=== PATIENT | male | born 1930 | race African-American/Black ===

== ENCOUNTER → 2017-01-20 | Outpatient (CLI) | payer MEDICARE | LOC: RAD 12:19 | PROVIDERS: ATTEND Family Medicine | DX: M79.642 Pain in left hand (principal) ==

== ENCOUNTER 2017-04-19 10:42 | Day surgery (SDC) | payer MEDICARE ==
[~2017-04-19 10:42] MED LIST: PROPOFOL INJ 200 MG/20 ML VIAL IV ONE
[2017-04-19 12:25] VITALS: BP 128/55
--- NOTE | 2017-04-19 13:21 | Operative Report ---
Operative Report DATE OF SURGERY: 04/19/17 Operative Report: The risks, benefits and alternatives of the procedure including risks of bleeding, perforation requiring surgery are explained to the patient detail and informed consent was obtained. Patient was placed in the left, lateral decubital position. Timeout was called. Propofol medications administered. A rectal examination was done which did not reveal any masses, tears or fissures. An Olympus video scope was inserted into the patient's rectum. The scope was then gradually advanced all the way to the cecum. The cecum was identified by the usual anatomical landmarks including the ileocecal valve as well as appendiceal office. Photodocumentation was obtained. Prep was good. Scope was then sequentially pulled back via the rest segments of the colon including the ascending colon, hepatic flexure, transverse colon, splenic flexure, descending colon finally to the rectosigmoid portions of the colon. Retroflexion maneuver was performed. The risks benefits and alternatives of the procedure explained to the patient in detail and informed consent is obtained. A GIF Olympus video scope was inserted into the patient's mouth and hypopharynx, the esophagus is identified intubated and insufflated, the scope was then advanced through the esophagus stomach and duodenum, retroflexion maneuver is done, the esophagus stomach and first and second portions of the duodenum examined PREOPERATIVE DIAGNOSIS: Iron deficiency anemia, rule out GI bleeding. POSTOPERATIVE DIAGNOSIS: Colonoscopy reveals a colon polyp that was removed via snare polypectomy this is located in the sigmoid. Right-sided inflammation status post biopsy. Diverticulosis. Internal hemorrhoids. Upper endoscopy shows gastritis status post biopsy for Helicobacter pylori. No GI bleeding is noted OPERATION: Colonoscopy with snare polypectomy followed by biopsy. EGD with biopsy SURGEON: CATALINA DUTTON ANESTHESIA: LMAC TISSUE REMOVED OR ALTERED: As noted above. COMPLICATIONS: None. ESTIMATED BLOOD LOSS: None. INTRAOPERATIVE FINDINGS: No masses, AVMs noted PROCEDURE: Patient tolerated the procedure well. No immediate postprocedure complications are noted. Patient discharged in good condition. Discharge diet: Regular. Discharge activity: Regular. 2-3 week follow-up to discuss findings. Discharge date 04/19/2017. We will wait and pathology. Patient is instructed to call the office or proceed to the emergency room should there be any further problems or questions. While he does require surveillance colonoscopy in 5 years will depend on his clinical performance status.
== END 2017-04-19 12:00 | disposition home or self-care (01) ==
LOC: END 10:42
PROVIDERS: ATTEND Internal Medicine Gastroenterology
PROC: 0DB68ZX Excision of Stomach, Via Natural or Artificial Opening Endoscopic, Diagnostic (ICD-10-PCS; principal; 2017-04-19 13:00)
PROC: 0DBF8ZX Excision of Right Large Intestine, Via Natural or Artificial Opening Endoscopic, Diagnostic (ICD-10-PCS; 2017-04-19 13:00)
PROC: 0DBM8ZX Excision of Descending Colon, Via Natural or Artificial Opening Endoscopic, Diagnostic (ICD-10-PCS; 2017-04-19 13:00)
DX: D50.9 Iron deficiency anemia, unspecified (principal); D12.4 Benign neoplasm of descending colon; K29.50 Unspecified chronic gastritis without bleeding; B96.81 Helicobacter pylori [H. pylori] as the cause of diseases classified elsewhere; K52.9 Noninfective gastroenteritis and colitis, unspecified; K64.8 Other hemorrhoids; K57.30 Diverticulosis of large intestine without perforation or abscess without bleeding; E78.5 Hyperlipidemia, unspecified; I10 Essential (primary) hypertension; M19.90 Unspecified osteoarthritis, unspecified site; E11.9 Type 2 diabetes mellitus without complications; K21.9 Gastro-esophageal reflux disease without esophagitis; I25.10 Atherosclerotic heart disease of native coronary artery without angina pectoris; N40.0 Benign prostatic hyperplasia without lower urinary tract symptoms; Z86.718 Personal history of other venous thrombosis and embolism; Z95.0 Presence of cardiac pacemaker
CPT/HCPCS: 43239; 45380; 45385; 82962; 88342 ×2; 88305 ×2; J2704; 740

== ENCOUNTER 2017-06-24 11:18 | Inpatient (IN) | payer MEDICARE ==
[2017-06-24] MEDS ORDERED: 1/2 NORMAL SALINE 1,000 ML IV PRN (11:48)
[2017-06-24] MEDS ORDERED: FUROSEMIDE INJ/PF 20 MG/2 ML SDV IV PRN (11:53)
[2017-06-24] MEDS ORDERED: NORMAL SALINE 250 ML IV PRN ×2 (11:53)
[2017-06-24] MEDS ORDERED: INSULIN LISPRO 100 UNIT/ML 3 ML VIAL SUBCUT PRN (11:55)
[2017-06-24] MEDS ORDERED: DEXTROSE 40% GEL 15 GM TUBE PO PRN ×2 (11:55)
[2017-06-24] MEDS ORDERED: DEXTROSE 50%-WATER 25 GM/50 ML DISP.SYRIN IV PRN ×2 (11:55)
[2017-06-24] MEDS ORDERED: GLUCAGON,HUMAN RECOMB 1 MG INJ IM PRN (11:55)
[2017-06-24 13:38] LABS: ABSOLUTE LYMPHOCYTES (AUTO) 0.7 10^3/uL (0.5-4.7); ABSOLUTE MONOCYTES (AUTO) 0.3 10^3/uL (0.1-1.4); ABSOLUTE NEUT (AUTO) 2.6 10^3/uL (1.7-8.2); BASOPHILS % (AUTO) 0.4 % (0-2); EOSINOPHILS % (AUTO) 1.1 % (0-6); HEMATOCRIT 22.3 % (37.9-51.0); HGB HCT DIFFERENCE -0.1; LYMPHOCYTES % (AUTO) 19.6 % (13-45); MEAN CORPUSCULAR HEMOGLOBIN 34.2 pg (27.0-33.4); MEAN CORPUSCULAR HGB CONC 33.2 g/dL (32.0-36.0); MEAN CORPUSCULAR VOLUME 103 fl (80-97); MONOCYTES % (AUTO) 8.7 % (3-13); RED BLOOD COUNT 2.17 10^6/uL (4.35-5.55); RED CELL DISTRIBUTION WIDTH 18.2 % (11.5-14.0); SEGMENTED NEUTROPHILS % (AUTO) 70.2 % (42-78); WHITE BLOOD COUNT 3.7 10^3/uL (4.0-10.5)
[2017-06-24 13:44] LABS: HEMOGLOBIN 7.4 g/dL (13.5-17.0)
--- NOTE | 2017-06-24 13:57 | EKG REPORT ---
SEVERITY:- ABNORMAL ECG - A-V DUAL-PACED RHYTHM WITH SOME INHIBITION : Confirmed by: Bam Salmeron MD 24-Jun-2017 13:56:10
--- NOTE | 2017-06-24 14:03 | PDOC H&P ---
History of Present Illness Admission Date/PCP: 06/24/17 11:18 YUMIKO MATA Patient complains of: Not feeling well History of Present Illness: PRASANNA NAVARRETE is a 87 year old male This is a 87-year-old malePresent in the office yesterdayWith the past medical history of theHypertension hyperlipidemia chronic anemia of chronic Xarelto for the chronic DVTCurrently see a Dr. Fontanez as outpatientAnd the patient's recently have a endoscopy and colonoscopy done by Dr. brady all stable Patient at this point the blood work was drawn and patient hemoglobin was 8And patient's creatinine was 3.75 Patient's last creatinine was 1.4 on the last month Patients denied any chest pain denied any shortness of the breath and no abdominal pain Patient see her Dr. Jimenez as outpatient for a pacemaker and coronary disease And have a sick sinus syndromes status post pacemaker and currently all stable At this point with the multiple comorbidity with possible underlying GI bleed and acute renal failureNeed to further evaluate and admit in the hospital and family all agree Past Medical History Cardiac Medical History: Reports: Hyperlipidema, Hypertension, Other Denies: Coronary Artery Disease, Myocardial Infarction Cardiac History Note: Sick sinus syndrome status post pacemaker Pulmonary Medical History: Denies: Asthma, Bronchitis, Chronic Obstructive Pulmonary Disease (COPD), Pneumonia Neurological Medical History: Denies: Seizures Endocrine Medical History: Reports: Diabetes Mellitus Type 2 Malignancy Medical History: Reports: Other GI Medical History: Denies: Hepatitis, Hiatal Hernia Musculoskeltal Medical History: Reports: Arthritis Hematology: Reports: Anemia Denies: Sickle Cell Disease Past Surgical History Past Surgical History: Reports: Cardiac Catheterization - stents, Pacemaker, Other - History of the brain surgery for the benign lesion Social History Information Source: Patient Lives with: Family Smoking Status: Unknown if Ever Smoked Frequency of Alcohol Use: Occasional Hx Recreational Drug Use: No Hx Prescription Drug Abuse: No Family History Family History: Reviewed & Not Pertinent Parental Family History Reviewed: Yes Children Family History Reviewed: Yes Sibling(s) Family History Reviewed.: Yes Medication/Allergy Home Medications: Amlodipine Besylate [Norvasc 2.5 mg Tablet] 10 mg PO DAILY 11/20/12 Enalapril Maleate [Vasotec 10 Mg Tablet] 20 mg PO DAILY 11/20/12 Hydrochlorothiazide [Hydrodiuril 12.5 mg Capsule] 25 mg PO QAM 11/20/12 Metformin HCl [Glucophage 500 Mg Tablet] 500 mg PO BID 11/20/12 Rosuvastatin Calcium [Crestor 20 mg Tablet] 20 mg PO DAILY 11/20/12 Tamsulosin HCl [Flomax 0.4 mg Cap.sr] 0.4 mg PO DAILY 11/20/12 Cyanocobalamin (Vitamin B-12) [Vitamin B-12 250 mcg Tablet] 250 mcg PO DAILY 06/20 Ergocalciferol (Vitamin D2) [Vitamin D] 600 unit PO DAILY 12/14/14 Rivaroxaban [Xarelto 10 mg Tablet] 20 mg PO DAILY 12/14/14 Allergies/Adverse Reactions: No Known Allergies Allergy (Verified 04/19/17 10:54) Review of Systems Constitutional: PRESENT: fatigue, weakness. ABSENT: chills, fever(s), headache( s), weight gain, weight loss Eyes: ABSENT: visual disturbances Ears: ABSENT: hearing changes Cardiovascular: ABSENT: chest pain, dyspnea on exertion, edema, orthropnea, palpitations Respiratory: ABSENT: cough, hemoptysis Gastrointestinal: ABSENT: abdominal pain, constipation, diarrhea, hematemesis, hematochezia, nausea, vomiting Genitourinary: ABSENT: dysuria, hematuria Musculoskeletal: ABSENT: joint swelling Integumentary: ABSENT: rash, wounds Neurological: ABSENT: abnormal gait, abnormal speech, confusion, dizziness, focal weakness, syncope Psychiatric: ABSENT: anxiety, depression, homidical ideation, suicidal ideation Endocrine: ABSENT: cold intolerance, heat intolerance, menstrual abnormalities, polydipsia, polyuria Hematologic/Lymphatic: ABSENT: easy bleeding, easy bruising, lymphadenopathy Physical Exam Vital Signs: Temp Pulse Resp BP Pulse Ox 97.5 F 66 18 104/47 L 100 06/24/17 12:20 06/24/17 12:20 06/24/17 12:20 06/24/17 12:20 06/24/17 12:20 Intake & Output 06/23/17 06/24/17 06/25/17 06:59 06:59 06:59 Weight 85.1 kg General appearance: PRESENT: no acute distress, well-developed, well-nourished Head exam: PRESENT: atraumatic, normocephalic Eye exam: PRESENT: conjunctiva pink, EOMI, PERRLA. ABSENT: scleral icterus Ear exam: PRESENT: normal external ear exam Mouth exam: PRESENT: moist, tongue midline Neck exam: PRESENT: full ROM. ABSENT: carotid bruit, JVD, lymphadenopathy, thyromegaly Respiratory exam: PRESENT: clear to auscultation ana Cardiovascular exam: PRESENT: RRR. ABSENT: diastolic murmur, rubs, systolic murmur Pulses: PRESENT: normal dorsalis pedis pul, +2 pedal pulses bilateral Vascular exam: PRESENT: normal capillary refill GI/Abdominal exam: PRESENT: normal bowel sounds, soft. ABSENT: distended, guarding, mass, organolmegaly, rebound, tenderness Rectal exam: PRESENT: deferred Extremities exam: PRESENT: pedal edema Neurological exam: PRESENT: alert, awake, oriented to person, oriented to place , oriented to time, oriented to situation, CN II-XII grossly intact. ABSENT: motor sensory deficit Psychiatric exam: PRESENT: appropriate affect, normal mood. ABSENT: homicidal ideation, suicidal ideation Skin exam: PRESENT: dry, intact, warm. ABSENT: cyanosis, rash Results Laboratory Results: 06/24/17 13:09 06/24/17 13:09 WBC 3.7 L RBC 2.17 L Hgb 7.4 L Hct 22.3 L MCV 103 H MCH 34.2 H MCHC 33.2 RDW 18.2 H Plt Count 171 Seg Neutrophils % 70.2 Lymphocytes % 19.6 Monocytes % 8.7 Eosinophils % 1.1 Basophils % 0.4 Absolute Neutrophils 2.6 Absolute Lymphocytes 0.7 Absolute Monocytes 0.3 Absolute Eosinophils 0.0 Absolute Basophils 0.0 Assessment & Plan - Diagnosis (1) Anemia Qualifiers: Anemia type: unspecified type Qualified Code(s): D64.9 - Anemia, unspecified Is this a current diagnosis for this admission?: Yes Plan: Will admit the patient in the hospital transfused a couple of blood while patient is very symptomatic and the patient's may be rule out underlying GI bleed (2) Acute renal failure Qualifiers: Acute renal failure type: unspecified Qualified Code(s): N17.9 - Acute kidney failure, unspecified Is this a current diagnosis for this admission?: Yes Plan: Patient's last creatinine was 1.4 and today's was 3.75 possible may be underlying GI bleed versus dehydration's Will stop the Metformin and stop the lisinopril and stop the hydrochlorothiazideConsult the nephrology (3) GI bleed Qualifiers: GI bleed type/associated pathology: unspecified gastrointestinal hemorrhage type Qualified Code(s): K92.2 - Gastrointestinal hemorrhage, unspecified Is this a current diagnosis for this admission?: Yes Plan: We consulted GI for further evaluation (4) Hypertension Qualifiers: Hypertension type: essential hypertension Qualified Code(s): I10 - Essential (primary) hypertension Is this a current diagnosis for this admission?: Yes Plan: We will currently stop the lisinopril and HCTZ and may be can add the calcium channel jaclyn (5) Chronic deep vein thrombosis (DVT) Qualifiers: Affected thrombotic vein of extremity: unspecified vein of extremity Is this a current diagnosis for this admission?: Yes Plan: We currently hold the Xarelto patient is already have IVC filter placed consult the [employer] for further evaluation (6) Pacemaker Is this a current diagnosis for this admission?: Yes Plan: Currently stable patients denied any cardiac complaints patient also see her Dr. Jimenez as outpatient (7) Type 2 diabetes mellitus Qualifiers: Diabetes mellitus complication status: with unspecified complications Is this a current diagnosis for this admission?: Yes Plan: We currently hold the metformin and continues a sliding scale - Time Time Spent: 30 to 50 Minutes Medications reviewed and adjusted accordingly: Yes Anticipated discharge: Other - Inpatient Certification Medical Necessity: Need Close Monitoring Due to Risk of Patient Decompensation, Need For IV Fluids Post Hospital Care: D/C System Trainer Documentation - Plan Summary Plan Summary: Very extensive discussions with the patient and the daughter and admit the patient in the IMCU see the MD orders patient's currently is a full code
[2017-06-24 14:13] LABS: ALANINE AMINOTRANSFERASE 13 U/L (21-72); ALBUMIN 3.3 g/dL (3.5-5.0); ALKALINE PHOSPHATASE 60 U/L (38-126); ANION GAP 13 (5-19); ASPARTATE AMINO TRANSFERASE 19 U/L (17-59); BILIRUBIN,DIRECT 0.3 mg/dL (0.0-0.4); BILIRUBIN,TOTAL 0.3 mg/dL (0.2-1.3); BLOOD UREA NITROGEN 55 mg/dL (7-20); CALCIUM 8.8 mg/dL (8.4-10.2); CARBON DIOXIDE 25 mmol/L (22-30); CHLORIDE 105 mmol/L (98-107); CREATININE RESULT 3.96 mg/dL (0.52-1.25); GLUCOSE 95 mg/dL (75-110); SODIUM 142.5 mmol/L (137-145); TOTAL PROTEIN 6.5 g/dL (6.3-8.2)
[2017-06-24 14:19] LABS: POTASSIUM 3.1 mmol/L (3.6-5.0)
--- NOTE | 2017-06-24 14:35 | PDOC CONSULTATION ---
Consultation Consult Date: 06/24/17 Attending physician:: CATALINA DUTTON Consult reason:: anemia, ? gi blood loss History of Present Illness Admission Date/PCP: 06/24/17 11:18 YUMIKO MATA History of Present Illness: patient is admitted by Dr Levy patient had been seen earlier this year at that time had EGD and colonoscopy done did have H.Pylori a polyp was removed and noted to be a tubular adenoma had decreasing HGB does need admission for possible transfusion patient denies any gross bleeding has worsening renal function as well Dr Levy has requested an EGD Past Medical History Cardiac Medical History: Reports: Hyperlipidema, Hypertension, Other Denies: Coronary Artery Disease, Myocardial Infarction Pulmonary Medical History: Denies: Asthma, Bronchitis, Chronic Obstructive Pulmonary Disease (COPD), Pneumonia Neurological Medical History: Denies: Seizures Endocrine Medical History: Reports: Diabetes Mellitus Type 2 Malignancy Medical History: Reports: Other GI Medical History: Denies: Hepatitis, Hiatal Hernia Musculoskeltal Medical History: Reports: Arthritis Hematology: Reports: Anemia Denies: Sickle Cell Disease Past Surgical History Past Surgical History: Reports: Cardiac Catheterization - stents, Pacemaker, Other - History of the brain surgery for the benign lesion Social History Lives with: Family Smoking Status: Unknown if Ever Smoked Frequency of Alcohol Use: Occasional Hx Recreational Drug Use: No Hx Prescription Drug Abuse: No Family History Family History: Reviewed & Not Pertinent Parental Family History Reviewed: Yes Children Family History Reviewed: Unknown Sibling(s) Family History Reviewed.: Unknown Medication/Allergy Home Medications: Amlodipine Besylate [Norvasc 2.5 mg Tablet] 10 mg PO DAILY 11/20/12 Enalapril Maleate [Vasotec 10 Mg Tablet] 20 mg PO DAILY 11/20/12 Hydrochlorothiazide [Hydrodiuril 12.5 mg Capsule] 25 mg PO QAM 11/20/12 Metformin HCl [Glucophage 500 Mg Tablet] 500 mg PO BID 11/20/12 Rosuvastatin Calcium [Crestor 20 mg Tablet] 20 mg PO DAILY 11/20/12 Tamsulosin HCl [Flomax 0.4 mg Cap.sr] 0.4 mg PO DAILY 11/20/12 Cyanocobalamin (Vitamin B-12) [Vitamin B-12 250 mcg Tablet] 250 mcg PO DAILY 06/20 Ergocalciferol (Vitamin D2) [Vitamin D] 600 unit PO DAILY 12/14/14 Rivaroxaban [Xarelto 10 mg Tablet] 20 mg PO DAILY 12/14/14 Allergies/Adverse Reactions: No Known Allergies Allergy (Verified 04/19/17 10:54) Review of Systems Constitutional: PRESENT: weakness. ABSENT: fever(s), headache(s), night sweats Eyes: ABSENT: visual disturbances Ears: ABSENT: hearing changes Nose, Mouth, and Throat: ABSENT: mouth pain, sore throat Cardiovascular: ABSENT: edema, orthropnea, palpitations Respiratory: ABSENT: hemoptysis Gastrointestinal: ABSENT: diarrhea, dysphagia, hematochezia, melena Genitourinary: ABSENT: dysuria, hematuria Musculoskeletal: ABSENT: deformity, joint swelling Integumentary: ABSENT: lesions, pruritus Neurological: ABSENT: syncope, tingling, tremor(s), vertigo Endocrine: ABSENT: polydipsia, polyphagia, polyuria Hematologic/Lymphatic: ABSENT: easy bruising Physical Exam Vital Signs: Temp Pulse Resp BP Pulse Ox 97.5 F 66 18 104/47 L 100 06/24/17 12:20 06/24/17 12:20 06/24/17 12:20 06/24/17 12:20 06/24/17 12:20 Intake & Output 06/23/17 06/24/17 06/25/17 06:59 06:59 06:59 Weight 85.1 kg General appearance: PRESENT: no acute distress, well-developed, well-nourished Head exam: PRESENT: atraumatic, normocephalic Eye exam: PRESENT: EOMI, PERRLA. ABSENT: nystagmus, periorbital swelling, scleral icterus Mouth exam: PRESENT: moist Throat exam: ABSENT: tonsillar exudate, tonsillogmegaly Neck exam: ABSENT: meningismus, tenderness, thyromegaly Respiratory exam: PRESENT: symmetrical, unlabored. ABSENT: tachypnea, wheezes Cardiovascular exam: PRESENT: RRR, +S1, +S2 GI/Abdominal exam: PRESENT: soft. ABSENT: Carroll's sign, rebound, rigid, tenderness Extremities exam: ABSENT: joint swelling Musculoskeletal exam: PRESENT: full ROM Neurological exam: PRESENT: oriented to time, oriented to situation, CN II-XII grossly intact Skin exam: PRESENT: normal color. ABSENT: mottled, pallor, urticaria, vesicles Results Laboratory Results: 06/24/17 13:09 06/24/17 13:09 06/24/17 06/24/17 06/24/17 13:09 13:09 13:09 WBC 3.7 L RBC 2.17 L Hgb 7.4 L Hct 22.3 L MCV 103 H MCH 34.2 H MCHC 33.2 RDW 18.2 H Plt Count 171 Seg Neutrophils % 70.2 Lymphocytes % 19.6 Monocytes % 8.7 Eosinophils % 1.1 Basophils % 0.4 Absolute Neutrophils 2.6 Absolute Lymphocytes 0.7 Absolute Monocytes 0.3 Absolute Eosinophils 0.0 Absolute Basophils 0.0 Sodium 142.5 Potassium 3.1 L Chloride 105 Carbon Dioxide 25 Anion Gap 13 BUN 55 H Creatinine 3.96 H Est GFR ( Amer) 18 L Est GFR (Non-Af Amer) 15 L Glucose 95 Calcium 8.8 Total Bilirubin 0.3 AST 19 ALT 13 L Alkaline Phosphatase 60 Total Protein 6.5 Albumin 3.3 L Blood Type A POSITIVE Antibody Screen NEGATIVE Assessment & Plan - Diagnosis (1) H. pylori infection Plan: not sure if patient had completed the treatment will need repeat EGD may need another biopsy to confirm eradication Risks, benefits and alternatives of the procedure are explained to the patient in detail further recommendations to follow (2) Adenomatous colon polyp Plan: biopsy confirms , will need follow up (3) Anemia Qualifiers: Anemia type: unspecified type Qualified Code(s): D64.9 - Anemia, unspecified Is this a current diagnosis for this admission?: Yes Plan: will need to exclude possible GI bleeding could be due to ongoing renal failure patient willing to proceed further recommendations to follow Dr Levy is aware of the plan - Time Time Spent: 50 to 70 Minutes
[2017-06-24] MEDS ORDERED: POTASSIUM CHLORIDE 10 MEQ TABLET.SA PO ONE (16:45)
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
[2017-06-24] MEDS ORDERED: NORMAL SALINE 1000 ML 1,000 ML IV PRN (18:12)
[2017-06-24 21:27] LABS: APPEARANCE,URINE CLOUDY; BILIRUBIN,URINE NEGATIVE (NEGATIVE); GLUCOSE, URINE NEGATIVE (NEGATIVE); KETONES,URINE NEGATIVE (NEGATIVE); LEUKOCYTE ESTERASE,URINE LARGE (NEGATIVE); NITRITE,URINE NEGATIVE (NEGATIVE); PROTEIN,URINE 30 mg/dL (NEGATIVE); URINE SPECIFIC GRAVITY 1.005; UROBILINOGEN,URINE NEGATIVE mg/dL (<2.0)
[2017-06-24] MEDS: PANTOPRAZOLE SODIUM 40 MG VIAL IV SCH (23:41)
[2017-06-25 01:31] LABS: ABSOLUTE EOSINOPHILS # (AUTO) 0.1 10^3/uL (0.0-0.6); ABSOLUTE LYMPHOCYTES (AUTO) 0.5 10^3/uL (0.5-4.7); ABSOLUTE MONOCYTES (AUTO) 0.6 10^3/uL (0.1-1.4); ABSOLUTE NEUT (AUTO) 5.3 10^3/uL (1.7-8.2); BASOPHILS % (AUTO) 0.4 % (0-2); EOSINOPHILS % (AUTO) 0.8 % (0-6); HEMATOCRIT 30.4 % (37.9-51.0); HGB HCT DIFFERENCE 0.5; MEAN CORPUSCULAR HEMOGLOBIN 33.1 pg (27.0-33.4); MEAN CORPUSCULAR HGB CONC 33.9 g/dL (32.0-36.0); MONOCYTES % (AUTO) 8.6 % (3-13); RED BLOOD COUNT 3.12 10^6/uL (4.35-5.55); RED CELL DISTRIBUTION WIDTH 20.6 % (11.5-14.0); SEGMENTED NEUTROPHILS % (AUTO) 82.2 % (42-78); WHITE BLOOD COUNT 6.5 10^3/uL (4.0-10.5)
[2017-06-25 01:42] LABS: HEMOGLOBIN 10.3 g/dL (13.5-17.0); MEAN CORPUSCULAR VOLUME 98 fl (80-97)
[2017-06-25 05:03] LABS: ABSOLUTE LYMPHOCYTES (AUTO) 0.7 10^3/uL (0.5-4.7); ABSOLUTE MONOCYTES (AUTO) 0.5 10^3/uL (0.1-1.4); ABSOLUTE NEUT (AUTO) 5.1 10^3/uL (1.7-8.2); BASOPHILS % (AUTO) 0.2 % (0-2); EOSINOPHILS % (AUTO) 0.8 % (0-6); HEMATOCRIT 29.8 % (37.9-51.0); HEMOGLOBIN 10.1 g/dL (13.5-17.0); HGB HCT DIFFERENCE 0.5; LYMPHOCYTES % (AUTO) 10.7 % (13-45); MEAN CORPUSCULAR HEMOGLOBIN 32.8 pg (27.0-33.4); MEAN CORPUSCULAR VOLUME 96 fl (80-97); MONOCYTES % (AUTO) 7.9 % (3-13); RED BLOOD COUNT 3.09 10^6/uL (4.35-5.55); RED CELL DISTRIBUTION WIDTH 20.8 % (11.5-14.0); SEGMENTED NEUTROPHILS % (AUTO) 80.4 % (42-78); WHITE BLOOD COUNT 6.3 10^3/uL (4.0-10.5)
[2017-06-25 05:15] LABS: ANION GAP 9 (5-19); BLOOD UREA NITROGEN 47 mg/dL (7-20); CARBON DIOXIDE 29 mmol/L (22-30); CHLORIDE 104 mmol/L (98-107); GLUCOSE 94 mg/dL (75-110); POTASSIUM 3.2 mmol/L (3.6-5.0); SODIUM 142.1 mmol/L (137-145)
[2017-06-25 05:51] LABS: MAGNESIUM 1.2 mg/dL (1.6-2.3)
[2017-06-25] MEDS ORDERED: MAGNESIUM SULFATE/D5W 1 GM/100 ML RTUPB IV ONE (06:15)
[2017-06-25] MEDS ORDERED: POTASSIUM CHLORIDE 10 MEQ TABLET.SA PO ONE (07:00)
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
[2017-06-25] MEDS ORDERED: POTASSI CL 20 MEQ/50 ML RIDER 20 MEQ/50 ML RTUPB IV ONE (09:00)
[2017-06-25] MEDS ORDERED: MAGNESIUM SULFATE/D5W 1 GM/100 ML RTUPB IV SCH (10:00)
[2017-06-25] MEDS: NORMAL SALINE 1000 ML 1,000 ML IV PRN (11:21)
[2017-06-25] MEDS ORDERED: MIDAZOLAM 2 MG/2 ML INJ IV ONE (11:40)
--- NOTE | 2017-06-25 12:00 | Operative Report ---
Operative Report DATE OF SURGERY: 06/25/17 Operative Report: The risks benefits and alternatives of the procedure explained to the patient in detail and informed consent is obtained.A GIF Olympus video scope was inserted into the patient's mouth and hypopharynx, the esophagus is identified intubated and insufflated,the scope was then advanced through the esophagus stomach and duodenum ,retroflexion maneuver is done, the esophagus stomach and first and second portions of the duodenum examined PREOPERATIVE DIAGNOSIS: Possible GI bleeding. Previous history of H. pylori gastritis. 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 Continued gastritis OPERATION: EGD with ablation SURGEON: CATALINA DUTTON ANESTHESIA: Moderate Sedation - 2 mg of Versed. Conscious sedation monitoring time 30 minutes. TISSUE REMOVED OR ALTERED: None. COMPLICATIONS: None. ESTIMATED BLOOD LOSS: None. INTRAOPERATIVE FINDINGS: As described above. PROCEDURE: Patient tolerated the procedure well. No immediate postprocedure complications are noted. Patient sent back to room in good condition. Discharge diet: Regular. Discharge activity: Regular. We will see how he responds to the ablative therapy. Iron infusion as planned. Chronic anemia may be due to worsening renal function. Patient had previously been treated for Helicobacter pylori as documented by his daughter No biopsies obtained due to the fact that patient is on Xarelto and did not want to precipitate any further bleeding
[2017-06-25] MEDS ORDERED: FENTANYL CITRATE INJ/PF 100 MCG/2 ML AMPUL ONE (12:56)
[2017-06-25] MEDS ORDERED: NALOXONE HCL INJ/PF 0.4 MG/1 ML SDV ONE (12:56)
[2017-06-25] MEDS ORDERED: MIDAZOLAM 2 MG/2 ML INJ ONE (12:56)
[2017-06-25] MEDS ORDERED: DIPHENHYDRAMINE HCL 50 MG/ML VIAL ONE (12:56)
[2017-06-25] MEDS ORDERED: ONDANSETRON HCL INJ/PF 4 MG/2 ML SDV ONE (12:56)
[2017-06-25] MEDS ORDERED: GLUCAGON,HUMAN RECOMB 1 MG INJ ONE (12:57)
[2017-06-25] MEDS ORDERED: EPINEPHRINE INJ 1 MG/10 ML DISP.SYRIN ONE (12:57)
[2017-06-25] MEDS ORDERED: FLUMAZENIL INJ 0.5 MG/5 ML VIAL ONE (12:57)
[2017-06-25] MEDS: TAMSULOSIN HCL 0.4 MG CAP.SR.24H PO SCH (13:00)
[2017-06-25] MEDS: AMLODIPINE BESYLATE 5 MG TABLET PO SCH (13:00)
[2017-06-25] MEDS: PANTOPRAZOLE SODIUM 40 MG VIAL IV SCH ×2 (13:00→22:37)
--- NOTE | 2017-06-25 13:50 | PDOC PROGRESS REPORT ---
Subjective Progress Note for:: 06/25/17 Subjective:: Dermatology patient is currently doing fair. Patient's denied any chest pain denied any shortness of the breath. Patient's chest x-ray is so some mild cardiomegaly Patients received a 2 units of the blood Physical Exam Vital Signs: Temp Pulse Resp BP Pulse Ox 98.2 F 73 18 119/84 100 06/25/17 13:06 06/25/17 13:06 06/25/17 13:06 06/25/17 13:06 06/25/17 13:06 Intake & Output 06/24/17 06/25/17 06/26/17 06:59 06:59 06:59 Intake Total 1752 50 Output Total 2650 425 Balance -898 -375 Weight 85.6 kg General appearance: PRESENT: no acute distress, well-developed, well-nourished Head exam: PRESENT: atraumatic, normocephalic Eye exam: PRESENT: conjunctiva pink, EOMI, PERRLA. ABSENT: scleral icterus Ear exam: PRESENT: normal external ear exam Mouth exam: PRESENT: moist, tongue midline Neck exam: PRESENT: full ROM. ABSENT: carotid bruit, JVD, lymphadenopathy, thyromegaly Respiratory exam: PRESENT: clear to auscultation ana Cardiovascular exam: PRESENT: RRR. ABSENT: diastolic murmur, rubs, systolic murmur Pulses: PRESENT: normal dorsalis pedis pul, +2 pedal pulses bilateral Vascular exam: PRESENT: normal capillary refill GI/Abdominal exam: PRESENT: normal bowel sounds, soft. ABSENT: distended, guarding, mass, organolmegaly, rebound, tenderness Rectal exam: PRESENT: deferred Neurological exam: PRESENT: alert, awake, oriented to person, oriented to place , oriented to time, oriented to situation, CN II-XII grossly intact. ABSENT: motor sensory deficit Psychiatric exam: PRESENT: appropriate affect, normal mood. ABSENT: homicidal ideation, suicidal ideation Skin exam: PRESENT: dry, intact, warm. ABSENT: cyanosis, rash Results Laboratory Results: 06/25/17 04:26 06/25/17 04:26 06/24/17 06/24/17 06/24/17 13:09 13:09 13:09 WBC 3.7 L RBC 2.17 L Hgb 7.4 L Hct 22.3 L MCV 103 H MCH 34.2 H MCHC 33.2 RDW 18.2 H Plt Count 171 Seg Neutrophils % 70.2 Lymphocytes % 19.6 Monocytes % 8.7 Eosinophils % 1.1 Basophils % 0.4 Absolute Neutrophils 2.6 Absolute Lymphocytes 0.7 Absolute Monocytes 0.3 Absolute Eosinophils 0.0 Absolute Basophils 0.0 Sodium 142.5 Potassium 3.1 L Chloride 105 Carbon Dioxide 25 Anion Gap 13 BUN 55 H Creatinine 3.96 H Est GFR ( Amer) 18 L Est GFR (Non-Af Amer) 15 L Glucose 95 Calcium 8.8 Magnesium Iron TIBC % Saturation Ferritin Total Bilirubin 0.3 AST 19 ALT 13 L Alkaline Phosphatase 60 Total Protein 6.5 Albumin 3.3 L Urine Color Urine Appearance Urine pH Ur Specific [place] Urine Protein Urine Glucose (UA) Urine Ketones Urine Blood Urine Nitrite Ur Leukocyte Esterase Urine WBC (Auto) Urine RBC (Auto) Blood Type A POSITIVE Antibody Screen NEGATIVE 06/24/17 06/25/17 06/25/17 20:30 01:24 04:26 WBC 6.5 RBC 3.12 L Hgb 10.3 L D Hct 30.4 L MCV 98 H D MCH 33.1 MCHC 33.9 RDW 20.6 H Plt Count 169 Seg Neutrophils % 82.2 H Lymphocytes % 8.0 L Monocytes % 8.6 Eosinophils % 0.8 Basophils % 0.4 Absolute Neutrophils 5.3 Absolute Lymphocytes 0.5 Absolute Monocytes 0.6 Absolute Eosinophils 0.1 Absolute Basophils 0.0 Sodium 142.1 Potassium 3.2 L Chloride 104 Carbon Dioxide 29 Anion Gap 9 BUN 47 H Creatinine 3.40 H Est GFR ( Amer) 21 L Est GFR (Non-Af Amer) 17 L Glucose 94 Calcium 9.0 Magnesium 1.2 L* Iron 57.6 TIBC 260 % Saturation 22 Ferritin 311.00 Total Bilirubin AST ALT Alkaline Phosphatase Total Protein Albumin Urine Color YELLOW Urine Appearance CLOUDY Urine pH 5.0 Ur Specific [place] 1.005 Urine Protein 30 H Urine Glucose (UA) NEGATIVE Urine Ketones NEGATIVE Urine Blood LARGE H Urine Nitrite NEGATIVE Ur Leukocyte Esterase LARGE H Urine WBC (Auto) >182 Urine RBC (Auto) 21 Blood Type Antibody Screen 06/25/17 04:26 WBC 6.3 RBC 3.09 L Hgb 10.1 L Hct 29.8 L MCV 96 MCH 32.8 MCHC 34.0 RDW 20.8 H Plt Count 171 Seg Neutrophils % 80.4 H Lymphocytes % 10.7 L Monocytes % 7.9 Eosinophils % 0.8 Basophils % 0.2 Absolute Neutrophils 5.1 Absolute Lymphocytes 0.7 Absolute Monocytes 0.5 Absolute Eosinophils 0.0 Absolute Basophils 0.0 Sodium Potassium Chloride Carbon Dioxide Anion Gap BUN Creatinine Est GFR ( Amer) Est GFR (Non-Af Amer) Glucose Calcium Magnesium Iron TIBC % Saturation Ferritin Total Bilirubin AST ALT Alkaline Phosphatase Total Protein Albumin Urine Color Urine Appearance Urine pH Ur Specific [place] Urine Protein Urine Glucose (UA) Urine Ketones Urine Blood Urine Nitrite Ur Leukocyte Esterase Urine WBC (Auto) Urine RBC (Auto) Blood Type Antibody Screen 06/24/17 13:09 Creatine Kinase 146 Assessment & Plan - Diagnosis (1) Anemia Qualifiers: Anemia type: iron deficiency Iron deficiency anemia type: chronic blood loss Qualified Code(s): D50.0 - Iron deficiency anemia secondary to blood loss (chronic) Is this a current diagnosis for this admission?: Yes Plan: Status post 2 units of the blood no sign of any active bleeding in the hospitalShe is going for the endoscopy today (2) Acute renal failure Qualifiers: Acute renal failure type: unspecified Qualified Code(s): N17.9 - Acute kidney failure, unspecified Is this a current diagnosis for this admission?: Yes Plan: Currently stable follow with the nephrology (3) GI bleed Qualifiers: GI bleed type/associated pathology: unspecified gastrointestinal hemorrhage type Qualified Code(s): K92.2 - Gastrointestinal hemorrhage, unspecified Is this a current diagnosis for this admission?: Yes Plan: We consulted GI for further evaluation (4) Hypertension Qualifiers: Hypertension type: essential hypertension Qualified Code(s): I10 - Essential (primary) hypertension Is this a current diagnosis for this admission?: Yes Plan: We will currently stop the lisinopril and HCTZ and may be can add the calcium channel jaclyn (5) Chronic deep vein thrombosis (DVT) Qualifiers: DVT location: lower extremity Affected thrombotic vein of extremity: femoral Laterality: right Qualified Code(s): I82.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 Is this a current diagnosis for this admission?: Yes Plan: We currently hold the Xarelto patient is already have IVC filter placed consult the veterinary technologist for further evaluation (6) Pacemaker Is this a current diagnosis for this admission?: Yes Plan: We will get the echocardiogram (7) Type 2 diabetes mellitus Qualifiers: Diabetes mellitus complication status: with unspecified complications Is this a current diagnosis for this admission?: Yes Plan: We currently hold the metformin and continues a sliding scale - Time Time Spent with patient: 15-24 minutes Medications reviewed and adjusted accordingly: Yes Anticipated discharge: Home Within: Other - Inpatient Certification Medical Necessity: Need Close Monitoring Due to Risk of Patient Decompensation Post Hospital Care: D/C Genetic Supervisor Documentation - Plan Summary Plan Summary: Discussed with the patient and the daughter on the room with all plan continues to monitor
--- NOTE | 2017-06-25 14:57 | RADIOLOGY REPORT (SQ) ---
EXAM DESCRIPTION: CT brain without contrast COMPLETED DATE/TIME: 06/24/2017, 1415 hours REASON FOR STUDY: Altered mental status COMPARISON: 01/08/2013 TECHNIQUE: Non contrasted CT brain was performed, reviewed at bone and subdural and brain parenchyma l windows. RADIATION DOSE: 49 mGy LIMITATIONS: None FINDINGS: Bone windows demonstrate an old bifrontal craniotomy. No acute calvarial fracture. Paran patricia sinuses, mastoid air cells are clear. Brain parenchymal and subdural windows demonstrate no CT evidence of acute large territory ischemic c hange, acute intracranial hemorrhage, mass effect, or midline shift. There are chronic appearing areas of encephalomalacia in the right frontal lobe and left posterior te mporal regions. Spotty chronic low attenuation in the bifrontal and biparietal white matter from sma ll vessel disease. IMPRESSION: No acute findings. Encephalomalacia in the right frontal and left posterior temporal regions. 

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
--- NOTE | 2017-06-25 14:57 | RADIOLOGY REPORT (SQ) ---
EXAM DESCRIPTION: Bilateral renal ultrasound COMPLETED DATE/TIME: 06/24/2017, 1417 hours REASON FOR STUDY: Renal failure COMPARISON: Bilateral renal ultrasound 10/19/2013 CT abdomen pelvis 12/16/2012 KUB 06/29/2016 TECHNIQUE: Bilateral renal ultrasound and urinary bladder ultrasound was performed. Grayscale and l imited color-flow images saved to pac's. LIMITATIONS: None FINDINGS: Patient is post left nephrectomy. The right kidney measures 14.4 cm in length. No right-sided hydronephrosis. Normal cortical thickne ss and echogenicity. 1.4 cm right midpole renal cortical cyst. No right renal calculi. Limited views of the urinary bladder unremarkable. IMPRESSION: Post left nephrectomy. No right-sided hydronephrosis or hydroureter. Normal size right kidney with normal cortical thicknes s and echogenicity.
--- NOTE | 2017-06-25 18:18 | PDOC PROGRESS REPORT ---
Subjective Progress Note for:: 06/25/17 Subjective:: Patient was seen laying in his bed. He was doing well with no complaints. He says that he is producing more urine than he has ever produced in a day. He produced 2.6L yesterday. He is receiving IV fluids. He does not complain of chest pain, sob or increased swelling. Physical Exam Vital Signs: Temp Pulse Resp BP Pulse Ox 98.7 F 81 20 120/66 100 06/25/17 15:43 06/25/17 15:43 06/25/17 15:43 06/25/17 15:43 06/25/17 15:43 Intake & Output 06/24/17 06/25/17 06/26/17 06:59 06:59 06:59 Intake Total 1752 50 Output Total 2650 425 Balance -898 -375 Weight 85.6 kg General appearance: PRESENT: no acute distress, well-developed, well-nourished Head exam: PRESENT: atraumatic, normocephalic Mouth exam: PRESENT: moist, tongue midline Neck exam: PRESENT: full ROM. ABSENT: JVD, tracheal deviation Respiratory exam: PRESENT: clear to auscultation ana. ABSENT: accessory muscle use, chest wall tenderness, crackles Cardiovascular exam: PRESENT: RRR, +S1, +S2 GI/Abdominal exam: PRESENT: normal bowel sounds, soft. ABSENT: ascites, diminished bowel sounds, distended, firm, guarding, hyperactive bowel sounds, hypoactive bowel sounds, tenderness Extremities exam: ABSENT: joint swelling, pedal edema Musculoskeletal exam: PRESENT: normal inspection. ABSENT: deformity Neurological exam: PRESENT: alert, awake, oriented to person, oriented to place , oriented to time, oriented to situation Psychiatric exam: PRESENT: appropriate affect, normal mood Skin exam: PRESENT: dry, intact, warm Results Laboratory Results: 06/25/17 04:26 06/25/17 04:26 06/24/17 06/24/17 06/25/17 13:09 20:30 01:24 WBC 6.5 RBC 3.12 L Hgb 10.3 L D Hct 30.4 L MCV 98 H D MCH 33.1 MCHC 33.9 RDW 20.6 H Plt Count 169 Seg Neutrophils % 82.2 H Lymphocytes % 8.0 L Monocytes % 8.6 Eosinophils % 0.8 Basophils % 0.4 Absolute Neutrophils 5.3 Absolute Lymphocytes 0.5 Absolute Monocytes 0.6 Absolute Eosinophils 0.1 Absolute Basophils 0.0 Sodium Potassium Chloride Carbon Dioxide Anion Gap BUN Creatinine Est GFR ( Amer) Est GFR (Non-Af Amer) Glucose Calcium Magnesium Iron TIBC % Saturation Ferritin Urine Color YELLOW Urine Appearance CLOUDY Urine pH 5.0 Ur Specific [place] 1.005 Urine Protein 30 H Urine Glucose (UA) NEGATIVE Urine Ketones NEGATIVE Urine Blood LARGE H Urine Nitrite NEGATIVE Ur Leukocyte Esterase LARGE H Urine WBC (Auto) >182 Urine RBC (Auto) 21 Blood Type A POSITIVE Antibody Screen NEGATIVE 06/25/17 06/25/17 04:26 04:26 WBC 6.3 RBC 3.09 L Hgb 10.1 L Hct 29.8 L MCV 96 MCH 32.8 MCHC 34.0 RDW 20.8 H Plt Count 171 Seg Neutrophils % 80.4 H Lymphocytes % 10.7 L Monocytes % 7.9 Eosinophils % 0.8 Basophils % 0.2 Absolute Neutrophils 5.1 Absolute Lymphocytes 0.7 Absolute Monocytes 0.5 Absolute Eosinophils 0.0 Absolute Basophils 0.0 Sodium 142.1 Potassium 3.2 L Chloride 104 Carbon Dioxide 29 Anion Gap 9 BUN 47 H Creatinine 3.40 H Est GFR ( Amer) 21 L Est GFR (Non-Af Amer) 17 L Glucose 94 Calcium 9.0 Magnesium 1.2 L* Iron 57.6 TIBC 260 % Saturation 22 Ferritin 311.00 Urine Color Urine Appearance Urine pH Ur Specific [place] Urine Protein Urine Glucose (UA) Urine Ketones Urine Blood Urine Nitrite Ur Leukocyte Esterase Urine WBC (Auto) Urine RBC (Auto) Blood Type Antibody Screen 06/24/17 13:09 Creatine Kinase 146 Impressions: Head CT 06/24/17 00:00 IMPRESSION: No acute findings. Encephalomalacia in the right frontal and left posterior temporal regions. Moderate small vessel chronic white matter disease. Renal Ultrasound 06/24/17 00:00 IMPRESSION: Post left nephrectomy. No right-sided hydronephrosis or hydroureter. Normal size right kidney with normal cortical thickness and echogenicity. Chest X-Ray 06/24/17 11:51 IMPRESSION: No acute findings. Assessment & Plan - Diagnosis (1) MADIE (acute kidney injury) Plan: Creatinine is on its way down. Looks to be from dehydration. Would recommend NS at 100mL an hour. Also scheduled daily magnesium replacement and recommend daily potassium replacement as he goes through diuresis phase of kidney recovery. (2) Hypokalemia Plan: Recommend 20 to 40mEQ daily of PO potassium until kidneys have recovered (3) Anemia Qualifiers: Anemia type: iron deficiency Iron deficiency anemia type: chronic blood loss Qualified Code(s): D50.0 - Iron deficiency anemia secondary to blood loss (chronic) Is this a current diagnosis for this admission?: Yes Plan: currently stable in the 10s (4) Hypertension Qualifiers: Hypertension type: essential hypertension Qualified Code(s): I10 - Essential (primary) hypertension Is this a current diagnosis for this admission?: Yes Plan: controlled (5) Type 2 diabetes mellitus Qualifiers: Diabetes mellitus complication status: with unspecified complications Is this a current diagnosis for this admission?: Yes Plan: controlled (6) Hypomagnesemia Plan: 1g of IV magnesium daily as kidneys heal
[2017-06-25] MEDS ORDERED: (PENDING PHARMACY ID) (Rosuvastatin Calcium [Crestor 20 Mg Tablet] 20 MG) PO SCH (22:00)
[2017-06-25] MEDS: ATORVASTATIN CALCIUM 40 MG TABLET PO SCH (22:37)
--- NOTE | 2017-06-26 | XCELERA REPORT ---
[address] [address] Transthoracic Echocardiogram Report Name: PRASANNA NAVARRETE Age: 87 yrs Gender: Male : 1930 Patient Status: Inpatient Patient Location: [address] [place] [address] Study Date: 06/25/2017 10:52 AM Procedure: A complete two-dimensional transthoracic echocardiogram was performed (2D, M-mode, spectral and color flow Doppler). The study was technically difficult with many images being suboptimal in quality. Reason For Study: [email or web address]/[email or web address] Ordering Physician: JEANNIE EISENBERG Performed By: Verito Hunter Interpretation Summary The study was technically difficult with many images being suboptimal in quality. Left ventricular systolic function is borderline reduced. Doppler measurements suggest pseudonormalized left ventricular relaxation, which is associated with grade II/IV or mild to moderate diastolic dysfunction There is mild concentric left ventricular hypertrophy. The left ventricle is grossly normal size. Apical wall motion abnormality may reflect pacemaker activation The right ventricular systolic function is normal. The left atrium is mildly dilated. The right atrium is normal. There is a mild amount of mitral regurgitation There is no mitral valve stenosis. There is no aortic valve stenosis There is a trace amount of aortic regurgitation There is a trace to mild amount of tricuspid regurgitation There is mild pulmonary hypertension by echo Best estimated right ventricular systolic pressure is elevated at 30- 40mmHg. The aortic root is not well visualized. The inferior vena cava was not well visualized There is no pericardial effusion. MMode/2D Measurements & Calculations RVDd: 3.7 cm LVIDd: 5.6 cm FS: 26.5 % Ao root diam: 3.6 cm IVSd: 1.1 cm LVIDs: 4.1 cm EDV(Teich): 153.5 ml Ao root area: 10.2 cm2 LVPWd: 1.1 cm ESV(Teich): 74.9 ml LA dimension: 3.7 cm EF(Teich): 51.2 % Doppler Measurements & Calculations MV E max lo: MV P1/2t max lo: Ao V2 max: LV V1 max P.6 cm/sec 69.1 cm/sec 112.8 cm/sec 3.4 mmHg MV A max lo: MV P1/2t: 68.5 msec Ao max PG: LV V1 max: 92.8 cm/sec MVA(P1/2t): 3.2 cm2 5.1 mmHg 92.8 cm/sec MV E/A: 0.75 MV dec slope: 295.5 cm/sec2 MV dec time: 0.25 sec PA V2 max: TR max lo: 83.9 cm/sec 272.8 cm/sec PA max PG: TR max P.8 mmHg 2.8 mmHg Left Ventricle The left ventricle is grossly normal size. There is mild concentric left ventricular hypertrophy. Left ventricular systolic function is borderline reduced. Doppler measurements suggest pseudonormalized left ventricular relaxation, which is associated with grade II/IV or mild to moderate diastolic dysfunction. Apical wall motion abnormality may reflect pacemaker activation. Right Ventricle The right ventricle is grossly normal size. There is normal right ventricular wall thickness. The right ventricular systolic function is normal. Atria The right atrium is normal. The left atrium is mildly dilated. Interarterial septum not well visualized and not well dopplered. Cannot comment on ASD/PFO presence. Mitral Valve The mitral valve leaflets are sclerotic, but show no functional abnormalities. There is no mitral valve stenosis. There is a mild amount of mitral regurgitation. Aortic Valve The aortic valve is grossly normal. There is no aortic valve stenosis. There is a trace amount of aortic regurgitation. Tricuspid Valve The tricuspid valve is not well visualized, but is grossly normal. There is no tricuspid stenosis. There is a trace to mild amount of tricuspid regurgitation. There is mild pulmonary hypertension by echo. Best estimated right ventricular systolic pressure is elevated at 30-40mmHg. Pulmonic Valve The pulmonic valve is not well visualized. Great Vessels The aortic root is not well visualized. The inferior vena cava was not well visualized. Effusions There is no pericardial effusion. : JEANNIE EISENBERG > Sarahi Orellana
[2017-06-26] MEDS: NORMAL SALINE 1000 ML 1,000 ML IV PRN ×2 (04:15→23:24)
[2017-06-26 05:07] LABS: ANION GAP 11 (5-19); BLOOD UREA NITROGEN 35 mg/dL (7-20); CALCIUM 8.6 mg/dL (8.4-10.2); CARBON DIOXIDE 27 mmol/L (22-30); CHLORIDE 103 mmol/L (98-107); GLUCOSE 90 mg/dL (75-110); SODIUM 140.8 mmol/L (137-145)
[2017-06-26 05:09] LABS: POTASSIUM 2.9 mmol/L (3.6-5.0)
[2017-06-26] MEDS ORDERED: POTASSIUM CHLORIDE 20 MEQ/15 ML UDCUP PO ONE (05:30)
--- NOTE | 2017-06-26 09:09 | PDOC PROGRESS REPORT ---
Subjective Progress Note for:: 06/26/17 Subjective:: Patient is currently doing fair patients denied any chest pain denied any shortness of the breath. Patient underwent for the endoscopy and all stable. Some echocardiogram with some mild reduced EF but otherwise all stable Potassium is low Physical Exam Vital Signs: Temp Pulse Resp BP Pulse Ox 98.8 F 79 18 121/74 100 06/26/17 07:24 06/26/17 07:24 06/26/17 07:24 06/26/17 07:24 06/26/17 07:24 Intake & Output 06/25/17 06/26/17 06/27/17 06:59 06:59 06:59 Intake Total 1752 3926 Output Total 2650 1950 Balance -898 1976 Weight 85.6 kg 83.7 kg General appearance: PRESENT: no acute distress, well-developed, well-nourished Head exam: PRESENT: atraumatic, normocephalic Eye exam: PRESENT: conjunctiva pink, EOMI, PERRLA. ABSENT: scleral icterus Ear exam: PRESENT: normal external ear exam Mouth exam: PRESENT: moist, tongue midline Neck exam: PRESENT: full ROM. ABSENT: carotid bruit, JVD, lymphadenopathy, thyromegaly Respiratory exam: PRESENT: clear to auscultation ana Cardiovascular exam: PRESENT: RRR. ABSENT: diastolic murmur, rubs, systolic murmur Pulses: PRESENT: normal dorsalis pedis pul, +2 pedal pulses bilateral Vascular exam: PRESENT: normal capillary refill GI/Abdominal exam: PRESENT: normal bowel sounds, soft. ABSENT: distended, guarding, mass, organolmegaly, rebound, tenderness Rectal exam: PRESENT: deferred Neurological exam: PRESENT: alert, awake, oriented to person, oriented to place , oriented to time, oriented to situation, CN II-XII grossly intact. ABSENT: motor sensory deficit Psychiatric exam: PRESENT: appropriate affect, normal mood. ABSENT: homicidal ideation, suicidal ideation Skin exam: PRESENT: dry, intact, warm. ABSENT: cyanosis, rash Results Laboratory Results: 06/25/17 04:26 06/26/17 04:19 06/26/17 04:19 Sodium 140.8 Potassium 2.9 L* Chloride 103 Carbon Dioxide 27 Anion Gap 11 BUN 35 H Creatinine 2.60 H Est GFR ( Amer) 29 L Est GFR (Non-Af Amer) 24 L Glucose 90 Calcium 8.6 06/24/17 13:09 Creatine Kinase 146 Impressions: Head CT 06/24/17 00:00 IMPRESSION: No acute findings. Encephalomalacia in the right frontal and left posterior temporal regions. Moderate small vessel chronic white matter disease. Renal Ultrasound 06/24/17 00:00 IMPRESSION: Post left nephrectomy. No right-sided hydronephrosis or hydroureter. Normal size right kidney with normal cortical thickness and echogenicity. Chest X-Ray 06/24/17 11:51 IMPRESSION: No acute findings. Assessment & Plan - Diagnosis (1) Anemia Qualifiers: Anemia type: iron deficiency Iron deficiency anemia type: chronic blood loss Qualified Code(s): D50.0 - Iron deficiency anemia secondary to blood loss (chronic) Is this a current diagnosis for this admission?: Yes Plan: All stable (2) Acute renal failure Qualifiers: Acute renal failure type: unspecified Qualified Code(s): N17.9 - Acute kidney failure, unspecified Is this a current diagnosis for this admission?: Yes Plan: All improving continues IV fluid (3) GI bleed Qualifiers: GI bleed type/associated pathology: unspecified gastrointestinal hemorrhage type Qualified Code(s): K92.2 - Gastrointestinal hemorrhage, unspecified Is this a current diagnosis for this admission?: Yes Plan: Sign of any active GI bleed and now (4) Hypertension Qualifiers: Hypertension type: essential hypertension Qualified Code(s): I10 - Essential (primary) hypertension Is this a current diagnosis for this admission?: Yes Plan: We will currently stop the lisinopril and HCTZ and may be can add the calcium channel jaclyn (5) Chronic deep vein thrombosis (DVT) Qualifiers: DVT location: lower extremity Affected thrombotic vein of extremity: femoral Laterality: right Qualified Code(s): I82.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 Is this a current diagnosis for this admission?: Yes Plan: We currently hold the Xarelto patient is already have IVC filter placed consult the railroad supervisor of engines for further evaluation (6) Pacemaker Is this a current diagnosis for this admission?: Yes Plan: Cardiogram is currently all stable (7) Type 2 diabetes mellitus Qualifiers: Diabetes mellitus complication status: with unspecified complications Is this a current diagnosis for this admission?: Yes Plan: We may consider to start the patient on the p.o. glipizide (8) Hypokalemia Is this a current diagnosis for this admission?: Yes Plan: Replace the potassium - Time Time Spent with patient: 15-24 minutes Medications reviewed and adjusted accordingly: Yes Anticipated discharge: Home Within: within 24 hours, Other - Inpatient Certification Medical Necessity: Need Close Monitoring Due to Risk of Patient Decompensation Post Hospital Care: D/C Curing Supervisor Documentation - Plan Summary Plan Summary: Discussed with the patient and the daughter regarding the patient's current conditions will replace the potassiums and if they remain stable next 24to 48 hrs. patients can be discharged
[2017-06-26] MEDS ORDERED: POTASSIUM CHLORIDE 10 MEQ TABLET.SA PO ONE ×2 (09:30→18:20)
[2017-06-26] MEDS ORDERED: MAGNESIUM SULFATE/D5W 1 GM/100 ML RTUPB IV SCH (10:00)
[2017-06-26] MEDS: TAMSULOSIN HCL 0.4 MG CAP.SR.24H PO SCH (10:27)
[2017-06-26] MEDS: AMLODIPINE BESYLATE 5 MG TABLET PO SCH (10:27)
[2017-06-26] MEDS: PANTOPRAZOLE SODIUM 40 MG VIAL IV SCH ×2 (10:28→22:12)
--- NOTE | 2017-06-26 11:59 | PDOC PROGRESS REPORT ---
Subjective Progress Note for:: 06/26/17 Subjective:: Patient had EGD yesterday, AVM cauterized, patient looks better overall, no active bleeding over the last 24 hours Physical Exam Vital Signs: Temp Pulse Resp BP Pulse Ox 98.8 F 79 18 121/74 100 06/26/17 07:24 06/26/17 07:24 06/26/17 07:24 06/26/17 07:24 06/26/17 07:24 Intake & Output 06/25/17 06/26/17 06/27/17 06:59 06:59 06:59 Intake Total 1752 3926 Output Total 2650 1950 Balance -898 1976 Weight 85.6 kg 83.7 kg General appearance: PRESENT: no acute distress, well-developed, well-nourished Head exam: PRESENT: atraumatic, normocephalic Eye exam: PRESENT: conjunctiva pink, EOMI, PERRLA. ABSENT: scleral icterus Ear exam: PRESENT: normal external ear exam Mouth exam: PRESENT: moist, tongue midline Neck exam: ABSENT: carotid bruit, JVD, lymphadenopathy, thyromegaly Respiratory exam: PRESENT: clear to auscultation ana. ABSENT: rales, rhonchi, wheezes Cardiovascular exam: PRESENT: RRR. ABSENT: diastolic murmur, rubs, systolic murmur Pulses: PRESENT: normal dorsalis pedis pul Vascular exam: PRESENT: normal capillary refill GI/Abdominal exam: PRESENT: normal bowel sounds, soft. ABSENT: distended, guarding, mass, organolmegaly, rebound, tenderness Rectal exam: PRESENT: deferred Extremities exam: PRESENT: full ROM. ABSENT: calf tenderness, clubbing, pedal edema Neurological exam: PRESENT: alert, awake, oriented to person, oriented to place , oriented to time, oriented to situation, CN II-XII grossly intact. ABSENT: motor sensory deficit Psychiatric exam: PRESENT: appropriate affect, normal mood. ABSENT: homicidal ideation, suicidal ideation Skin exam: PRESENT: dry, intact, warm. ABSENT: cyanosis, rash Results Laboratory Results: 06/25/17 04:26 06/26/17 04:19 06/26/17 06/26/17 04:19 04:19 Sodium 140.8 Potassium 2.9 L* Chloride 103 Carbon Dioxide 27 Anion Gap 11 BUN 35 H Creatinine 2.60 H Est GFR ( Amer) 29 L Est GFR (Non-Af Amer) 24 L Glucose 90 Calcium 8.6 Magnesium 1.2 L* 06/24/17 13:09 Creatine Kinase 146 Impressions: Head CT 06/24/17 00:00 IMPRESSION: No acute findings. Encephalomalacia in the right frontal and left posterior temporal regions. Moderate small vessel chronic white matter disease. Renal Ultrasound 06/24/17 00:00 IMPRESSION: Post left nephrectomy. No right-sided hydronephrosis or hydroureter. Normal size right kidney with normal cortical thickness and echogenicity. Chest X-Ray 06/24/17 11:51 IMPRESSION: No acute findings. 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 Most likely if he is going to transition back to anticoagulation we will use Eliquis 2.5 mg twice daily instead of Xarelto (2) Anemia Qualifiers: Anemia type: iron deficiency Iron deficiency anemia type: chronic blood loss Qualified Code(s): D50.0 - Iron deficiency anemia secondary to blood loss (chronic) Is this a current diagnosis for this admission?: Yes Plan: Secondary to AVMs, this will probably be recurrent, also anemia of chronic disease, we will need to give IV iron as well as consider Procrit as an outpatient as well. - Time Time Spent with patient: 35 or more minutes Critical Time spent with patient: 35 or more minutes
[2017-06-26] MEDS ORDERED: MAGNESIUM SULFATE/D5W 1 GM/100 ML RTUPB IV ONE (12:45)
[2017-06-26] MEDS: ATORVASTATIN CALCIUM 40 MG TABLET PO SCH (22:12)
[2017-06-27 05:07] LABS: ABSOLUTE EOSINOPHILS # (AUTO) 0.1 10^3/uL (0.0-0.6); ABSOLUTE LYMPHOCYTES (AUTO) 0.7 10^3/uL (0.5-4.7); ABSOLUTE MONOCYTES (AUTO) 0.6 10^3/uL (0.1-1.4); ABSOLUTE NEUT (AUTO) 3.8 10^3/uL (1.7-8.2); BASOPHILS % (AUTO) 0.7 % (0-2); EOSINOPHILS % (AUTO) 1.1 % (0-6); HEMATOCRIT 29.7 % (37.9-51.0); HGB HCT DIFFERENCE 0.3; LYMPHOCYTES % (AUTO) 13.1 % (13-45); MEAN CORPUSCULAR HGB CONC 33.8 g/dL (32.0-36.0); MEAN CORPUSCULAR VOLUME 98 fl (80-97); MONOCYTES % (AUTO) 11.2 % (3-13); RED BLOOD COUNT 3.04 10^6/uL (4.35-5.55); RED CELL DISTRIBUTION WIDTH 20.8 % (11.5-14.0); SEGMENTED NEUTROPHILS % (AUTO) 73.9 % (42-78); WHITE BLOOD COUNT 5.1 10^3/uL (4.0-10.5)
[2017-06-27 05:20] LABS: ANION GAP 7 (5-19); BLOOD UREA NITROGEN 27 mg/dL (7-20); CALCIUM 8.4 mg/dL (8.4-10.2); CARBON DIOXIDE 27 mmol/L (22-30); CHLORIDE 106 mmol/L (98-107); CREATININE RESULT 2.31 mg/dL (0.52-1.25); GLUCOSE 96 mg/dL (75-110); POTASSIUM 3.5 mmol/L (3.6-5.0); SODIUM 140.2 mmol/L (137-145)
[2017-06-27] MEDS ORDERED: POTASSIUM CHLORIDE 10 MEQ TABLET.SA PO ONE (07:22)
--- NOTE | 2017-06-27 07:43 | PDOC PROGRESS REPORT ---
Subjective Progress Note for:: 06/27/17 Subjective:: pt is doing well.no chest pain and no sob h/h is stable Physical Exam Vital Signs: Temp Pulse Resp BP Pulse Ox 99.3 F 63 14 118/68 100 06/27/17 04:26 06/27/17 06:58 06/27/17 04:26 06/27/17 04:26 06/27/17 04:26 Intake & Output 06/26/17 06/27/17 06/28/17 06:59 06:59 06:59 Intake Total 3926 1682 Output Total 1950 1055 Balance 1976 627 Weight 83.7 kg 86.4 kg General appearance: PRESENT: no acute distress, well-developed, well-nourished Head exam: PRESENT: atraumatic, normocephalic Eye exam: PRESENT: conjunctiva pink, EOMI, PERRLA. ABSENT: scleral icterus Ear exam: PRESENT: normal external ear exam Mouth exam: PRESENT: moist, tongue midline Neck exam: PRESENT: full ROM. ABSENT: carotid bruit, JVD, lymphadenopathy, thyromegaly Cardiovascular exam: PRESENT: RRR. ABSENT: diastolic murmur, rubs, systolic murmur Pulses: PRESENT: normal dorsalis pedis pul, +2 pedal pulses bilateral Vascular exam: PRESENT: normal capillary refill GI/Abdominal exam: PRESENT: normal bowel sounds, soft. ABSENT: distended, guarding, mass, organolmegaly, rebound, tenderness Rectal exam: PRESENT: deferred Neurological exam: PRESENT: alert, awake, oriented to person, oriented to place , oriented to time, oriented to situation, CN II-XII grossly intact. ABSENT: motor sensory deficit Psychiatric exam: PRESENT: appropriate affect, normal mood. ABSENT: homicidal ideation, suicidal ideation Skin exam: PRESENT: dry, intact, warm. ABSENT: cyanosis, rash Results Laboratory Results: 06/27/17 04:09 06/27/17 04:09 06/26/17 06/26/17 06/27/17 04:19 13:06 04:09 WBC RBC Hgb Hct MCV MCH MCHC RDW Plt Count Seg Neutrophils % Lymphocytes % Monocytes % Eosinophils % Basophils % Absolute Neutrophils Absolute Lymphocytes Absolute Monocytes Absolute Eosinophils Absolute Basophils Sodium 140.2 Potassium 3.3 L 3.5 L Chloride 106 Carbon Dioxide 27 Anion Gap 7 BUN 27 H Creatinine 2.31 H Est GFR ( Amer) 33 L Est GFR (Non-Af Amer) 27 L Glucose 96 Calcium 8.4 Magnesium 1.2 L* 06/27/17 04:09 WBC 5.1 RBC 3.04 L Hgb 10.0 L Hct 29.7 L MCV 98 H MCH 33.0 MCHC 33.8 RDW 20.8 H Plt Count 165 Seg Neutrophils % 73.9 Lymphocytes % 13.1 Monocytes % 11.2 Eosinophils % 1.1 Basophils % 0.7 Absolute Neutrophils 3.8 Absolute Lymphocytes 0.7 Absolute Monocytes 0.6 Absolute Eosinophils 0.1 Absolute Basophils 0.0 Sodium Potassium Chloride Carbon Dioxide Anion Gap BUN Creatinine Est GFR ( Amer) Est GFR (Non-Af Amer) Glucose Calcium Magnesium 06/24/17 13:09 Creatine Kinase 146 Impressions: Head CT 06/24/17 00:00 IMPRESSION: No acute findings. Encephalomalacia in the right frontal and left posterior temporal regions. Moderate small vessel chronic white matter disease. Renal Ultrasound 06/24/17 00:00 IMPRESSION: Post left nephrectomy. No right-sided hydronephrosis or hydroureter. Normal size right kidney with normal cortical thickness and echogenicity. Chest X-Ray 06/24/17 11:51 IMPRESSION: No acute findings. Assessment & Plan - Diagnosis (1) Anemia Qualifiers: Anemia type: iron deficiency Iron deficiency anemia type: chronic blood loss Qualified Code(s): D50.0 - Iron deficiency anemia secondary to blood loss (chronic) Is this a current diagnosis for this admission?: Yes Plan: All stable (2) Acute renal failure Qualifiers: Acute renal failure type: unspecified Qualified Code(s): N17.9 - Acute kidney failure, unspecified Is this a current diagnosis for this admission?: Yes Plan: All improving continues IV fluid (3) GI bleed Qualifiers: GI bleed type/associated pathology: unspecified gastrointestinal hemorrhage type Qualified Code(s): K92.2 - Gastrointestinal hemorrhage, unspecified Is this a current diagnosis for this admission?: Yes Plan: avm will hold xeralto now (4) Hypertension Qualifiers: Hypertension type: essential hypertension Qualified Code(s): I10 - Essential (primary) hypertension Is this a current diagnosis for this admission?: Yes Plan: We will currently stop the lisinopril and HCTZ and may be can add the calcium channel jaclyn (5) Chronic deep vein thrombosis (DVT) Qualifiers: DVT location: lower extremity Affected thrombotic vein of extremity: femoral Laterality: right Qualified Code(s): I82.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 Is this a current diagnosis for this admission?: Yes Plan: We currently hold the Xarelto patient is already have IVC filter placed consult the core blower for further evaluation (6) Pacemaker Is this a current diagnosis for this admission?: Yes Plan: Cardiogram is currently all stable (7) Type 2 diabetes mellitus Qualifiers: Diabetes mellitus complication status: with unspecified complications Is this a current diagnosis for this admission?: Yes Plan: We may consider to start the patient on the p.o. glipizide (8) Hypokalemia Is this a current diagnosis for this admission?: Yes Plan: Replace the potassium - Time Time Spent with patient: 15-24 minutes Medications reviewed and adjusted accordingly: Yes Anticipated discharge: Home Within: within 24 hours - Inpatient Certification Medical Necessity: Need Close Monitoring Due to Risk of Patient Decompensation, Need For IV Fluids Post Hospital Care: D/C Instructor Kindergarten Documentation - Plan Summary Plan Summary: d/w pt and family about all test result and plan
--- NOTE | 2017-06-27 07:53 | EKG REPORT ---
SEVERITY:- ABNORMAL ECG - ATRIAL-SENSED VENTRICULAR-PACED COMPLEXES : Confirmed by: Bam Salmeron MD 27-Jun-2017 07:52:46
[2017-06-27] MEDS: TAMSULOSIN HCL 0.4 MG CAP.SR.24H PO SCH (10:28)
[2017-06-27] MEDS: PANTOPRAZOLE SODIUM 40 MG VIAL IV SCH (10:28)
[2017-06-27] MEDS: AMLODIPINE BESYLATE 5 MG TABLET PO SCH (10:28)
[2017-06-27] MEDS: ACETAMINOPHEN 325 MG TABLET PO PRN ×2 (14:13→23:38)
[2017-06-27] MEDS ORDERED: CEFTRIAXONE 1 GM/D5W RTU 1 GM/50 ML RTUPB IV ONE (15:00)
[2017-06-27] MEDS: NORMAL SALINE 1000 ML 1,000 ML IV PRN (16:04)
[2017-06-27] MEDS: ATORVASTATIN CALCIUM 40 MG TABLET PO SCH (21:43)
--- NOTE | 2017-06-28 08:02 | PDOC PROGRESS REPORT ---
Subjective Progress Note for:: 06/28/17 Subjective:: No acute events overnight, patient apparently did walk down the [place] Physical Exam Vital Signs: Temp Pulse Resp BP Pulse Ox 97.7 F 71 19 110/57 L 98 06/28/17 03:35 06/28/17 03:35 06/28/17 03:35 06/28/17 03:35 06/28/17 03:35 Intake & Output 06/27/17 06/28/17 06/29/17 06:59 06:59 06:59 Intake Total 1682 2216 Output Total 1055 200 Balance 627 2015 Weight 86.4 kg 85.6 kg General appearance: PRESENT: no acute distress, well-developed, well-nourished Head exam: PRESENT: atraumatic, normocephalic Eye exam: PRESENT: conjunctiva pink, EOMI, PERRLA. ABSENT: scleral icterus Ear exam: PRESENT: normal external ear exam Mouth exam: PRESENT: moist, tongue midline Neck exam: ABSENT: carotid bruit, JVD, lymphadenopathy, thyromegaly Respiratory exam: PRESENT: clear to auscultation ana. ABSENT: rales, rhonchi, wheezes Cardiovascular exam: PRESENT: RRR. ABSENT: diastolic murmur, rubs, systolic murmur Pulses: PRESENT: normal dorsalis pedis pul Vascular exam: PRESENT: normal capillary refill GI/Abdominal exam: PRESENT: normal bowel sounds, soft. ABSENT: distended, guarding, mass, organolmegaly, rebound, tenderness Rectal exam: PRESENT: deferred Extremities exam: PRESENT: full ROM. ABSENT: calf tenderness, clubbing, pedal edema Neurological exam: PRESENT: alert, awake, oriented to person, oriented to place , oriented to time, oriented to situation, CN II-XII grossly intact. ABSENT: motor sensory deficit Psychiatric exam: PRESENT: appropriate affect, normal mood. ABSENT: homicidal ideation, suicidal ideation Skin exam: PRESENT: dry, intact, warm. ABSENT: cyanosis, rash Results Laboratory Results: 06/27/17 04:09 06/27/17 04:09 06/24/17 20:30 Clean Catch Midstream Urine Culture - Final Escherichia Coli 06/24/17 13:09 Creatine Kinase 146 Impressions: Head CT 06/24/17 00:00 IMPRESSION: No acute findings. Encephalomalacia in the right frontal and left posterior temporal regions. Moderate small vessel chronic white matter disease. Renal Ultrasound 06/24/17 00:00 IMPRESSION: Post left nephrectomy. No right-sided hydronephrosis or hydroureter. Normal size right kidney with normal cortical thickness and echogenicity. Chest X-Ray 06/24/17 11:51 IMPRESSION: No acute findings. Assessment & Plan - Diagnosis (1) Chronic deep vein thrombosis (DVT) Qualifiers: DVT location: lower extremity Affected thrombotic vein of extremity: femoral Laterality: right Qualified Code(s): I82.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 Is this a current diagnosis for this admission?: Yes Plan: As noted previously we will hold anticoagulation for about a week to 10 days post discharge, if patient leaves today they will see us next week. We will decide on anticoagulation then. 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
[2017-06-28 08:23] LABS: ANION GAP 8 (5-19); BLOOD UREA NITROGEN 21 mg/dL (7-20); CALCIUM 8.8 mg/dL (8.4-10.2); CARBON DIOXIDE 27 mmol/L (22-30); CHLORIDE 106 mmol/L (98-107); CREATININE RESULT 2.05 mg/dL (0.52-1.25); GLUCOSE 95 mg/dL (75-110); POTASSIUM 3.8 mmol/L (3.6-5.0); SODIUM 140.7 mmol/L (137-145)
[2017-06-28 09:10] LABS: ABSOLUTE EOSINOPHILS # (AUTO) 0.1 10^3/uL (0.0-0.6); ABSOLUTE LYMPHOCYTES (AUTO) 0.7 10^3/uL (0.5-4.7); ABSOLUTE MONOCYTES (AUTO) 0.6 10^3/uL (0.1-1.4); ABSOLUTE NEUT (AUTO) 3.4 10^3/uL (1.7-8.2); BASOPHILS % (AUTO) 0.4 % (0-2); EOSINOPHILS % (AUTO) 1.4 % (0-6); HEMATOCRIT 31.4 % (37.9-51.0); HEMOGLOBIN 10.5 g/dL (13.5-17.0); HGB HCT DIFFERENCE 0.1; LYMPHOCYTES % (AUTO) 14.7 % (13-45); MEAN CORPUSCULAR HEMOGLOBIN 32.8 pg (27.0-33.4); MEAN CORPUSCULAR HGB CONC 33.4 g/dL (32.0-36.0); MEAN CORPUSCULAR VOLUME 98 fl (80-97); MONOCYTES % (AUTO) 11.6 % (3-13); RED BLOOD COUNT 3.19 10^6/uL (4.35-5.55); RED CELL DISTRIBUTION WIDTH 20.8 % (11.5-14.0); SEGMENTED NEUTROPHILS % (AUTO) 71.9 % (42-78); WHITE BLOOD COUNT 4.8 10^3/uL (4.0-10.5)
[2017-06-28] MEDS ORDERED: CEFTRIAXONE 1 GM/D5W RTU 1 GM/50 ML RTUPB IV SCH ×2 (10:00)
[2017-06-28] MEDS: AMLODIPINE BESYLATE 5 MG TABLET PO SCH (10:05)
[2017-06-28] MEDS: TAMSULOSIN HCL 0.4 MG CAP.SR.24H PO SCH (10:05)
--- NOTE | 2017-06-28 12:35 | PDOC PROGRESS REPORT ---
Subjective Progress Note for:: 06/28/17 Subjective:: Patient is currently doing well. Patient's denied any chest pain denied any shortness of the breath Physical Exam Vital Signs: Temp Pulse Resp BP Pulse Ox 97.3 F 73 18 131/70 H 100 06/28/17 07:27 06/28/17 07:27 06/28/17 07:27 06/28/17 07:27 06/28/17 07:27 Intake & Output 06/27/17 06/28/17 06/29/17 06:59 06:59 06:59 Intake Total 1682 2216 Output Total 1055 200 Balance 627 2015 Weight 86.4 kg 85.6 kg General appearance: PRESENT: no acute distress, well-developed, well-nourished Head exam: PRESENT: atraumatic, normocephalic Eye exam: PRESENT: conjunctiva pink, EOMI, PERRLA. ABSENT: scleral icterus Ear exam: PRESENT: normal external ear exam Mouth exam: PRESENT: moist, tongue midline Neck exam: PRESENT: full ROM. ABSENT: carotid bruit, JVD, lymphadenopathy, thyromegaly Respiratory exam: PRESENT: clear to auscultation ana Cardiovascular exam: PRESENT: RRR. ABSENT: diastolic murmur, rubs, systolic murmur Pulses: PRESENT: normal dorsalis pedis pul, +2 pedal pulses bilateral Vascular exam: PRESENT: normal capillary refill GI/Abdominal exam: PRESENT: normal bowel sounds, soft. ABSENT: distended, guarding, mass, organolmegaly, rebound, tenderness Rectal exam: PRESENT: deferred Neurological exam: PRESENT: alert, awake, oriented to person, oriented to place , oriented to time, oriented to situation, CN II-XII grossly intact. ABSENT: motor sensory deficit Psychiatric exam: PRESENT: appropriate affect, normal mood. ABSENT: homicidal ideation, suicidal ideation Skin exam: PRESENT: dry, intact, warm. ABSENT: cyanosis, rash Results Laboratory Results: 06/28/17 07:39 06/28/17 07:39 06/28/17 06/28/17 07:39 07:39 WBC 4.8 RBC 3.19 L Hgb 10.5 L Hct 31.4 L MCV 98 H MCH 32.8 MCHC 33.4 RDW 20.8 H Plt Count 191 Seg Neutrophils % 71.9 Lymphocytes % 14.7 Monocytes % 11.6 Eosinophils % 1.4 Basophils % 0.4 Absolute Neutrophils 3.4 Absolute Lymphocytes 0.7 Absolute Monocytes 0.6 Absolute Eosinophils 0.1 Absolute Basophils 0.0 Sodium 140.7 Potassium 3.8 Chloride 106 Carbon Dioxide 27 Anion Gap 8 BUN 21 H Creatinine 2.05 H Est GFR ( Amer) 38 L Est GFR (Non-Af Amer) 31 L Glucose 95 Calcium 8.8 06/24/17 20:30 Clean Catch Midstream Urine Culture - Final Escherichia Coli 06/24/17 13:09 Creatine Kinase 146 Impressions: Head CT 06/24/17 00:00 IMPRESSION: No acute findings. Encephalomalacia in the right frontal and left posterior temporal regions. Moderate small vessel chronic white matter disease. Renal Ultrasound 06/24/17 00:00 IMPRESSION: Post left nephrectomy. No right-sided hydronephrosis or hydroureter. Normal size right kidney with normal cortical thickness and echogenicity. Chest X-Ray 06/24/17 11:51 IMPRESSION: No acute findings. Assessment & Plan - Diagnosis (1) Anemia Qualifiers: Anemia type: iron deficiency Iron deficiency anemia type: chronic blood loss Qualified Code(s): D50.0 - Iron deficiency anemia secondary to blood loss (chronic) Is this a current diagnosis for this admission?: Yes Plan: All stable (2) Acute renal failure Qualifiers: Acute renal failure type: unspecified Qualified Code(s): N17.9 - Acute kidney failure, unspecified Is this a current diagnosis for this admission?: Yes Plan: All improving continues IV fluid (3) GI bleed Qualifiers: GI bleed type/associated pathology: unspecified gastrointestinal hemorrhage type Qualified Code(s): K92.2 - Gastrointestinal hemorrhage, unspecified Is this a current diagnosis for this admission?: Yes Plan: avm will hold xeralto now (4) Hypertension Qualifiers: Hypertension type: essential hypertension Qualified Code(s): I10 - Essential (primary) hypertension Is this a current diagnosis for this admission?: Yes Plan: We will currently stop the lisinopril and HCTZ and may be can add the calcium channel jaclyn (5) Chronic deep vein thrombosis (DVT) Qualifiers: DVT location: lower extremity Affected thrombotic vein of extremity: femoral Laterality: right Qualified Code(s): I82.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 Is this a current diagnosis for this admission?: Yes Plan: We currently hold the Xarelto patient is already have IVC filter placed consult the practical nursing teacher for further evaluation (6) Pacemaker Is this a current diagnosis for this admission?: Yes Plan: Cardiogram is currently all stable (7) Type 2 diabetes mellitus Qualifiers: Diabetes mellitus complication status: with unspecified complications Is this a current diagnosis for this admission?: Yes Plan: We may consider to start the patient on the p.o. glipizide (8) Hypokalemia Is this a current diagnosis for this admission?: Yes - Time Time Spent with patient: 15-24 minutes Medications reviewed and adjusted accordingly: Yes Anticipated discharge: Home Within: Other - Inpatient Certification Medical Necessity: Need Close Monitoring Due to Risk of Patient Decompensation Post Hospital Care: D/C [employer] Documentation - Plan Summary Plan Summary: Continues to current medications discussed with the patient and the daughter in the room and hopefully patient's discharge within the next 24 hours
--- NOTE | 2017-06-28 20:21 | PDOC PROGRESS REPORT ---
Subjective Progress Note for:: 06/28/17 Subjective:: Patient was seen sitting in his chair today. He has no concerns and is ready to go home. He has been producing a good amount of urine over the weekend. Creatinine looks to be improving into the low 2s. Physical Exam Vital Signs: Temp Pulse Resp BP Pulse Ox 97.8 F 87 18 111/67 100 06/28/17 15:35 06/28/17 15:35 06/28/17 15:35 06/28/17 15:35 06/28/17 15:35 Intake & Output 06/27/17 06/28/17 06/29/17 06:59 06:59 06:59 Intake Total 1682 2216 1134 Output Total 1055 200 0 Balance 627 2016 1134 Weight 86.4 kg 85.6 kg General appearance: PRESENT: no acute distress, well-developed, well-nourished Head exam: PRESENT: atraumatic, normocephalic Mouth exam: PRESENT: moist, tongue midline Neck exam: PRESENT: full ROM. ABSENT: JVD Respiratory exam: PRESENT: clear to auscultation ana. ABSENT: accessory muscle use, tachypnea Cardiovascular exam: PRESENT: RRR, +S1, +S2 GI/Abdominal exam: PRESENT: normal bowel sounds, soft. ABSENT: ascites, diminished bowel sounds, distended, firm, guarding, hyperactive bowel sounds, hypoactive bowel sounds, tenderness Extremities exam: PRESENT: full ROM. ABSENT: joint swelling, pedal edema Musculoskeletal exam: PRESENT: normal inspection. ABSENT: deformity Neurological exam: PRESENT: alert, awake, oriented to person, oriented to place , oriented to time, oriented to situation Psychiatric exam: PRESENT: appropriate affect, normal mood Skin exam: PRESENT: dry, intact, warm Results Laboratory Results: 06/28/17 07:39 06/28/17 07:39 06/28/17 06/28/17 07:39 07:39 WBC 4.8 RBC 3.19 L Hgb 10.5 L Hct 31.4 L MCV 98 H MCH 32.8 MCHC 33.4 RDW 20.8 H Plt Count 191 Seg Neutrophils % 71.9 Lymphocytes % 14.7 Monocytes % 11.6 Eosinophils % 1.4 Basophils % 0.4 Absolute Neutrophils 3.4 Absolute Lymphocytes 0.7 Absolute Monocytes 0.6 Absolute Eosinophils 0.1 Absolute Basophils 0.0 Sodium 140.7 Potassium 3.8 Chloride 106 Carbon Dioxide 27 Anion Gap 8 BUN 21 H Creatinine 2.05 H Est GFR ( Amer) 38 L Est GFR (Non-Af Amer) 31 L Glucose 95 Calcium 8.8 06/24/17 13:09 Creatine Kinase 146 Impressions: Head CT 06/24/17 00:00 IMPRESSION: No acute findings. Encephalomalacia in the right frontal and left posterior temporal regions. Moderate small vessel chronic white matter disease. Renal Ultrasound 06/24/17 00:00 IMPRESSION: Post left nephrectomy. No right-sided hydronephrosis or hydroureter. Normal size right kidney with normal cortical thickness and echogenicity. Chest X-Ray 06/24/17 11:51 IMPRESSION: No acute findings. Assessment & Plan - Diagnosis (1) MADIE (acute kidney injury) Plan: looks to be resolving will follow up as outpatient with Dr. Keith or me. (2) Hypokalemia Plan: stable (3) Anemia Qualifiers: Anemia type: iron deficiency Iron deficiency anemia type: chronic blood loss Qualified Code(s): D50.0 - Iron deficiency anemia secondary to blood loss (chronic) Is this a current diagnosis for this admission?: Yes Plan: stable (4) Hypertension Qualifiers: Hypertension type: essential hypertension Qualified Code(s): I10 - Essential (primary) hypertension Is this a current diagnosis for this admission?: Yes Plan: well controlled (5) Hypomagnesemia Plan: will follow up with outpatient labs - Notes Notes: At this time nephrology will be signing off. Please feel free to consult back if needed.
[2017-06-28] MEDS: ATORVASTATIN CALCIUM 40 MG TABLET PO SCH (21:53)
[2017-06-28] MEDS: ACETAMINOPHEN 325 MG TABLET PO PRN (21:53)
[2017-06-29 08:02] LABS: ANION GAP 8 (5-19); BLOOD UREA NITROGEN 21 mg/dL (7-20); CALCIUM 8.8 mg/dL (8.4-10.2); CARBON DIOXIDE 26 mmol/L (22-30); CHLORIDE 105 mmol/L (98-107); CREATININE RESULT 1.76 mg/dL (0.52-1.25); GLUCOSE 89 mg/dL (75-110); POTASSIUM 3.6 mmol/L (3.6-5.0); SODIUM 138.6 mmol/L (137-145)
--- NOTE | 2017-06-29 08:05 | PDOC PROGRESS REPORT ---
Subjective Progress Note for:: 06/29/17 Subjective:: No acute events overnight Physical Exam Vital Signs: Temp Pulse Resp BP Pulse Ox 98.4 F 70 16 141/73 H 100 06/29/17 07:21 06/29/17 07:21 06/29/17 07:21 06/29/17 07:21 06/29/17 07:21 Intake & Output 06/28/17 06/29/17 06/30/17 06:59 06:59 06:59 Intake Total 2216 2491 Output Total 200 550 Balance 2015 1940 Weight 85.6 kg 85.8 kg General appearance: PRESENT: no acute distress, well-developed, well-nourished Head exam: PRESENT: atraumatic, normocephalic Eye exam: PRESENT: conjunctiva pink, EOMI, PERRLA. ABSENT: scleral icterus Ear exam: PRESENT: normal external ear exam Mouth exam: PRESENT: moist, tongue midline Neck exam: ABSENT: carotid bruit, JVD, lymphadenopathy, thyromegaly Respiratory exam: PRESENT: clear to auscultation ana. ABSENT: rales, rhonchi, wheezes Cardiovascular exam: PRESENT: RRR. ABSENT: diastolic murmur, rubs, systolic murmur Pulses: PRESENT: normal dorsalis pedis pul Vascular exam: PRESENT: normal capillary refill GI/Abdominal exam: PRESENT: normal bowel sounds, soft. ABSENT: distended, guarding, mass, organolmegaly, rebound, tenderness Rectal exam: PRESENT: deferred Extremities exam: PRESENT: full ROM. ABSENT: calf tenderness, clubbing, pedal edema Neurological exam: PRESENT: alert, awake, oriented to person, oriented to place , oriented to time, oriented to situation, CN II-XII grossly intact. ABSENT: motor sensory deficit Psychiatric exam: PRESENT: appropriate affect, normal mood. ABSENT: homicidal ideation, suicidal ideation Skin exam: PRESENT: dry, intact, warm. ABSENT: cyanosis, rash Results Laboratory Results: 06/28/17 07:39 06/28/17 06/28/17 07:39 07:39 WBC 4.8 RBC 3.19 L Hgb 10.5 L Hct 31.4 L MCV 98 H MCH 32.8 MCHC 33.4 RDW 20.8 H Plt Count 191 Seg Neutrophils % 71.9 Lymphocytes % 14.7 Monocytes % 11.6 Eosinophils % 1.4 Basophils % 0.4 Absolute Neutrophils 3.4 Absolute Lymphocytes 0.7 Absolute Monocytes 0.6 Absolute Eosinophils 0.1 Absolute Basophils 0.0 Sodium 140.7 Potassium 3.8 Chloride 106 Carbon Dioxide 27 Anion Gap 8 BUN 21 H Creatinine 2.05 H Est GFR ( Amer) 38 L Est GFR (Non-Af Amer) 31 L Glucose 95 Calcium 8.8 06/24/17 13:09 Creatine Kinase 146 Impressions: Head CT 06/24/17 00:00 IMPRESSION: No acute findings. Encephalomalacia in the right frontal and left posterior temporal regions. Moderate small vessel chronic white matter disease. Renal Ultrasound 06/24/17 00:00 IMPRESSION: Post left nephrectomy. No right-sided hydronephrosis or hydroureter. Normal size right kidney with normal cortical thickness and echogenicity. Chest X-Ray 06/24/17 11:51 IMPRESSION: No acute findings. Assessment & Plan - Diagnosis (1) Chronic deep vein thrombosis (DVT) Qualifiers: DVT location: lower extremity Affected thrombotic vein of extremity: femoral Laterality: right Qualified Code(s): I82.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 Is this a current diagnosis for this admission?: Yes Plan: Hold anticoag for 1-2 weeks post d/c and f/u in office to decide if safe to restart. (2) Anemia Qualifiers: Anemia type: iron deficiency Iron deficiency anemia type: chronic blood loss Qualified Code(s): D50.0 - Iron deficiency anemia secondary to blood loss (chronic) Is this a current diagnosis for this admission?: Yes Plan: 2nd blood loss and ACD, now stable, cont to monitor
[2017-06-29 08:07] LABS: MAGNESIUM 1.2 mg/dL (1.6-2.3)
[2017-06-29] MEDS: MAGNESIUM SULFATE/D5W 1 GM/100 ML RTUPB IV SCH ×2 (08:47→09:25)
[2017-06-29] MEDS: AMLODIPINE BESYLATE 5 MG TABLET PO SCH (09:24)
[2017-06-29] MEDS: TAMSULOSIN HCL 0.4 MG CAP.SR.24H PO SCH (09:25)
[2017-06-29 12:47] VITALS: BP 115/59
--- NOTE | 2017-06-29 13:08 | PDOC DISCHARGE SUMMARY ---
General - Admit/Disc Date/PCP Admission Date/Primary Care Provider: 06/24/17 11:18 YUMIKO MATA Discharge Date: 06/29/17 - Discharge Diagnosis (1) Anemia Is this a current diagnosis for this admission?: Yes Summary: Due to the acute GI blood loss with the chronic disease with the found the AVM and a cauterized (2) Acute renal failure Is this a current diagnosis for this admission?: Yes Summary: Currently all resolving (3) GI bleed Is this a current diagnosis for this admission?: Yes Summary: Due to AVM (4) Hypertension Is this a current diagnosis for this admission?: Yes Summary: Currently continues to Norvasc (5) Chronic deep vein thrombosis (DVT) Is this a current diagnosis for this admission?: Yes Summary: We currently hold the Xarelto due to the current acute GI bleed and discussed with the Dr. Espinosa he will start the patient on the Eliquis after the week if remains stableDiscussed with the patient's family understandPatient already have IVC filter placed (6) Pacemaker Is this a current diagnosis for this admission?: Yes Summary: Patient's currently see her Dr. Jimenez is outpatients in the recent echocardiogram in the hospital stable (7) Type 2 diabetes mellitus Is this a current diagnosis for this admission?: Yes Summary: We will DC the metformin due to the acute renal failure and patient's blood sugar remained stable will continues to monitor discussed with the daughter and follow outpatient consider start the Januvia if he remained go up (8) Hypokalemia Is this a current diagnosis for this admission?: Yes Summary: All resolved - Additional Information Resuscitation Status: Full Code Discharge Diet: Diabetic Discharge Activity: Activity As Tolerated Home Medications: Amlodipine Besylate [Norvasc 5 mg Tablet] 5 mg PO DAILY 06/24/17 Calcium Carbonate/Vitamin D3 [Calcium 600 + Vit D Tablet] 1 tab PO Q12 06/24/17 Cyanocobalamin (Vitamin B-12) [Vitamin B-12 250 mcg Tablet] 250 mcg PO DAILY Rosuvastatin Calcium [Crestor 20 mg Tablet] 20 mg PO QHS 06/24/17 Tamsulosin HCl [Flomax 0.4 mg Cap.sr] 0.4 mg PO DAILY 06/24/17 Ciprofloxacin HCl [Cipro 500 mg Tablet] 500 mg PO BID #10 tablet 06/29/17 History of Present Illness History of Present Illness: PRASANNA NAVARRETE is a 87 year old male This is a 87-year-old malePresent in the office yesterdayWith the past medical history of theHypertension hyperlipidemia chronic anemia of chronic Xarelto for the chronic DVTCurrently see a Dr. Fontanez as outpatientAnd the patient's recently have a endoscopy and colonoscopy done by Dr. brady all stable Patient at this point the blood work was drawn and patient hemoglobin was 8And patient's creatinine was 3.75 Patient's last creatinine was 1.4 on the last month Patients denied any chest pain denied any shortness of the breath and no abdominal pain Patient see her Dr. Jimenez as outpatient for a pacemaker and coronary disease And have a sick sinus syndromes status post pacemaker and currently all stable At this point with the multiple comorbidity with possible underlying GI bleed and acute renal failureNeed to further evaluate and admit in the hospital and family all agree Hospital Course Hospital Course: This is a 87-year-old male's was admitted because of the anemia and possible acute GI bleed and patient underwent for the endoscopy by Dr. Morales and the patient's have a cauterize the AVMAnd patients was giving her 2 units of the blood's Patient also found acute renal failure and hypokalemia and hypomagnesemia and Dr. Keith was consulted and given IV fluid and patient's lisinopril and the Metformin was DC'd Patient's back [facility] patient seen by Dr. Espinosa because of the chronic DVT on Xarelto and currently hold because of the acute GI bleedPatient is a high risk for the GI bleed due to the AVM and he will evaluate the patient in the next week and consider to start the Eliquis 2.5 mg p.o. twice a day Discussed with the daughter very extensively regarding the patient's concerns AVM in the GI bleed and possible ongoing chronic DVT but right now patients cannot take an anticoagulations due to the GI bleed Patient have echocardiogram done in the hospital was all stable Physical Exam Vital Signs: Temp Pulse Resp BP Pulse Ox 98.5 F 71 18 115/59 L 100 06/29/17 11:20 06/29/17 11:20 06/29/17 11:20 06/29/17 11:20 06/29/17 11:20 Intake & Output 06/28/17 06/29/17 06/30/17 06:59 06:59 06:59 Intake Total 2470 9481 237 Output Total 200 550 Balance 2015 1940 237 Weight 85.6 kg 85.8 kg General appearance: PRESENT: no acute distress, well-developed, well-nourished Head exam: PRESENT: atraumatic, normocephalic Eye exam: PRESENT: conjunctiva pink, EOMI, PERRLA. ABSENT: scleral icterus Ear exam: PRESENT: normal external ear exam Mouth exam: PRESENT: moist, tongue midline Neck exam: PRESENT: full ROM. ABSENT: carotid bruit, JVD, lymphadenopathy, thyromegaly Respiratory exam: PRESENT: clear to auscultation ana Cardiovascular exam: PRESENT: RRR. ABSENT: diastolic murmur, rubs, systolic murmur Pulses: PRESENT: normal dorsalis pedis pul, +2 pedal pulses bilateral Vascular exam: PRESENT: normal capillary refill GI/Abdominal exam: PRESENT: normal bowel sounds, soft. ABSENT: distended, guarding, mass, organolmegaly, rebound, tenderness Rectal exam: PRESENT: deferred Neurological exam: PRESENT: alert, awake, oriented to person, oriented to place , oriented to time, oriented to situation. ABSENT: motor sensory deficit Psychiatric exam: PRESENT: appropriate affect, normal mood. ABSENT: homicidal ideation, suicidal ideation Skin exam: PRESENT: dry, intact, warm. ABSENT: cyanosis, rash Results Laboratory Results: 06/28/17 07:39 06/29/17 07:32 06/29/17 07:32 Sodium 138.6 Potassium 3.6 Chloride 105 Carbon Dioxide 26 Anion Gap 8 BUN 21 H Creatinine 1.76 H Est GFR ( Amer) 45 L Est GFR (Non-Af Amer) 37 L Glucose 89 Calcium 8.8 Magnesium 1.2 L* 06/24/17 13:09 Creatine Kinase 146 Impressions: Head CT 06/24/17 00:00 IMPRESSION: No acute findings. Encephalomalacia in the right frontal and left posterior temporal regions. Moderate small vessel chronic white matter disease. Renal Ultrasound 06/24/17 00:00 IMPRESSION: Post left nephrectomy. No right-sided hydronephrosis or hydroureter. Normal size right kidney with normal cortical thickness and echogenicity. Chest X-Ray 06/24/17 11:51 IMPRESSION: No acute findings. Plan Time Spent: Greater than 30 Minutes - Patient's discharge home with the stable conditions patient's walk with the physical therapy and patient's currently has stop the lisinopril and Metformin and the Xarelto Follow in office in 1 week repeat the CBC and Chem-7 Also p.o. supplement with the magnesium Recheck the magnesium in 1 week
== END 2017-06-29 13:00 | disposition home or self-care (01) | DRG 378 ==
LOC: 3N 11:18
PROVIDERS: ADMIT Family Medicine; ATTEND Family Medicine
PROC: 30233N1 Transfusion of Nonautologous Red Blood Cells into Peripheral Vein, Percutaneous Approach (ICD-10-PCS; 2017-06-24)
PROC: 0D568ZZ Destruction of Stomach, Via Natural or Artificial Opening Endoscopic (ICD-10-PCS; principal; 2017-06-25 11:00)
DX: K31.811 Angiodysplasia of stomach and duodenum with bleeding (principal); D62 Acute posthemorrhagic anemia; N17.9 Acute kidney failure, unspecified; I82.511 Chronic embolism and thrombosis of right femoral vein; K29.70 Gastritis, unspecified, without bleeding; E87.6 Hypokalemia; E83.42 Hypomagnesemia; I10 Essential (primary) hypertension; E11.9 Type 2 diabetes mellitus without complications; E78.5 Hyperlipidemia, unspecified; N40.0 Benign prostatic hyperplasia without lower urinary tract symptoms; M19.90 Unspecified osteoarthritis, unspecified site; Z79.84 Long term (current) use of oral hypoglycemic drugs; Z79.02 Long term (current) use of antithrombotics/antiplatelets; Z79.899 Other long term (current) drug therapy; Z95.0 Presence of cardiac pacemaker
CPT/HCPCS: 36415; 36430; 43255; 70450; 71010; 76770; 80048; 80053; 81001; 82550; 82728; 82962; 83540; 83550; 83735; 84132; 85025; 86850; 86900; 86901; 86920; 87086; 87088; 87186; 93005; 93010; 93306; J0171; J0696; J1200; J1610; J1815; J1940; J2250; J2310; J2405; J3010; J3475; J3480; J3490; J7030; P9016; S0164

== ENCOUNTER → 2017-07-01 | Outpatient (CLI) | payer MEDICARE ==
--- NOTE | 2017-07-01 10:15 | RADIOLOGY REPORT (SQ) ---
EXAM DESCRIPTION: HIPS BILATERAL COMPLETED DATE/TIME: 07/01/2017 9:56 am REASON FOR STUDY: PAIN IN RIGHT HIP M25.551 PAIN IN RIGHT HIP COMPARISON: CT abdomen and pelvis without contrast 12/16/2012 KUB 08/20/2014, 07/24/2015, 06/29/2016 NUMBER OF VIEWS: Two views TECHNIQUE: AP pelvis and additional frog-leg view of both hips. LIMITATIONS: None. 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 This is similar co mpared to the CT exam from 2012. HIPS: Very mild bilateral hip joint space narrowing. No bulky bony spurring. No altered femoral hea d density worrisome for avascular necrosis. No acute fracture. PELVIS AND SACRUM: No acute fracture or dislocation. Ankylosis across the right SI joint. PUBIS AND ISCHIUM: No acute fracture. LOWER LUMBAR SPINE: Advanced degenerative disc changes at L4-5 and L5-S1. SOFT TISSUES: Prostate calcifications. Left lower quadrant surgical clips. OTHER: No other significant finding. IMPRESSION: No acute fracture or malalignment. Minimal bilateral hip joint space narrowing without bulky bony spurring. 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
== END ==
LOC: OD 09:26
PROVIDERS: ATTEND Family Medicine
DX: M25.551 Pain in right hip (principal)
CPT/HCPCS: 73522

== ENCOUNTER 2017-08-12 22:36 | Emergency (ER) | payer MEDICARE, MEDICAID ==
[2017-08-12] MEDS ORDERED: ACETAMINOPHEN 325 MG TABLET PO ONE (23:00)
[2017-08-12] MEDS ORDERED: AZITHROMYCIN INJ 500 MG VIAL IV ONE (23:08)
[2017-08-12] MEDS ORDERED: CEFTRIAXONE 1 GM/D5W RTU 1 GM/50 ML RTUPB IV ONE (23:08)
[2017-08-12] MEDS ORDERED: IPRATROPIUM/ALBUTEROL 0.5-2.5 MG/3 ML AMPUL NEB ONE (23:08)
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
[2017-08-12] MEDS ORDERED: ALBUTEROL SULFATE 0.083% NEB 2.5 MG/3 ML AMPUL NEB SCH (23:24)
[2017-08-13 00:08] LABS: HEMATOCRIT 28.3 % (37.9-51.0); HEMOGLOBIN 9.4 g/dL (13.5-17.0); HGB HCT DIFFERENCE -0.1; MEAN CORPUSCULAR HEMOGLOBIN 32.1 pg (27.0-33.4); MEAN CORPUSCULAR HGB CONC 33.4 g/dL (32.0-36.0); MEAN CORPUSCULAR VOLUME 96 fl (80-97); RED BLOOD COUNT 2.94 10^6/uL (4.35-5.55); RED CELL DISTRIBUTION WIDTH 16.7 % (11.5-14.0); WHITE BLOOD COUNT 3.9 10^3/uL (4.0-10.5)
[2017-08-13 00:14] LABS: PROTHROMBIN TIME 18.9 SEC (11.4-15.4)
[2017-08-13 00:18] LABS: VENOUS BLOOD HCO3 28.7 mmol/L (20-32); VENOUS BLOOD PCO2 43.9 mmHg (35-63); VENOUS BLOOD PH 7.43 (7.30-7.42)
[2017-08-13 00:36] LABS: BAND NEUTROPHILS % (MANUAL) 2 % (3-5); BASOPHILS % (MANUAL) 0 % (0-2); EOSINOPHILS % (MANUAL) 0 % (0-6); LYMPHOCYTES % (MANUAL) 15 % (13-45); TOTAL CELLS COUNTED 100
[2017-08-13 00:37] LABS: ANISOCYTOSIS 1+; TOXIC GRANULATION SLIGHT; TOXIC VACUOLATION PRESENT
[2017-08-13 00:43] LABS: CREATINE KINASE MB 4.18 ng/mL (<4.55)
[2017-08-13 00:47] LABS: ALANINE AMINOTRANSFERASE 22 U/L (21-72); ALBUMIN 3.8 g/dL (3.5-5.0); ALKALINE PHOSPHATASE 79 U/L (38-126); ANION GAP 9 (5-19); ASPARTATE AMINO TRANSFERASE 32 U/L (17-59); BILIRUBIN,DIRECT 0.6 mg/dL (0.0-0.4); BILIRUBIN,TOTAL 0.9 mg/dL (0.2-1.3); BLOOD UREA NITROGEN 28 mg/dL (7-20); CALCIUM 9.4 mg/dL (8.4-10.2); CARBON DIOXIDE 26 mmol/L (22-30); CHLORIDE 103 mmol/L (98-107); CREATINE KINASE 285 U/L (55-170); CREATININE RESULT 1.72 mg/dL (0.52-1.25); GLUCOSE 139 mg/dL (75-110); POTASSIUM 3.9 mmol/L (3.6-5.0); SODIUM 138.3 mmol/L (137-145); TOTAL PROTEIN 7.6 g/dL (6.3-8.2)
[2017-08-13 00:58] LABS: TROPONIN I 0.461 ng/mL
[2017-08-13] MEDS ORDERED: ASPIRIN 81 MG TABLET, CHEWABLE PO ONE (01:16)
--- NOTE | 2017-08-13 03:17 | RADIOLOGY REPORT (SQ) ---
EXAM: CT ANGIOGRAM OF THE CHEST USING INTRAVENOUS ADMINISTRATION OF NONIONIC IODINATED CONTRAST MATERIAL. CLINICAL INDICATION: Evidence of breath. COMPARISON: None. TECHNIQUE: Using helical technique, thin section axial images were performed through the chest after the uncomplicated intravenous administration of 100 mL Isovue-370. Axially acquired data was then transferred to a dedicated CT workstation to facilitate parasagittal, coronal and volumetric 3-D reconstructions. Ply[employer] Layup Line Core Feeder volumetric 3-D reconstructions for this examination were permanently stored on the PACS system. FINDINGS: Moderate atherosclerotic calcification of thoracic aorta without aneurysm or dissection. Greatest diameter of the ascending thoracic aorta measures 4.0 cm. Great vessels of the chest appear otherwise normal. No pulmonary embolism. Dependent bibasilar consolidations. Suspect pulmonary edema. No associated pulmonary cavitation or centrally obstructing mass lesion. No suspicious hilar, mediastinal or axillary lymphadenopathy. Indwelling venous port tip is in the superior vena cava. 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 Multilevel degenerative fusion throughout the thoracic spine. Suspect diffuse etiopathic skeletal hyperostosis (DISH). No pneumothorax. IMPRESSION: 1. No pulmonary embolism. 2. Panchamber cardiac enlargement. Bibasilar dependent consolidations. Suspect pulmonary edema. 3. 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 4. 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 Remotely healed distal left clavicle fracture. 5. Greatest diameter of the ascending thoracic aorta is at the upper limits of normal measuring 4 cm.
[2017-08-13 04:30] LABS: PROTHROMBIN TIME 19.7 SEC (11.4-15.4)
[2017-08-13] MEDS ORDERED: NORMAL SALINE 1000 ML 500 ML IV PRN (04:42)
[2017-08-13 08:27] VITALS: BP 106/59
--- NOTE | 2017-08-13 11:13 | EKG REPORT ---
SEVERITY:- ABNORMAL ECG - A-V DUAL-PACED RHYTHM WITH SOME INHIBITION : Confirmed by: Janie Nuñez MD 13-Aug-2017 11:13:03
--- NOTE | 2017-08-13 11:14 | EKG REPORT ---
SEVERITY:- ABNORMAL ECG - COMPLETE AV BLOCK WITH WIDE QRS COMPLEX : Confirmed by: Janie Nuñez MD 13-Aug-2017 11:13:44
== END 2017-08-13 08:29 | disposition short-term general hospital (02) ==
LOC: ER 22:36
DX: I21.4 Non-ST elevation (NSTEMI) myocardial infarction (principal); J18.1 Lobar pneumonia, unspecified organism; J81.0 Acute pulmonary edema; E78.00 Pure hypercholesterolemia, unspecified; I10 Essential (primary) hypertension; E11.9 Type 2 diabetes mellitus without complications; Z86.73 Personal history of transient ischemic attack (TIA), and cerebral infarction without residual deficits; Z95.0 Presence of cardiac pacemaker; Z79.02 Long term (current) use of antithrombotics/antiplatelets; Z86.718 Personal history of other venous thrombosis and embolism
CPT/HCPCS: 93005 ×2; 99291; 36415; 87040; 82553; 82550; 85025; 85610; 85730; 80053; 84484; 82803; 83605; 83880; 71275; 93010 ×2; A9270 ×4; J0456; J0696; J7620

== ENCOUNTER → 2017-08-12 | Outpatient (CLI) | payer MEDICARE ==
[2017-08-12 17:22] LABS: ABSOLUTE LYMPHOCYTES (AUTO) 0.5 10^3/uL (0.5-4.7); ABSOLUTE MONOCYTES (AUTO) 0.5 10^3/uL (0.1-1.4); ABSOLUTE NEUT (AUTO) 3.9 10^3/uL (1.7-8.2); BASOPHILS % (AUTO) 0.2 % (0-2); EOSINOPHILS % (AUTO) 0.2 % (0-6); HEMATOCRIT 28.4 % (37.9-51.0); HEMOGLOBIN 9.6 g/dL (13.5-17.0); HGB HCT DIFFERENCE 0.4; LYMPHOCYTES % (AUTO) 10.4 % (13-45); MEAN CORPUSCULAR HGB CONC 33.6 g/dL (32.0-36.0); MEAN CORPUSCULAR VOLUME 95 fl (80-97); MONOCYTES % (AUTO) 10.7 % (3-13); RED BLOOD COUNT 2.98 10^6/uL (4.35-5.55); RED CELL DISTRIBUTION WIDTH 16.6 % (11.5-14.0); SEGMENTED NEUTROPHILS % (AUTO) 78.5 % (42-78)
--- NOTE | 2017-08-12 17:28 | RADIOLOGY REPORT (SQ) ---
EXAM DESCRIPTION: CHEST PA/LATERAL COMPLETED DATE/TIME: 08/12/2017 5:16 pm REASON FOR STUDY: FEVER, UNSPECIFIED COMPARISON: 06/24/2017 EXAM PARAMETERS: NUMBER OF VIEWS: two views TECHNIQUE: Digital Frontal and Lateral radiographic views of the chest acquired. RADIATION DOSE: NA LIMITATIONS: none FINDINGS: LUNGS AND PLEURA: Patchy airspace disease in the right lower lobe. No pneumothorax. No pl eural effusion. MEDIASTINUM AND HILAR STRUCTURES: Stable. HEART AND VASCULAR STRUCTURES: Stable. BONES: No acute findings. HARDWARE: Stable cardiac defibrillator. OTHER: No other significant finding. IMPRESSION: Patchy airspace disease in the right lower lobe. TECHNICAL DOCUMENTATION: JOB ID: [id number] [employer]- All Rights Reserved
[2017-08-12 17:49] LABS: ANION GAP 11 (5-19); BLOOD UREA NITROGEN 27 mg/dL (7-20); CALCIUM 9.4 mg/dL (8.4-10.2); CARBON DIOXIDE 24 mmol/L (22-30); CHLORIDE 101 mmol/L (98-107); CREATININE RESULT 1.54 mg/dL (0.52-1.25); GLUCOSE 121 mg/dL (75-110); POTASSIUM 3.9 mmol/L (3.6-5.0)
== END ==
LOC: OD 16:18
PROVIDERS: ATTEND Family Medicine
DX: R50.9 Fever, unspecified (principal); R05 Cough
CPT/HCPCS: 36415; 71020; 80048; 85025; 87040; 87086; 87088; 87186

== ENCOUNTER → 2018-05-25 | Outpatient (CLI) | payer MEDICAID, MEDICARE ==
--- NOTE | 2018-05-25 14:58 | RADIOLOGY REPORT (SQ) ---
EXAM DESCRIPTION: U/S RETROPERITON LTD COMPLETED DATE/TIME: 05/25/2018 2:33 pm REASON FOR STUDY: CHRONIC KIDNEY DISEASE, STAGE 3 (MODERATE) N18.3 CHRONIC KIDNEY DISEASE, STAGE 3 (MODERATE) COMPARISON: 06/24/2017. TECHNIQUE: Dynamic and static grayscale images acquired of the kidneys and bladder and recorded on P ACS. Additional selected color Doppler and spectral images recorded. LIMITATIONS: None. FINDINGS: RIGHT KIDNEY: Normal size. Normal echogenicity. No solid or suspicious masses. No h ydronephrosis. No calcifications. LEFT KIDNEY: Absent. BLADDER: No masses. OTHER FINDINGS: No other significant finding. IMPRESSION: ABSENT LEFT KIDNEY. UNREMARKABLE RIGHT RENAL ULTRASOUND AND BLADDER ULTRASOUND. TECHNICAL DOCUMENTATION: JOB ID: [id number] [employer]- All Rights Reserved Reading location - IP/workstation name: [email or web address]
== END ==
LOC: RAD 13:58
PROVIDERS: ATTEND Family Medicine
DX: R94.5 Abnormal results of liver function studies (principal); N18.3 Chronic kidney disease, stage 3 (moderate); Z90.5 Acquired absence of kidney
CPT/HCPCS: 76775

== ENCOUNTER → 2018-07-18 | Outpatient (CLI) | payer MEDICARE, MEDICAID ==
[2018-07-18 10:51] LABS: HEMOGLOBIN 11.2 g/dL (13.5-17.0); MEAN CORPUSCULAR HEMOGLOBIN 29.8 pg (27.0-33.4); MEAN CORPUSCULAR HGB CONC 32.9 g/dL (32.0-36.0); MEAN CORPUSCULAR VOLUME 91 fl (80-97); PLATELET COUNT 164 10^3/uL (150-450); RED BLOOD COUNT 3.74 10^6/uL (4.35-5.55); WHITE BLOOD COUNT 3.3 10^3/uL (4.0-10.5)
[2018-07-18 10:59] LABS: APPEARANCE,URINE CLOUDY; BILIRUBIN,URINE NEGATIVE (NEGATIVE); COLOR,URINE YELLOW; GLUCOSE, URINE NEGATIVE (NEGATIVE); KETONES,URINE NEGATIVE (NEGATIVE); LEUKOCYTE ESTERASE,URINE LARGE (NEGATIVE); NITRITE,URINE NEGATIVE (NEGATIVE); PROTEIN,URINE 30 mg/dL (NEGATIVE); URINE SPECIFIC GRAVITY 1.019; UROBILINOGEN,URINE NEGATIVE mg/dL (<2.0)
[2018-07-18 11:16] LABS: ANION GAP 9 (5-19); BLOOD UREA NITROGEN 32 mg/dL (7-20); CALCIUM 9.4 mg/dL (8.4-10.2); CARBON DIOXIDE 28 mmol/L (22-30); CHLORIDE 103 mmol/L (98-107); GLUCOSE 129 mg/dL (75-110); POTASSIUM 4.8 mmol/L (3.6-5.0)
== END ==
LOC: OD 10:13
PROVIDERS: ATTEND Family Medicine
DX: I12.9 Hypertensive chronic kidney disease with stage 1 through stage 4 chronic kidney disease, or unspecified chronic kidney disease (principal); E11.22 Type 2 diabetes mellitus with diabetic chronic kidney disease; N18.3 Chronic kidney disease, stage 3 (moderate)
CPT/HCPCS: 36415; 80048; 81001; 85027

== ENCOUNTER → 2018-09-07 | Outpatient (CLI) | payer MEDICARE, MEDICAID ==
[2018-09-07 11:52] LABS: HEMATOCRIT 33.7 % (37.9-51.0); HEMOGLOBIN 11.1 g/dL (13.5-17.0); MEAN CORPUSCULAR HGB CONC 32.9 g/dL (32.0-36.0); MEAN CORPUSCULAR VOLUME 91 fl (80-97); PLATELET COUNT 159 10^3/uL (150-450); RED CELL DISTRIBUTION WIDTH 17.7 % (11.5-14.0); WHITE BLOOD COUNT 3.8 10^3/uL (4.0-10.5)
[2018-09-07 11:56] LABS: APPEARANCE,URINE SLIGHTLY-CLOUDY; BILIRUBIN,URINE NEGATIVE (NEGATIVE); COLOR,URINE YELLOW; GLUCOSE, URINE NEGATIVE (NEGATIVE); KETONES,URINE NEGATIVE (NEGATIVE); LEUKOCYTE ESTERASE,URINE LARGE (NEGATIVE); NITRITE,URINE NEGATIVE (NEGATIVE); PROTEIN,URINE NEGATIVE (NEGATIVE); URINE SPECIFIC GRAVITY 1.018; UROBILINOGEN,URINE NEGATIVE mg/dL (<2.0)
[2018-09-07 12:18] LABS: ANION GAP 11 (5-19); BLOOD UREA NITROGEN 24 mg/dL (7-20); CALCIUM 9.5 mg/dL (8.4-10.2); CARBON DIOXIDE 27 mmol/L (22-30); CHLORIDE 104 mmol/L (98-107); GLUCOSE 105 mg/dL (75-110); SODIUM 142.3 mmol/L (137-145)
== END ==
LOC: OD 11:07
PROVIDERS: ATTEND Internal Medicine Nephrology
DX: I13.0 Hypertensive heart and chronic kidney disease with heart failure and stage 1 through stage 4 chronic kidney disease, or unspecified chronic kidney disease (principal); N18.3 Chronic kidney disease, stage 3 (moderate); I50.9 Heart failure, unspecified; N39.0 Urinary tract infection, site not specified
CPT/HCPCS: 36415; 80048; 81001; 83735; 85027; 87086; 87088; 87186

== ENCOUNTER → 2018-12-27 | Outpatient (CLI) | payer MEDICARE, MEDICAID ==
[2018-12-27 17:01] LABS: HEMATOCRIT 35.6 % (37.9-51.0); HEMOGLOBIN 11.9 g/dL (13.5-17.0); MEAN CORPUSCULAR HEMOGLOBIN 31.6 pg (27.0-33.4); MEAN CORPUSCULAR HGB CONC 33.4 g/dL (32.0-36.0); MEAN CORPUSCULAR VOLUME 95 fl (80-97); PLATELET COUNT 188 10^3/uL (150-450); RED BLOOD COUNT 3.77 10^6/uL (4.35-5.55); RED CELL DISTRIBUTION WIDTH 16.7 % (11.5-14.0)
[2018-12-27 17:30] LABS: ANION GAP 10 (5-19); BLOOD UREA NITROGEN 22 mg/dL (7-20); CALCIUM 9.5 mg/dL (8.4-10.2); CARBON DIOXIDE 28 mmol/L (22-30); CHLORIDE 103 mmol/L (98-107); GLUCOSE 112 mg/dL (75-110); POTASSIUM 4.5 mmol/L (3.6-5.0); SODIUM 140.6 mmol/L (137-145)
== END ==
LOC: OD 15:20
PROVIDERS: ATTEND Internal Medicine Nephrology
DX: I12.9 Hypertensive chronic kidney disease with stage 1 through stage 4 chronic kidney disease, or unspecified chronic kidney disease (principal); N18.3 Chronic kidney disease, stage 3 (moderate); E11.22 Type 2 diabetes mellitus with diabetic chronic kidney disease
CPT/HCPCS: 36415; 80048; 85027

== ENCOUNTER → 2019-03-08 | Outpatient (CLI) | payer MEDICARE, MEDICAID ==
--- NOTE | 2019-03-08 16:28 | RADIOLOGY REPORT (SQ) ---
EXAM DESCRIPTION: CHEST PA/LATERAL COMPLETED DATE/TIME: 03/08/2019 4:16 pm REASON FOR STUDY: SHORTNESS OF BREATH COMPARISON: CT chest 08/13/2017 AP chest 08/12/2017 EXAM PARAMETERS: NUMBER OF VIEWS: two views TECHNIQUE: Digital Frontal and Lateral radiographic views of the chest acquired. RADIATION DOSE: NA LIMITATIONS: none FINDINGS: LUNGS AND PLEURA: There is dense opacification of the left lower hemithorax likely due to left lower lobe consolidation and pleural fluid. No left pneumothorax. On the right side, blunting of the lateral costophrenic sulcus is present from airspace disease, nodu le, or pleural effusion. Remainder of the right hemithorax is otherwise unremarkable. MEDIASTINUM AND HILAR STRUCTURES: No masses or contour abnormalities. HEART AND VASCULAR STRUCTURES: Massive cardiomegaly BONES: Thoracic spine ankylosis, no acute fracture HARDWARE: Left-sided dual lead pacemaker. Upper abdominal surgical clips from gastric surgery OTHER: No other significant finding. IMPRESSION: Opacified left lower hemithorax likely due to left lower lobe pneumonia and pleural effu titi TECHNICAL DOCUMENTATION: JOB ID: [id number] [employer]- All Rights Reserved Reading location - IP/workstation name: [email or web address]
== END ==
LOC: OD 15:48
PROVIDERS: ATTEND Family Medicine
DX: R06.02 Shortness of breath (principal)
CPT/HCPCS: 71046

== ENCOUNTER 2019-03-09 15:41 | Inpatient (IN) | payer MEDICARE, MEDICAID ==
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
[2019-03-09] MEDS ORDERED: IPRATROPIUM/ALBUTEROL 0.5-2.5 MG/3 ML AMPUL NEB PRN (18:38)
[2019-03-09] MEDS ORDERED: ACETAMINOPHEN 325 MG TABLET PO PRN (18:38)
[2019-03-09] MEDS ORDERED: DEXTROSE 50%-WATER 25 GM/50 ML DISP.SYRIN IV PRN ×2 (18:53)
[2019-03-09] MEDS ORDERED: DEXTROSE 40% GEL 15 GM TUBE PO PRN ×2 (18:53)
[2019-03-09] MEDS ORDERED: GLUCAGON,HUMAN RECOMB 1 MG INJ IM PRN (18:53)
[2019-03-09] MEDS ORDERED: CEFTRIAXONE SODIUM 1,000 MG in DEXTROSE 5%-WATER 50 ML IV SCH (21:00)
[2019-03-09] MEDS ORDERED: (PENDING PHARMACY ID) (Rosuvastatin Calcium [Crestor 20 Mg Tablet] 20 MG) PO SCH (22:00)
[2019-03-09] MEDS ORDERED: FUROSEMIDE INJ/PF 20 MG/2 ML SDV IV SCH (22:00)
[2019-03-09] MEDS ORDERED: AZITHROMYCIN 500 MG in DEXTROSE 5%-WATER 250 ML IV SCH (22:00)
[2019-03-09] MEDS: INSULIN LISPRO 100 UNIT/ML 3 ML VIAL SUBCUT SCH (23:07)
--- NOTE | 2019-03-09 23:23 | RADIOLOGY REPORT (SQ) ---
EXAM: CT abdomen and pelvis with IV contrast CLINICAL DATA: 89-year-old male with left lower quadrant pain TECHNICAL DATA: Axial CT imaging of the abdomen and pelvis was performed following the administration of intravenous contrast.. Sagittal and coronal reconstructed images were then performed. The CT study is performed according to ALARA (as low as reasonably achievable) or ALARA/IMAGE GENTLY, with automatic adjustment of mA and/or kV according to patient size. Performed on: 03/09/2019 at 7:28 PM. Comparison: Previous CT abdomen and pelvis performed on 12/16/2012 FINDINGS: Lung bases: There are small bilateral pleural effusions slightly larger on the left. There is mild bibasilar compressive atelectasis. The heart is enlarged. Pacemaker wires extend into the right atrium and right ventricle. Liver:The liver is normal in size and configuration. No focal hepatic abnormalities are identified. Liver attenuation is within normal limits. Spleen:The spleen is normal is size, configuration and attenuation. Gallbladder and bile duct: The gallbladder is surgically absent. There is no biliary ductal dilatation. Pancreas: The pancreas is grossly normal in size and configuration. Adrenal Glands:The adrenal glands are normal in size and configuration. Kidneys: The left kidney is surgically absent. There is no evidence of hydronephrosis. There are nonobstructing right renal calculi. There is a small exophytic cyst arising from the lateral cortex of the midpole of the right kidney. There is a large metallic artifact along the medial aspect of the right kidney which produces spray artifact and results in slight degradation of image quality. Stomach:The stomach is grossly normal. There is no definite hiatal hernia. There are postsurgical changes along the anterior upper abdominal wall and anterior peritoneal cavity just inferior to the region of the gastric antrum. Bowel:The bowel gas pattern is non specific and non obstructive. There is a small left paracentral ventral umbilical hernia containing nondilated small bowel loops. This is new when compared to the prior study performed on 12/16/2012. Appendix: The appendix is normal. Free air:There is no evidence of free air. Free fluid: There is no evidence of free fluid. Vasculature: The aorta is normal in caliber and contour. There are atherosclerotic calcifications along the abdominal aorta and major branch vessels. The inferior vena cava is grossly unremarkable. There is a filter within the inferior vena cava. The struts of the filter do not appear to extend beyond the lumen. There are surgical clips in the retroperitoneal region. Lymphadenopathy: No pathologic lymphadenopathy is identified. Bladder: The bladder is well distended and smooth in contour. Reproductive: The prostate gland is normal in size. There are coarse calcifications within the prostate gland. Bones: No acute osseous abnormalities are identified. There are degenerative changes of the visualized thoracolumbar spine. There is trace anterolisthesis of L4 relative to L5. Soft tissues: No focal soft tissue abnormalities are identified. There is very mild diffuse infiltration of the subcutaneous fat consistent with edema. IMPRESSION: 1. Small bilateral pleural effusions slightly larger on the left with associated mild bibasilar compressive atelectasis. 2. Since the prior study there has been development of a small left paracentral ventral umbilical hernia containing nondilated small bowel loops. There is no evidence of proximal small bowel obstruction. There is no evidence of strangulation or incarceration. There are postsurgical changes along the anterior abdominal wall in the midline and anterior peritoneal cavity. There are additional surgical clips scattered throughout the abdomen and retroperitoneum. 3. Remote left nephrectomy. 4. Nonobstructing right nephrolithiasis. 5. Remote cholecystectomy. 6. Cardiomegaly. 7. Mild subcutaneous edema. 8. Other chronic findings as described above.
[2019-03-09] MEDS: FUROSEMIDE INJ/PF 20 MG/2 ML SDV IV SCH (23:25)
[2019-03-09] MEDS: ATORVASTATIN CALCIUM 40 MG TABLET PO SCH (23:25)
[2019-03-09] MEDS: FAMOTIDINE 20 MG TABLET PO SCH (23:25)
[2019-03-09] MEDS ORDERED: CEFTRIAXONE SODIUM 1,000 MG in DEXTROSE 5%-WATER 50 ML IV ONE (23:30)
--- NOTE | 2019-03-09 23:38 | PDOC PROGRESS REPORT ---
Subjective Progress Note for:: 03/09/19 Subjective:: Patient admitted directly by Dr Levy's office because of symptoms of progressive dyspnea, fatigue, tiredness and increasing bilateral pedal Edema. There is no history of fever, chills. Patient denied any chest pains of palpitations. Patient has a prior history of congestive heart failure, diabetes, peripheral vascular disease. Patient was last seen in my office in October 2017. His last echocardiogram was around that time. Reason For Visit: CHF, PNEMONIA Physical Exam Vital Signs: Temp Pulse Resp BP Pulse Ox 97.6 F 70 22 H 130/88 H 100 03/09/19 19:11 03/09/19 15:47 03/09/19 20:00 03/09/19 20:00 03/09/19 20:00 Intake & Output 03/08/19 03/09/19 03/10/19 06:59 06:59 06:59 Weight 95.9 kg General appearance: PRESENT: no acute distress, well-developed, well-nourished Head exam: PRESENT: atraumatic, normocephalic Eye exam: PRESENT: conjunctiva pink, EOMI, PERRLA. ABSENT: scleral icterus Ear exam: PRESENT: normal external ear exam Mouth exam: PRESENT: moist, tongue midline Neck exam: PRESENT: JVD. ABSENT: carotid bruit, lymphadenopathy, thyromegaly Respiratory exam: PRESENT: crackles - Bibasal, rales - bilat, other - dullness R base. ABSENT: rhonchi, wheezes Cardiovascular exam: PRESENT: RRR, +S1, +S2, systolic murmur - 2/6 ESM LSB, other - Pacemaker left side. ABSENT: diastolic murmur, rubs Pulses: PRESENT: normal dorsalis pedis pul Vascular exam: PRESENT: normal capillary refill GI/Abdominal exam: PRESENT: normal bowel sounds, soft. ABSENT: distended, guarding, mass, organolmegaly, rebound, tenderness Rectal exam: PRESENT: deferred Extremities exam: PRESENT: pedal edema - 2-3 plus Bilat. ABSENT: calf tenderness, clubbing Neurological exam: PRESENT: alert, awake, oriented to person, oriented to place, oriented to time, oriented to situation, CN II-XII grossly intact. ABSENT: motor sensory deficit Psychiatric exam: PRESENT: appropriate affect, normal mood. ABSENT: homicidal ideation, suicidal ideation Skin exam: PRESENT: dry, intact, warm. ABSENT: cyanosis, rash Results Impressions: Abdomen/Pelvis CT 03/09/19 00:00 IMPRESSION: 1. Small bilateral pleural effusions slightly larger on the left with associated mild bibasilar compressive atelectasis. 2. Since the prior study there has been development of a small left paracentral ventral umbilical hernia containing nondilated small bowel loops. There is no evidence of proximal small bowel obstruction. There is no evidence of strangulation or incarceration. There are postsurgical changes along the anterior abdominal wall in the midline and anterior peritoneal cavity. There are additional surgical clips scattered throughout the abdomen and retroperitoneum. 3. Remote left nephrectomy. 4. Nonobstructing right nephrolithiasis. 5. Remote cholecystectomy. 6. Cardiomegaly. 7. Mild subcutaneous edema. 8. Other chronic findings as described above. Assessment & Plan - Diagnosis (1) Congestive heart failure Qualifiers: Heart failure type: unspecified Heart failure chronicity: acute on chronic Qualified Code(s): I50.9 - Heart failure, unspecified Is this a current diagnosis for this admission?: Yes (2) Type 2 diabetes mellitus Qualifiers: Diabetes mellitus [facility] insulin use: unspecified [facility] care [facility] administrator insulin use status Diabetes mellitus complication status: with unspecified complications Qualified Code(s): E11.8 - Type 2 diabetes mellitus with unspecified complications Is this a current diagnosis for this admission?: Yes (3) Bilateral pleural effusion Is this a current diagnosis for this admission?: Yes (4) Chronic kidney disease, stage III (moderate) Is this a current diagnosis for this admission?: Yes (5) Pacemaker Is this a current diagnosis for this admission?: Yes - Notes Notes: Patient has bilateral pleural effusion, elevated JVP and bilateral pedal edema therefore is felt to have CHF. Possibility of underlying pneumonia is their therefore will recommend continuing with current management. Agree with diuretic therapy. Will order 2D Echo. Continue other current management plans including antibiotics. - Time Time with patient: Greater than 35 minutes - Patient's son and daughter in the room. Prognosis discussed with them. Therapeutic plans discussed with them. Medications reviewed and adjusted accordingly: Yes
[2019-03-10] MEDS ORDERED: AZITHROMYCIN 500 MG in DEXTROSE 5%-WATER 250 ML IV ONE ×2
[2019-03-10] MEDS: FUROSEMIDE INJ/PF 20 MG/2 ML SDV IV SCH ×3 (05:14→22:21)
[2019-03-10 05:33] LABS: ABSOLUTE LYMPHOCYTES (AUTO) 0.5 10^3/uL (0.5-4.7); ABSOLUTE MONOCYTES (AUTO) 0.4 10^3/uL (0.1-1.4); ABSOLUTE NEUT (AUTO) 2.5 10^3/uL (1.7-8.2); BASOPHILS % (AUTO) 0.7 % (0-2); EOSINOPHILS % (AUTO) 0.5 % (0-6); HEMATOCRIT 38.3 % (37.9-51.0); HEMOGLOBIN 12.3 g/dL (13.5-17.0); MEAN CORPUSCULAR HEMOGLOBIN 30.1 pg (27.0-33.4); MEAN CORPUSCULAR HGB CONC 32.2 g/dL (32.0-36.0); MEAN CORPUSCULAR VOLUME 94 fl (80-97); PLATELET COUNT 146 10^3/uL (150-450); RED CELL DISTRIBUTION WIDTH 17.1 % (11.5-14.0); SEGMENTED NEUTROPHILS % (AUTO) 72.8 % (42-78); TOTAL CELLS COUNTED % (AUTO) 100 %; WHITE BLOOD COUNT 3.4 10^3/uL (4.0-10.5)
[2019-03-10 05:51] LABS: ALANINE AMINOTRANSFERASE 20 U/L (21-72); ALBUMIN 3.2 g/dL (3.5-5.0); ALKALINE PHOSPHATASE 67 U/L (38-126); ANION GAP 9 (5-19); ASPARTATE AMINO TRANSFERASE 23 U/L (17-59); BILIRUBIN,DIRECT 0.5 mg/dL (0.0-0.4); BILIRUBIN,TOTAL 0.8 mg/dL (0.2-1.3); BLOOD UREA NITROGEN 32 mg/dL (7-20); CALCIUM 9.1 mg/dL (8.4-10.2); CARBON DIOXIDE 30 mmol/L (22-30); CHLORIDE 103 mmol/L (98-107); GLUCOSE 99 mg/dL (75-110); POTASSIUM 4.1 mmol/L (3.6-5.0); SODIUM 141.9 mmol/L (137-145); TOTAL PROTEIN 6.6 g/dL (6.3-8.2)
[2019-03-10] MEDS: INSULIN LISPRO 100 UNIT/ML 3 ML VIAL SUBCUT SCH ×4 (07:50→22:00)
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
[2019-03-10] MEDS ORDERED: AMLODIPINE BESYLATE 5 MG TABLET PO SCH (10:00)
[2019-03-10] MEDS ORDERED: CEFTRIAXONE 1 GM/D5W RTU 1 GM/50 ML RTUPB IV SCH (10:00)
[2019-03-10] MEDS: DOCUSATE SODIUM 100 MG CAPSULE PO SCH ×2 (10:14→16:59)
[2019-03-10] MEDS: APIXABAN 2.5 MG TABLET PO SCH ×2 (10:14→16:59)
[2019-03-10] MEDS: TAMSULOSIN HCL 0.4 MG CAP.SR.24H PO SCH (10:14)
[2019-03-10] MEDS: SITAGLIPTIN PHOSPHATE 50 MG TABLET PO SCH (10:14)
[2019-03-10] MEDS: FAMOTIDINE 20 MG TABLET PO SCH ×2 (10:14→22:22)
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
[2019-03-10] MEDS ORDERED: LORAZEPAM 1 MG TABLET ONE (12:46)
[2019-03-10] MEDS: AZITHROMYCIN 500 MG in DEXTROSE 5%-WATER 250 ML IV SCH (16:59)
--- NOTE | 2019-03-10 18:15 | XCELERA REPORT ---
[address] [address] Transthoracic Echocardiogram Report Name: PRASANNA NAVARRETE Age: 89 yrs Gender: Male : 1930 Patient Status: [facility] Date: 03/10/2019 03:21 PM Height: 68 in Weight: 211 lb BSA: 2.1 m2 Procedure: A complete two-dimensional transthoracic echocardiogram was performed (2D, M-mode, spectral and color flow Doppler). The study was technically adequate with some images being suboptimal in quality. Reason For Study: CHF Ordering Physician: SARAHI GARRIDO Performed By: Soren Love Interpretation Summary The Ejection Fraction estimate is <20% Left ventricular systolic function is severely reduced. There is moderate concentric left ventricular hypertrophy. Doppler measurements suggest pseudonormalized left ventricular relaxation, which is associated with grade II/IV or mild to moderate diastolic dysfunction There is severe global hypokinesis of the left ventricle. The left ventricle is grossly normal size. The right ventricular systolic function is borderline reduced. The right ventricle is mildly dilated. The right atrium is mildly dilated. The left atrium is moderately dilated. Interarterial septum not well visualized and not well dopplered. Cannot comment on ASD/PFO presence. There is a mild to moderate amount of mitral regurgitation There is no mitral valve stenosis. There is a mild amount of aortic regurgitation There is no aortic valve stenosis There is a moderate amount of tricuspid regurgitation There is moderate to severe pulmonary hypertension by echo Best estimated RVSP is approximately 60 mm/Hg. The aortic root is not well visualized but is probably normal size. The inferior vena cava was not visualized Minimal pericardial effusion. Small right pleural effusion. Small left pleural effusion. MMode/2D Measurements & Calculations RVDd: 4.4 cm LVIDd: 5.6 cm FS: 12.1 % Ao root diam: 3.6 cm IVSd: 1.3 cm LVIDs: 4.9 cm EDV(Teich): 154.9 ml Ao root area: 10.2 cm2 LVPWd: 1.2 cm ESV(Teich): 114.9 ml LA dimension: 4.8 cm EF(Teich): 25.8 % Doppler Measurements & Calculations MV E max lo: MV P1/2t max lo: Ao V2 max: LV V1 max P.9 cm/sec 94.7 cm/sec 79.5 cm/sec 2.1 mmHg MV A max lo: MV P1/2t: 54.9 msec Ao max P.5 mmHg LV V1 max: 76.0 cm/sec MVA(P1/2t): 4.0 cm2 72.1 cm/sec MV E/A: 1.2 MV dec slope: 505.1 cm/sec2 MV dec time: 0.18 sec PA V2 max: TR max lo: MV P1/2t-pr_phl: 66.5 cm/sec 382.8 cm/sec 54.9 msec PA max P.8 mmHgTR max P.6 mmHg Left Ventricle The left ventricle is grossly normal size. There is moderate concentric left ventricular hypertrophy. Left ventricular systolic function is severely reduced. The Ejection Fraction estimate is <20%. Doppler measurements suggest pseudonormalized left ventricular relaxation, which is associated with grade II/IV or mild to moderate diastolic dysfunction. There is severe global hypokinesis of the left ventricle. Right Ventricle The right ventricle is mildly dilated. There is normal right ventricular wall thickness. The right ventricular systolic function is borderline reduced. Atria The right atrium is mildly dilated. The left atrium is moderately dilated. Interarterial septum not well visualized and not well dopplered. Cannot comment on ASD/PFO presence. Mitral Valve The mitral valve is grossly normal. There is no mitral valve stenosis. There is a mild to moderate amount of mitral regurgitation. Aortic Valve The aortic valve is grossly normal. There is no aortic valve stenosis. There is a mild amount of aortic regurgitation. Tricuspid Valve The tricuspid valve is not well visualized, but is grossly normal. There is no tricuspid stenosis. There is a moderate amount of tricuspid regurgitation. There is moderate to severe pulmonary hypertension by echo. Best estimated RVSP is approximately 60 mm/Hg. Pulmonic Valve The pulmonic valve is not well visualized. Great Vessels The aortic root is not well visualized but is probably normal size. The inferior vena cava was not visualized. Effusions Minimal pericardial effusion. Small right pleural effusion. Small left pleural effusion. : SARAHI GARRIDO > Sarahi Garrido
--- NOTE | 2019-03-10 18:39 | PDOC PROGRESS REPORT ---
Subjective Progress Note for:: 03/10/19 Subjective:: Patient admitted directly by Dr Levy's office because of symptoms of progressive dyspnea, fatigue, tiredness and increasing bilateral pedal Edema. There is no history of fever, chills. Patient denied any chest pains of palpitations. Patient has a prior history of congestive heart failure, diabetes, peripheral vascular disease. Patient was last seen in my office in October 2017. His last echocardiogram was around that time. Today patient feels somewhat symptomatically better as regards shortness of breath. Patient had a 2D echocardiogram which shows severely depressed LVEF and also significant diastolic dysfunction. Patient also noted to have moderate to severe pulmonary hypertension, mild to moderate mitral regurgitation, moderate tricuspid regurgitation. A preliminary report from June 2017 shows that EF at that time was around 50%. Reason For Visit: CHF, PNEUMONIA Physical Exam Vital Signs: Temp Pulse Resp BP Pulse Ox 97.2 F 78 18 119/89 H 95 03/10/19 09:14 03/10/19 16:30 03/10/19 16:30 03/10/19 16:30 03/10/19 16:30 Intake & Output 03/09/19 03/10/19 03/11/19 06:59 06:59 06:59 Intake Total 520 Output Total 300 Balance 220 Weight 95.2 kg Exam: GENERAL: well-nourished and in no acute distress. Alert and oriented x3 HEAD: Atraumatic, normocephalic. EYES: [place], sclera anicteric, conjunctiva are normal. ENT: Moist mucous membranes. No oral ulcerations or bleeding gums noted. No obvious ear, nose or throat abnormalities noted. NECK: supple without lymphadenopathy. Trachea is central. No cervical or axillary lymphadenopathy noted. Carotids are 2+, JVD mildly distended LUNGS: Bibasilar fine crackles crackles in bilateral basal dullness noted on percussion. CHEST: Palpation of the chest wall shows no significant chest wall tenderness. HEART: [place] WARP TENSION TESTER, No PSH, 1/6 MATHEW aortic area, 1/6 trejo systolic murmur mitral area, no rubs, no gallops. ABDOMEN: Soft, no significant tenderness appreciated, normoactive bowel sounds. No guarding, no rebound. No rigidity noted . No masses appreciated. EXTREMITIES: Pedal pulses are 1-2+, no calf tenderness noted. No clubbing or cyanosis. 2-3+ pedal edema noted NEUROLOGICAL: Focused neurological exam showed no significant neurologic deficit. Normal speech, no focal weakness appreciated. PSYCH: Normal mood, normal affect. Judgment and insight within normal limits. SKIN: No significant ecchymosis, skin is noted to be warm. MUSCULOSKELETAL EXAM: No significant acute joint swelling noted. Results Laboratory Results: 03/10/19 04:56 03/10/19 04:56 03/10/19 03/10/19 04:56 04:56 WBC 3.4 L RBC 4.10 L Hgb 12.3 L Hct 38.3 MCV 94 MCH 30.1 MCHC 32.2 RDW 17.1 H Plt Count 146 L Seg Neutrophils % 72.8 Lymphocytes % 14.0 Monocytes % 12.0 Eosinophils % 0.5 Basophils % 0.7 Absolute Neutrophils 2.5 Absolute Lymphocytes 0.5 Absolute Monocytes 0.4 Absolute Eosinophils 0.0 Absolute Basophils 0.0 Sodium 141.9 Potassium 4.1 Chloride 103 Carbon Dioxide 30 Anion Gap 9 BUN 32 H Creatinine 1.77 H Est GFR ( Amer) 44 L Est GFR (Non-Af Amer) 37 L Glucose 99 Calcium 9.1 Magnesium 1.8 Total Bilirubin 0.8 AST 23 ALT 20 L Alkaline Phosphatase 67 Total Protein 6.6 Albumin 3.2 L 03/10/19 04:56 NT-Pro-B Natriuret Pep [id number] H Impressions: Abdomen/Pelvis CT 03/09/19 00:00 IMPRESSION: 1. Small bilateral pleural effusions slightly larger on the left with associated mild bibasilar compressive atelectasis. 2. Since the prior study there has been development of a small left paracentral ventral umbilical hernia containing nondilated small bowel loops. There is no evidence of proximal small bowel obstruction. There is no evidence of strangulation or incarceration. There are postsurgical changes along the anterior abdominal wall in the midline and anterior peritoneal cavity. There are additional surgical clips scattered throughout the abdomen and retroperitoneum. 3. Remote left nephrectomy. 4. Nonobstructing right nephrolithiasis. 5. Remote cholecystectomy. 6. Cardiomegaly. 7. Mild subcutaneous edema. 8. Other chronic findings as described above. 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: unspecified local intermodal truck driver insulin use status Diabetes mellitus complication status: with unspecified complications Qualified Code(s): E11.8 - Type 2 diabetes mellitus with unspecified complications Is this a current diagnosis for this admission?: Yes (3) Chronic kidney disease, stage III (moderate) Is this a current diagnosis for this admission?: Yes (4) Hypertension Qualifiers: Hypertension type: essential hypertension Qualified Code(s): I10 - Essential (primary) hypertension Is this a current diagnosis for this admission?: Yes (5) Pacemaker Is this a current diagnosis for this admission?: Yes - Notes Notes: Congestive heart failure secondary to severe systolic and also diastolic dysfunction. Will start patient on Entresto and BiDil therapy. Orders written. Continue diuretics. May consider holding diuretics if patient gets hypotens ana. Have stopped Norvasc. This will allow us to escalate Entresto dose. Cardiomyopathy: Dilated. In the absence of chest pain, do not feel heart catheterization is indicated especially with significant other comorbid diagnoses and advanced age. We will try to optimize medical management. Will talk to patient's family regarding upgrade to a biventricular pacer defibrillator. Chronic kidney disease: Nephrology on board. Hypertension: Relatively well controlled. Pacemaker: Noted to be functioning normally. Bilateral pleural effusion: Seems to be from CHF. - Time Time with patient: Greater than 35 minutes Medications reviewed and adjusted accordingly: Yes
--- NOTE | 2019-03-10 18:46 | EKG REPORT ---
SEVERITY:- ABNORMAL ECG - ATRIAL-SENSED VENTRICULAR-PACED RHYTHM : Confirmed by: Sarahi Orellana 10-Mar-2019 18:45:40
[2019-03-10] MEDS: SACUBITRIL/VALSARTAN 24 MG/26 MG TABLET PO SCH (19:30)
[2019-03-10] MEDS: ISOSORB DINIT/HYDRALAZINE HCL 20-37.5 MG TABLET PO SCH (22:22)
[2019-03-10] MEDS: ATORVASTATIN CALCIUM 40 MG TABLET PO SCH (22:22)
[2019-03-10] MEDS: AZITHROMYCIN 250 MG TABLET PO SCH (22:22)
[2019-03-10] MEDS: CEFTRIAXONE SODIUM 1,000 MG in DEXTROSE 5%-WATER 50 ML IV SCH (22:23)
[2019-03-11 05:06] LABS: ABSOLUTE LYMPHOCYTES (AUTO) 0.5 10^3/uL (0.5-4.7); ABSOLUTE MONOCYTES (AUTO) 0.3 10^3/uL (0.1-1.4); ABSOLUTE NEUT (AUTO) 1.5 10^3/uL (1.7-8.2); BASOPHILS % (AUTO) 0.5 % (0-2); HEMATOCRIT 38.4 % (37.9-51.0); HEMOGLOBIN 12.3 g/dL (13.5-17.0); LYMPHOCYTES % (AUTO) 21.1 % (13-45); MEAN CORPUSCULAR HEMOGLOBIN 29.8 pg (27.0-33.4); MEAN CORPUSCULAR HGB CONC 32.1 g/dL (32.0-36.0); MEAN CORPUSCULAR VOLUME 93 fl (80-97); MONOCYTES % (AUTO) 14.3 % (3-13); PLATELET COUNT 150 10^3/uL (150-450); RED BLOOD COUNT 4.12 10^6/uL (4.35-5.55); RED CELL DISTRIBUTION WIDTH 17.3 % (11.5-14.0); SEGMENTED NEUTROPHILS % (AUTO) 63.1 % (42-78); TOTAL CELLS COUNTED % (AUTO) 100 %; WHITE BLOOD COUNT 2.4 10^3/uL (4.0-10.5)
[2019-03-11 05:35] LABS: ANION GAP 8 (5-19); BLOOD UREA NITROGEN 27 mg/dL (7-20); CALCIUM 8.5 mg/dL (8.4-10.2); CARBON DIOXIDE 31 mmol/L (22-30); CHLORIDE 103 mmol/L (98-107); GLUCOSE 76 mg/dL (75-110); POTASSIUM 4.1 mmol/L (3.6-5.0); SODIUM 141.9 mmol/L (137-145)
[2019-03-11] MEDS: FUROSEMIDE INJ/PF 20 MG/2 ML SDV IV SCH ×3 (06:01→21:17)
[2019-03-11] MEDS: SACUBITRIL/VALSARTAN 24 MG/26 MG TABLET PO SCH ×2 (06:02→17:57)
[2019-03-11] MEDS: INSULIN LISPRO 100 UNIT/ML 3 ML VIAL SUBCUT SCH ×4 (08:28→22:00)
[2019-03-11] MEDS: APIXABAN 2.5 MG TABLET PO SCH ×2 (09:31→17:56)
[2019-03-11] MEDS: ISOSORB DINIT/HYDRALAZINE HCL 20-37.5 MG TABLET PO SCH ×2 (09:31→21:18)
[2019-03-11] MEDS: SITAGLIPTIN PHOSPHATE 50 MG TABLET PO SCH (09:31)
[2019-03-11] MEDS: TAMSULOSIN HCL 0.4 MG CAP.SR.24H PO SCH (09:31)
[2019-03-11] MEDS: FAMOTIDINE 20 MG TABLET PO SCH ×2 (09:32→21:19)
[2019-03-11] MEDS: DOCUSATE SODIUM 100 MG CAPSULE PO SCH ×2 (09:34→18:04)
--- NOTE | 2019-03-11 11:13 | EKG REPORT ---
SEVERITY:- ABNORMAL ECG - ATRIAL-SENSED VENTRICULAR-PACED COMPLEXES : Confirmed by: Sarahi Orellana 11-Mar-2019 11:13:24
--- NOTE | 2019-03-11 12:22 | PDOC PROGRESS REPORT ---
Subjective Progress Note for:: 03/11/19 Subjective:: Patient is currently doing fair Patient is denied any chest pain to than any shortness of the breath Patient EF is very low as per discussed with the cardiology Patient at this point discussed with the cardiology need a LifeVest and probably reevaluate for the defibrillator later Discussed with the family on the bedside Reason For Visit: CHF, PNEUMONIA Physical Exam Vital Signs: Temp Pulse Resp BP Pulse Ox 97.3 F 73 18 120/75 100 03/11/19 09:07 03/11/19 09:07 03/11/19 09:07 03/11/19 09:07 03/11/19 09:07 Intake & Output 03/10/19 03/11/19 03/12/19 06:59 06:59 06:59 Intake Total 520 537 Output Total 300 Balance 220 537 Weight 95.2 kg 95.2 kg General appearance: PRESENT: no acute distress, well-developed, well-nourished Head exam: PRESENT: atraumatic, normocephalic Eye exam: PRESENT: conjunctiva pink, EOMI, PERRLA. ABSENT: scleral icterus Ear exam: PRESENT: normal external ear exam Mouth exam: PRESENT: moist, tongue midline Neck exam: PRESENT: full ROM. ABSENT: carotid bruit, JVD, lymphadenopathy, thyromegaly Respiratory exam: PRESENT: clear to auscultation ana Cardiovascular exam: PRESENT: RRR. ABSENT: diastolic murmur, rubs, systolic murmur Pulses: PRESENT: normal dorsalis pedis pul, +2 pedal pulses bilateral Vascular exam: PRESENT: normal capillary refill GI/Abdominal exam: PRESENT: normal bowel sounds, soft. ABSENT: distended, guarding, mass, organolmegaly, rebound, tenderness Rectal exam: PRESENT: deferred Neurological exam: PRESENT: alert, awake, oriented to person, oriented to place, oriented to time, oriented to situation, CN II-XII grossly intact. ABSENT: motor sensory deficit Psychiatric exam: PRESENT: appropriate affect, normal mood. ABSENT: homicidal ideation, suicidal ideation Skin exam: PRESENT: dry, intact, warm. ABSENT: cyanosis, rash Results Laboratory Results: 03/11/19 03:54 03/11/19 03:54 03/11/19 03/11/19 03:54 03:54 WBC 2.4 L RBC 4.12 L Hgb 12.3 L Hct 38.4 MCV 93 MCH 29.8 MCHC 32.1 RDW 17.3 H Plt Count 150 Seg Neutrophils % 63.1 Lymphocytes % 21.1 Monocytes % 14.3 H Eosinophils % 1.0 Basophils % 0.5 Absolute Neutrophils 1.5 L Absolute Lymphocytes 0.5 Absolute Monocytes 0.3 Absolute Eosinophils 0.0 Absolute Basophils 0.0 Sodium 141.9 Potassium 4.1 Chloride 103 Carbon Dioxide 31 H Anion Gap 8 BUN 27 H Creatinine 1.62 H Est GFR ( Amer) 49 L Est GFR (Non-Af Amer) 41 L Glucose 76 Calcium 8.5 Magnesium 1.7 03/10/19 04:56 NT-Pro-B Natriuret Pep 86250 H Impressions: Abdomen/Pelvis CT 03/09/19 00:00 IMPRESSION: 1. Small bilateral pleural effusions slightly larger on the left with associated mild bibasilar compressive atelectasis. 2. Since the prior study there has been development of a small left paracentral ventral umbilical hernia containing nondilated small bowel loops. There is no evidence of proximal small bowel obstruction. There is no evidence of strangulation or incarceration. There are postsurgical changes along the anterior abdominal wall in the midline and anterior peritoneal cavity. There are additional surgical clips scattered throughout the abdomen and retroperitoneum. 3. Remote left nephrectomy. 4. Nonobstructing right nephrolithiasis. 5. Remote cholecystectomy. 6. Cardiomegaly. 7. Mild subcutaneous edema. 8. Other chronic findings as described above. Assessment & Plan - Diagnosis (1) Congestive heart failure Qualifiers: Heart failure type: unspecified Heart failure chronicity: acute on chronic Qualified Code(s): I50.9 - Heart failure, unspecified Is this a current diagnosis for this admission?: Yes Plan: Continues to IV Lasix (2) Pneumonia Qualifiers: Pneumonia type: due to unspecified organism Is this a current diagnosis for this admission?: Yes Plan: And had a pleural effusions with some asbestosis patient's most likely a CHF but will cover with the antibiotic (3) Hematuria Qualifiers: Hematuria type: unspecified type Qualified Code(s): R31.9 - Hematuria, unspecified Is this a current diagnosis for this admission?: Yes Plan: Due to most likely possible UTI and currently patient on anticoagulations Currently not actively bleeding Patient have outpatient appointment to see the urology (4) Coronary artery disease Qualifiers: Coronary Disease-Associated Artery/Lesion type: unspecified vessel or lesion type Is this a current diagnosis for this admission?: Yes Plan: Consult the cardiology (5) Acute renal failure Qualifiers: Acute renal failure type: unspecified Qualified Code(s): N17.9 - Acute kidn ey failure, unspecified Is this a current diagnosis for this admission?: Yes Plan: Likely due to the worsening the CHF Patient's baseline creatinine of 1.7 (6) Hypertension Qualifiers: Hypertension type: essential hypertension Qualified Code(s): I10 - Essential (primary) hypertension Is this a current diagnosis for this admission?: Yes (7) Pacemaker Is this a current diagnosis for this admission?: Yes (8) Type 2 diabetes mellitus Qualifiers: Diabetes mellitus mcfp insulin use: unspecified website programmer insulin use status Diabetes mellitus complication status: with unspecified complications Qualified Code(s): E11.8 - Type 2 diabetes mellitus with unspecified complications Is this a current diagnosis for this admission?: Yes Plan: Scale (9) Pleural effusion Is this a current diagnosis for this admission?: Yes Plan: We will repeat the chest x-ray (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) Qualifiers: DVT location: lower extremity Affected thrombotic vein of extremity: femoral Laterality: right Qualified Code(s): I82.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 Is this a current diagnosis for this admission?: Yes Plan: Currently taking chronic Eliquis see the associate professor of education - Time Time Spent with patient: 15-24 minutes Medications reviewed and adjusted accordingly: Yes Anticipated discharge: SNF Within: Other - Plan Summary Plan Summary: Very extensive discussions with the patient family regarding the patient's current conditions discussed with the zig zag stitcher
[2019-03-11] MEDS: CARVEDILOL 3.125 MG TABLET PO SCH ×2 (15:00→21:19)
[2019-03-11] MEDS: AZITHROMYCIN 500 MG in DEXTROSE 5%-WATER 250 ML IV SCH (17:57)
[2019-03-11] MEDS: ATORVASTATIN CALCIUM 40 MG TABLET PO SCH (21:17)
[2019-03-11] MEDS: CEFTRIAXONE SODIUM 1,000 MG in DEXTROSE 5%-WATER 50 ML IV SCH (21:18)
[2019-03-11] MEDS: AZITHROMYCIN 250 MG TABLET PO SCH (21:18)
[2019-03-12 05:01] LABS: ABSOLUTE LYMPHOCYTES (AUTO) 0.7 10^3/uL (0.5-4.7); ABSOLUTE MONOCYTES (AUTO) 0.3 10^3/uL (0.1-1.4); ABSOLUTE NEUT (AUTO) 2.1 10^3/uL (1.7-8.2); BASOPHILS % (AUTO) 0.6 % (0-2); EOSINOPHILS % (AUTO) 1.2 % (0-6); HEMATOCRIT 39.4 % (37.9-51.0); HEMOGLOBIN 12.8 g/dL (13.5-17.0); LYMPHOCYTES % (AUTO) 22.4 % (13-45); MEAN CORPUSCULAR HGB CONC 32.4 g/dL (32.0-36.0); MEAN CORPUSCULAR VOLUME 93 fl (80-97); MONOCYTES % (AUTO) 10.2 % (3-13); PLATELET COUNT 174 10^3/uL (150-450); RED BLOOD COUNT 4.26 10^6/uL (4.35-5.55); RED CELL DISTRIBUTION WIDTH 17.3 % (11.5-14.0); SEGMENTED NEUTROPHILS % (AUTO) 65.6 % (42-78); TOTAL CELLS COUNTED % (AUTO) 100 %; WHITE BLOOD COUNT 3.2 10^3/uL (4.0-10.5)
[2019-03-12 05:30] LABS: ANION GAP 9 (5-19); BLOOD UREA NITROGEN 28 mg/dL (7-20); CALCIUM 8.6 mg/dL (8.4-10.2); CARBON DIOXIDE 34 mmol/L (22-30); CHLORIDE 98 mmol/L (98-107); GLUCOSE 99 mg/dL (75-110); SODIUM 141.1 mmol/L (137-145)
[2019-03-12] MEDS: FUROSEMIDE INJ/PF 20 MG/2 ML SDV IV SCH ×2 (05:32→14:47)
[2019-03-12] MEDS: SACUBITRIL/VALSARTAN 24 MG/26 MG TABLET PO SCH ×2 (05:32→17:30)
[2019-03-12] MEDS: INSULIN LISPRO 100 UNIT/ML 3 ML VIAL SUBCUT SCH ×4 (08:15→22:00)
[2019-03-12] MEDS: FAMOTIDINE 20 MG TABLET PO SCH ×2 (10:04→21:59)
[2019-03-12] MEDS: DOCUSATE SODIUM 100 MG CAPSULE PO SCH ×2 (10:04→17:30)
[2019-03-12] MEDS: CARVEDILOL 3.125 MG TABLET PO SCH ×2 (10:04→21:59)
[2019-03-12] MEDS: APIXABAN 2.5 MG TABLET PO SCH ×2 (10:05→17:30)
[2019-03-12] MEDS: SITAGLIPTIN PHOSPHATE 50 MG TABLET PO SCH (10:05)
[2019-03-12] MEDS: TAMSULOSIN HCL 0.4 MG CAP.SR.24H PO SCH (10:05)
[2019-03-12] MEDS: ISOSORB DINIT/HYDRALAZINE HCL 20-37.5 MG TABLET PO SCH ×2 (10:05→21:59)
--- NOTE | 2019-03-12 10:52 | PDOC PROGRESS REPORT ---
Subjective Progress Note for:: 03/12/19 Subjective:: Patient is currently doing fair Patient is denied any chest pain to than any shortness of the breath Patient EF is very low as per discussed with the cardiology Patient at this point discussed with the cardiology need a LifeVest and probably reevaluate for the defibrillator later Discussed with the family on the bedside Reason For Visit: CHF, PNEUMONIA Physical Exam Vital Signs: Temp Pulse Resp BP Pulse Ox 97.3 F 69 17 104/78 88 L 03/12/19 07:26 03/12/19 07:26 03/12/19 07:26 03/12/19 07:26 03/12/19 07:26 Intake & Output 03/11/19 03/12/19 03/13/19 06:59 06:59 06:59 Intake Total 537 803 Output Total 600 Balance 537 203 Weight 95.2 kg 89.4 kg General appearance: PRESENT: no acute distress, well-developed, well-nourished Head exam: PRESENT: atraumatic, normocephalic Eye exam: PRESENT: conjunctiva pink, EOMI, PERRLA. ABSENT: scleral icterus Ear exam: PRESENT: normal external ear exam Mouth exam: PRESENT: moist, tongue midline Neck exam: PRESENT: full ROM. ABSENT: carotid bruit, JVD, lymphadenopathy, thyromegaly Respiratory exam: PRESENT: clear to auscultation ana Cardiovascular exam: PRESENT: RRR. ABSENT: diastolic murmur, rubs, systolic murmur Vascular exam: PRESENT: normal capillary refill GI/Abdominal exam: PRESENT: normal bowel sounds, soft. ABSENT: distended, guarding, mass, organolmegaly, rebound, tenderness Rectal exam: PRESENT: deferred Neurological exam: PRESENT: alert, awake, oriented to person, oriented to place, oriented to time, oriented to situation. ABSENT: motor sensory deficit Psychiatric exam: PRESENT: appropriate affect, normal mood. ABSENT: homicidal ideation, suicidal ideation Skin exam: PRESENT: dry, intact, warm. ABSENT: cyanosis, rash Results Laboratory Results: 03/12/19 04:44 03/12/19 04:44 03/12/19 03/12/19 04:44 04:44 WBC 3.2 L RBC 4.26 L Hgb 12.8 L Hct 39.4 MCV 93 MCH 30.0 MCHC 32.4 RDW 17.3 H Plt Count 174 Seg Neutrophils % 65.6 Lymphocytes % 22.4 Monocytes % 10.2 Eosinophils % 1.2 Basophils % 0.6 Absolute Neutrophils 2.1 Absolute Lymphocytes 0.7 Absolute Monocytes 0.3 Absolute Eosinophils 0.0 Absolute Basophils 0.0 Sodium 141.1 Potassium 4.0 Chloride 98 Carbon Dioxide 34 H Anion Gap 9 BUN 28 H Creatinine 1.71 H Est GFR ( Amer) 46 L Est GFR (Non-Af Amer) 38 L Glucose 99 Calcium 8.6 Magnesium 1.6 03/10/19 04:56 NT-Pro-B Natriuret Pep 88900 H Impressions: Abdomen/Pelvis CT 03/09/19 00:00 IMPRESSION: 1. Small bilateral pleural effusions slightly larger on the left with associated mild bibasilar compressive atelectasis. 2. Since the prior study there has been development of a small left paracentral ventral umbilical hernia containing nondilated small bowel loops. There is no evidence of proximal small bowel obstruction. There is no evidence of strangulation or incarceration. There are postsurgical changes along the anterior abdominal wall in the midline and anterior peritoneal cavity. There are additional surgical clips scattered throughout the abdomen and retroperitoneum. 3. Remote left nephrectomy. 4. Nonobstructing right nephrolithiasis. 5. Remote cholecystectomy. 6. Cardiomegaly. 7. Mild subcutaneous edema. 8. Other chronic findings as described above. Assessment & Plan - Diagnosis (1) Congestive heart failure Qualifiers: Heart failure type: unspecified Heart failure chronicity: acute on chronic Qualified Code(s): I50.9 - Heart failure, unspecified Is this a current diagnosis for this admission?: Yes Plan: Continues to IV Lasix (2) Pneumonia Qualifiers: Pneumonia type: due to unspecified organism Is this a current diagnosis for this admission?: Yes Plan: Repeat the chest x-ray (3) Hematuria Qualifiers: Hematuria type: unspecified type Qualified Code(s): R31.9 - Hematuria, unspecified Is this a current diagnosis for this admission?: Yes Plan: Due to most likely possible UTI and currently patient on anticoagulations Currently not actively bleeding Patient have outpatient appointment to see the urology (4) Coronary artery disease Qualifiers: Coronary Disease-Associated Artery/Lesion type: unspecified vessel or lesion type Is this a current diagnosis for this admission?: Yes Plan: Consult the cardiology (5) Acute renal failure Qualifiers: Acute renal failure type: unspecified Qualified Code(s): N17.9 - Acute kidney failure, unspecified Is this a current diagnosis for this admission?: Yes Plan: Likely due to the worsening the CHF Patient's baseline creatinine of 1.7 (6) Hypertension Qualifiers: Hypertension type: essential hypertension Qualified Code(s): I10 - Essential (primary) hypertension Is this a current diagnosis for this admission?: Yes (7) Pacemaker Is this a current diagnosis for this admission?: Yes (8) Type 2 diabetes mellitus Qualifiers: Diabetes mellitus extermination supervisor insulin use: unspecified halfway insulin use status Diabetes mellitus complication status: with unspecified complications Qualified Code(s): E11.8 - Type 2 diabetes mellitus with unspecified complications Is this a current diagnosis for this admission?: Yes (9) Pleural effusion Is this a current diagnosis for this admission?: Yes (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) Qualifiers: DVT location: lower extremity Affected thrombotic vein of extremity: femoral Laterality: right Qualified Code(s): I82.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 Is this a current diagnosis for this admission?: Yes Plan: Currently taking chronic Eliquis see the brake drum lathe operator - Time Time Spent with patient: 15-24 minutes Medications reviewed and adjusted accordingly: Yes Anticipated discharge: Other Within: Other - Plan Summary Plan Summary: Repeat the chest x-ray Continues to current medications
--- NOTE | 2019-03-12 12:41 | RADIOLOGY REPORT (SQ) ---
EXAM DESCRIPTION: CHEST 2 VIEWS COMPLETED DATE/TIME: 03/12/2019 11:54 am REASON FOR STUDY: chf/pnemonia COMPARISON: 03/08/2019 EXAM PARAMETERS: NUMBER OF VIEWS: two views TECHNIQUE: Digital Frontal and Lateral radiographic views of the chest acquired. RADIATION DOSE: NA LIMITATIONS: none FINDINGS: LUNGS AND PLEURA: Persistent left effusion. No significant improvement. Small right effu titi. MEDIASTINUM AND HILAR STRUCTURES: No masses or contour abnormalities. HEART AND VASCULAR STRUCTURES: Cardiac enlargement and vascular congestion slightly improved. BONES: No acute findings. HARDWARE: Cardiac unchanged. OTHER: No other significant finding. IMPRESSION: No significant improvement in the effusions. Mild improvement in the vascular congestion. TECHNICAL DOCUMENTATION: JOB ID: [id number] [employer]- All Rights Reserved Reading location - IP/workstation name: [email or web address]
[2019-03-12] MEDS ORDERED: LORAZEPAM 1 MG TABLET ONE (15:09)
[2019-03-12] MEDS ORDERED: LORAZEPAM 0.5 MG TABLET PO ONE (16:15)
[2019-03-12] MEDS: AZITHROMYCIN 500 MG in DEXTROSE 5%-WATER 250 ML IV SCH (17:29)
[2019-03-12] MEDS: AZITHROMYCIN 250 MG TABLET PO SCH (21:59)
[2019-03-12] MEDS: CEFTRIAXONE SODIUM 1,000 MG in DEXTROSE 5%-WATER 50 ML IV SCH (21:59)
[2019-03-12] MEDS: ATORVASTATIN CALCIUM 40 MG TABLET PO SCH (22:00)
--- NOTE | 2019-03-12 22:28 | PDOC PROGRESS REPORT ---
Subjective Progress Note for:: 03/11/19 Subjective:: Patient admitted directly by Dr Levy's office because of symptoms of progressive dyspnea, fatigue, tiredness and increasing bilateral pedal Edema. There is no history of fever, chills. Patient denied any chest pains of palpitations. Patient has a prior history of congestive heart failure, diabetes, peripheral vascular disease. Patient was last seen in my office in October 2017. His last echocardiogram was around that time. No significant symptoms of events since admission. His blood-pressure, heart rate has remained stable. Currently tolerating initial optimisation of therapy. Have added carvedilol to the regimen. Reason For Visit: CHF, PNEUMONIA Physical Exam Vital Signs: Temp Pulse Resp BP Pulse Ox 98.4 F 75 17 107/66 94 03/11/19 20:26 03/11/19 20:26 03/11/19 20:26 03/11/19 20:26 03/11/19 20:26 Intake & Output 03/10/19 03/11/19 03/12/19 06:59 06:59 06:59 Intake Total 520 537 753 Output Total 300 600 Balance 220 537 153 Weight 95.2 kg 95.2 kg Exam: GENERAL: well-nourished and in no acute distress. Alert and oriented x3 HEAD: Atraumatic, normocephalic. EYES: KAISER, sclera anicteric, conjunctiva are normal. ENT: Moist mucous membranes. No oral ulcerations or bleeding gums noted. No obvious ear, nose or throat abnormalities noted. NECK: supple without lymphadenopathy. Trachea is central. No cervical or axillary lymphadenopathy noted. Carotids are 2+, JVD mildly distended LUNGS: Bibasilar fine crackles crackles in bilateral basal dullness noted on percussion. CHEST: Palpation of the chest wall shows no significant chest wall tenderness. HEART: [place] UPWARD BOUND DIRECTOR, No PSH, 1/6 MATHEW aortic area, 1/6 trejo systolic murmur mitral area, no rubs, no gallops. ABDOMEN: Soft, no significant tenderness appreciated, normoactive bowel sounds. No guarding, no rebound. No rigidity noted . No masses appreciated. EXTREMITIES: Pedal pulses are 1-2+, no calf tenderness noted. No clubbing or cy anosis. 2-3+ pedal edema noted NEUROLOGICAL: Focused neurological exam showed no significant neurologic deficit. Normal speech, no focal weakness appreciated. PSYCH: Normal mood, normal affect. Judgment and insight within normal limits. SKIN: No significant ecchymosis, skin is noted to be warm. MUSCULOSKELETAL EXAM: No significant acute joint swelling noted. Results Laboratory Results: 03/11/19 03:54 03/11/19 03:54 03/11/19 03/11/19 03:54 03:54 WBC 2.4 L RBC 4.12 L Hgb 12.3 L Hct 38.4 MCV 93 MCH 29.8 MCHC 32.1 RDW 17.3 H Plt Count 150 Seg Neutrophils % 63.1 Lymphocytes % 21.1 Monocytes % 14.3 H Eosinophils % 1.0 Basophils % 0.5 Absolute Neutrophils 1.5 L Absolute Lymphocytes 0.5 Absolute Monocytes 0.3 Absolute Eosinophils 0.0 Absolute Basophils 0.0 Sodium 141.9 Potassium 4.1 Chloride 103 Carbon Dioxide 31 H Anion Gap 8 BUN 27 H Creatinine 1.62 H Est GFR ( Amer) 49 L Est GFR (Non-Af Amer) 41 L Glucose 76 Calcium 8.5 Magnesium 1.7 03/10/19 04:56 NT-Pro-B Natriuret Pep 23120 H EKG Comments: Telemetry shows a sense V paced rhythm. Impressions: Abdomen/Pelvis CT 03/09/19 00:00 IMPRESSION: 1. Small bilateral pleural effusions slightly larger on the left with associated mild bibasilar compressive atelectasis. 2. Since the prior study there has been development of a small left paracentral ventral umbilical hernia containing nondilated small bowel loops. There is no evidence of proximal small bowel obstruction. There is no evidence of strangulation or incarceration. There are postsurgical changes along the anterior abdominal wall in the midline and anterior peritoneal cavity. There are additional surgical clips scattered throughout the abdomen and retroperitoneum. 3. Remote left nephrectomy. 4. Nonobstructing right nephrolithiasis. 5. Remote cholecystectomy. 6. Cardiomegaly. 7. Mild subcutaneous edema. 8. Other chronic findings as described above. Assessment & Plan - Diagnosis (1) Congestive heart failure Qualifiers: Heart failure type: unspecified Heart failure chronicity: acute on chronic Qualified Code(s): I50.9 - Heart failure, unspecified Is this a current diagnosis for this admission?: Yes (2) Type 2 diabetes mellitus Qualifiers: Diabetes mellitus terminal carman insulin use: unspecified terminal carman insulin use status Diabetes mellitus complication status: with unspecified complications Qualified Code(s): E11.8 - Type 2 diabetes mellitus with unspecified complications Is this a current diagnosis for this admission?: Yes (3) Bilateral pleural effusion Is this a current diagnosis for this admission?: Yes (4) Chronic kidney disease, stage III (moderate) Is this a current diagnosis for this admission?: Yes (5) Pacemaker Is this a current diagnosis for this admission?: Yes - Notes Notes: Congestive heart failure secondary to severe systolic and also diastolic dysfunction. Operating initial dosage on Entresto and BiDil therapy. Continue diuretics. May consider holding diuretics if patient gets hypotensive. Have stopped Norvasc yesterday. This will allow us to escalate Entresto dose. Cardiomyopathy: Dilated. In the absence of chest pain, do not feel heart catheterization is indicated especially with significant other comorbid diagnoses and advanced age. We will try to optimize medical management. Will talk to patient's family regarding upgrade to a biventricular pacer defibrillator. Chronic kidney disease: Nephrology on board. Hypertension: Relatively well controlled. Pacemaker: Noted to be functioning normally. Bilateral pleural effusion: Seems to be from CHF. CXR to be repeated. - Time Time with patient: Greater than 35 minutes Medications reviewed and adjusted accordingly: Yes
--- NOTE | 2019-03-12 22:32 | PDOC PROGRESS REPORT ---
Subjective Progress Note for:: 03/12/19 Subjective:: Patient has remained stable since admission without any significant events. Today he was noted to be somewhat confused. Patient was also noted to have low blood-pressure in the afternoon therefore 2 PM dose of Lasix was not given. I have switched patient to demadex. Also again discussed DNR code status and also live vest. Ashley, patient's daughter for is the main decisionmaker has declined placement of life vest but she could not decide about DNR. She will try to make it tonight after talking with other family members and let us know tomorrow. Reason For Visit: CHF, PNEUMONIA Physical Exam Vital Signs: Temp Pulse Resp BP Pulse Ox 97.5 F 72 17 108/58 L 98 03/12/19 12:30 03/12/19 15:19 03/12/19 15:19 03/12/19 15:30 03/12/19 15:19 Intake & Output 03/11/19 03/12/19 03/13/19 06:59 06:59 06:59 Intake Total 537 803 650 Output Total 600 Balance 537 203 650 Weight 95.2 kg 89.4 kg Exam: GENERAL: well-nourished and in no acute distress. Alert and oriented x3 HEAD: Atraumatic, normocephalic. EYES: KAISER, sclera anicteric, conjunctiva are normal. ENT: Moist mucous membranes. No oral ulcerations or bleeding gums noted. No obvious ear, nose or throat abnormalities noted. NECK: supple without lymphadenopathy. Trachea is central. No cervical or axillary lymphadenopathy noted. Carotids are 2+, JVD mildly distended LUNGS: Bibasilar fine crackles crackles in bilateral basal dullness noted on percussion. CHEST: Palpation of the chest wall shows no significant chest wall tenderness. 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 ABDOMEN: Soft, no significant tenderness appreciated, normoactive bowel sounds. No guarding, no rebound. No rigidity noted . No masses appreciated. EXTREMITIES: Pedal pulses are 1-2+, no calf tenderness noted. No clubbing or cyanosis. 2-3+ pedal edema noted NEUROLOGICAL: Focused neurological exam showed no significant neurologic deficit. Normal speech, no focal weakness appreciated. PSYCH: Normal mood, normal affect. Judgment and insight within normal limits. SKIN: No significant ecchymosis, skin is noted to be warm. MUSCULOSKELETAL EXAM: No significant acute joint swelling noted. Results Laboratory Results: 03/12/19 04:44 03/12/19 04:44 03/12/19 03/12/19 04:44 04:44 WBC 3.2 L RBC 4.26 L Hgb 12.8 L Hct 39.4 MCV 93 MCH 30.0 MCHC 32.4 RDW 17.3 H Plt Count 174 Seg Neutrophils % 65.6 Lymphocytes % 22.4 Monocytes % 10.2 Eosinophils % 1.2 Basophils % 0.6 Absolute Neutrophils 2.1 Absolute Lymphocytes 0.7 Absolute Monocytes 0.3 Absolute Eosinophils 0.0 Absolute Basophils 0.0 Sodium 141.1 Potassium 4.0 Chloride 98 Carbon Dioxide 34 H Anion Gap 9 BUN 28 H Creatinine 1.71 H Est GFR ( Amer) 46 L Est GFR (Non-Af Amer) 38 L Glucose 99 Calcium 8.6 Magnesium 1.6 03/10/19 04:56 NT-Pro-B Natriuret Pep 53771 H EKG Comments: Telemetry shows a sense V paced rhythm. Impressions: Abdomen/Pelvis CT 03/09/19 00:00 IMPRESSION: 1. Small bilateral pleural effusions slightly larger on the left with associated mild bibasilar compressive atelectasis. 2. Since the prior study there has been development of a small left paracentral ventral umbilical hernia containing nondilated small bowel loops. There is no evidence of proximal small bowel obstruction. There is no evidence of strangulation or incarceration. There are postsurgical changes along the anterior abdominal wall in the midline and anterior peritoneal cavity. There are additional surgical clips scattered throughout the abdomen and retroperitoneum. 3. Remote left nephrectomy. 4. Nonobstructing right nephrolithiasis. 5. Remote cholecystectomy. 6. Cardiomegaly. 7. Mild subcutaneous edema. 8. Other chronic findings as described above. Chest X-Ray 03/12/19 00:00 IMPRESSION: No significant improvement in the effusions. Mild improvement in the vascular congestion. Assessment & Plan - Diagnosis (1) Congestive heart failure Qualifiers: Heart failure type: unspecified Heart failure chronicity: acute on chronic Qualified Code(s): I50.9 - Heart failure, unspecified Is this a current diagnosis for this admission?: Yes (2) Type 2 diabetes mellitus Qualifiers: Diabetes mellitus usp insulin use: unspecified usp insulin use status Diabetes mellitus complication status: with unspecified complications Qualified Code(s): E11.8 - Type 2 diabetes mellitus with unspecified complications Is this a current diagnosis for this admission?: Yes (3) Bilateral pleural effusion Is this a current diagnosis for this admission?: Yes (4) Chronic kidney disease, stage III (moderate) Is this a current diagnosis for this admission?: Yes (5) Pacemaker Is this a current diagnosis for this admission?: Yes - Notes Notes: Congestive heart failure secondary to severe systolic and also diastolic dysfunction. Continue Entresto and BiDil therapy. Continue Coreg. Stop lasix, start Demadex. Gradually increase enresto, Bidil, carvedilol is tolerated by blood-pressure. Cardiomyopathy: Dilated. In the absence of chest pain, do not feel heart catheterization is indicated especially with significant other comorbid diagnoses and advanced age. We will try to optimize medical management. Chronic kidney disease: Nephrology on board. Hypertension: Relatively well controlled. Pacemaker: Noted to be functioning normally. Bilateral pleural effusion: Seems to be from CHF. CXR to be repeated.
[2019-03-13] MEDS: SACUBITRIL/VALSARTAN 24 MG/26 MG TABLET PO SCH ×2 (05:30→18:10)
[2019-03-13 06:37] LABS: ABSOLUTE LYMPHOCYTES (AUTO) 0.5 10^3/uL (0.5-4.7); ABSOLUTE MONOCYTES (AUTO) 0.3 10^3/uL (0.1-1.4); ABSOLUTE NEUT (AUTO) 2.1 10^3/uL (1.7-8.2); BASOPHILS % (AUTO) 0.8 % (0-2); EOSINOPHILS % (AUTO) 1.2 % (0-6); HEMATOCRIT 38.7 % (37.9-51.0); HEMOGLOBIN 12.6 g/dL (13.5-17.0); LYMPHOCYTES % (AUTO) 17.8 % (13-45); MEAN CORPUSCULAR HGB CONC 32.6 g/dL (32.0-36.0); MEAN CORPUSCULAR VOLUME 92 fl (80-97); MONOCYTES % (AUTO) 11.1 % (3-13); PLATELET COUNT 165 10^3/uL (150-450); SEGMENTED NEUTROPHILS % (AUTO) 69.1 % (42-78); TOTAL CELLS COUNTED % (AUTO) 100 %
[2019-03-13 06:56] LABS: ANION GAP 9 (5-19); BLOOD UREA NITROGEN 28 mg/dL (7-20); CALCIUM 8.7 mg/dL (8.4-10.2); CARBON DIOXIDE 32 mmol/L (22-30); CHLORIDE 99 mmol/L (98-107); GLUCOSE 95 mg/dL (75-110); POTASSIUM 3.9 mmol/L (3.6-5.0); SODIUM 140.4 mmol/L (137-145)
[2019-03-13] MEDS: INSULIN LISPRO 100 UNIT/ML 3 ML VIAL SUBCUT SCH ×4 (08:38→23:01)
--- NOTE | 2019-03-13 09:30 | PDOC PROGRESS REPORT ---
Subjective Progress Note for:: 03/13/19 Subjective:: Patient is currently doing well Patient is denied any chest pain to than any shortness of the breath Patient other than that no other symptoms Chest x-ray is persistent with a left-sided pleural effusions Reason For Visit: CHF, PNEUMONIA Physical Exam Vital Signs: Temp Pulse Resp BP Pulse Ox 97.6 F 76 16 102/63 99 03/13/19 07:50 03/13/19 08:21 03/13/19 08:21 03/13/19 07:50 03/13/19 08:21 Intake & Output 03/12/19 03/13/19 03/14/19 06:59 06:59 06:59 Intake Total 803 1020 Output Total 600 200 Balance 203 820 Weight 89.4 kg 91.4 kg General appearance: PRESENT: no acute distress, well-developed, well-nourished Head exam: PRESENT: atraumatic, normocephalic Eye exam: PRESENT: conjunctiva pink, EOMI, PERRLA. ABSENT: scleral icterus Ear exam: PRESENT: normal external ear exam Mouth exam: PRESENT: moist, tongue midline Neck exam: PRESENT: full ROM. ABSENT: carotid bruit, JVD, lymphadenopathy, thyromegaly Respiratory exam: PRESENT: clear to auscultation ana Cardiovascular exam: PRESENT: RRR. ABSENT: diastolic murmur, rubs, systolic murmur Vascular exam: PRESENT: normal capillary refill GI/Abdominal exam: PRESENT: normal bowel sounds, soft. ABSENT: distended, guarding, mass, organolmegaly, rebound, tenderness Rectal exam: PRESENT: deferred Extremities exam: PRESENT: pedal edema Neurological exam: PRESENT: alert, awake, oriented to person, oriented to place, oriented to time, oriented to situation, CN II-XII grossly intact. ABSENT: motor sensory deficit Psychiatric exam: PRESENT: appropriate affect, normal mood. ABSENT: homicidal ideation, suicidal ideation Skin exam: PRESENT: dry, intact, warm. ABSENT: cyanosis, rash Results Laboratory Results: 03/13/19 06:15 03/13/19 06:15 03/13/19 03/13/19 06:15 06:15 WBC 3.0 L RBC 4.20 L Hgb 12.6 L Hct 38.7 MCV 92 MCH 30.0 MCHC 32.6 RDW 17.0 H Plt Count 165 Seg Neutrophils % 69.1 Lymphocytes % 17.8 Monocytes % 11.1 Eosinophils % 1.2 Basophils % 0.8 Absolute Neutrophils 2.1 Absolute Lymphocytes 0.5 Absolute Monocytes 0.3 Absolute Eosinophils 0.0 Absolute Basophils 0.0 Sodium 140.4 Potassium 3.9 Chloride 99 Carbon Dioxide 32 H Anion Gap 9 BUN 28 H Creatinine 1.68 H Est GFR ( Amer) 47 L Est GFR (Non-Af Amer) 39 L Glucose 95 Calcium 8.7 03/10/19 04:56 NT-Pro-B Natriuret Pep [id number] H Impressions: Abdomen/Pelvis CT 03/09/19 00:00 IMPRESSION: 1. Small bilateral pleural effusions slightly larger on the left with associated mild bibasilar compressive atelectasis. 2. Since the prior study there has been development of a small left paracentral ventral umbilical hernia containing nondilated small bowel loops. There is no evidence of proximal small bowel obstruction. There is no evidence of strangulation or incarceration. There are postsurgical changes along the anterior abdominal wall in the midline and anterior peritoneal cavity. There are additional surgical clips scattered throughout the abdomen and retroperitoneum. 3. Remote left nephrectomy. 4. Nonobstructing right nephrolithiasis. 5. Remote cholecystectomy. 6. Cardiomegaly. 7. Mild subcutaneous edema. 8. Other chronic findings as described above. Chest X-Ray 03/12/19 00:00 IMPRESSION: No significant improvement in the effusions. Mild improvement in the vascular congestion. Assessment & Plan - Diagnosis (1) Congestive heart failure Qualifiers: Heart failure type: unspecified Heart failure chronicity: acute on chronic Qualified Code(s): I50.9 - Heart failure, unspecified Is this a current diagnosis for this admission?: Yes Plan: Continues to start torsemide as per cardiology (2) Pneumonia Qualifiers: Pneumonia type: due to unspecified organism Is this a current diagnosis for this admission?: Yes Plan: Repeat the chest x-ray (3) Hematuria Qualifiers: Hematuria type: unspecified type Qualified Code(s): R31.9 - Hematuria, unspecified Is this a current diagnosis for this admission?: Yes Plan: Due to most likely possible UTI and currently patient on anticoagulations Currently not actively bleeding Patient have outpatient appointment to see the urology (4) Coronary artery disease Qualifiers: Coronary Disease-Associated Artery/Lesion type: unspecified vessel or lesion type Is this a current diagnosis for this admission?: Yes Plan: Consult the cardiology (5) Acute renal failure Qualifiers: Acute renal failure type: unspecified Qualified Code(s): N17.9 - Acute kidney failure, unspecified Is this a current diagnosis for this admission?: Yes Plan: Likely due to the worsening the CHF Patient's baseline creatinine of 1.7 (6) Hypertension Qualifiers: Hypertension type: essential hypertension Qualified Code(s): I10 - Essential (primary) hypertension Is this a current diagnosis for this admission?: Yes (7) Pacemaker Is this a current diagnosis for this admission?: Yes (8) Type 2 diabetes mellitus Qualifiers: Diabetes mellitus senior care insulin use: unspecified senior care insulin use status Diabetes mellitus complication status: with unspecified complications Qualified Code(s): E11.8 - Type 2 diabetes mellitus with unspecified complic ations Is this a current diagnosis for this admission?: Yes (9) Pleural effusion Is this a current diagnosis for this admission?: Yes Plan: We will get the ultrasound for the chest (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) Qualifiers: DVT location: lower extremity Affected thrombotic vein of extremity: femoral Laterality: right Qualified Code(s): I82.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 Is this a current diagnosis for this admission?: Yes Plan: Currently taking chronic Eliquis see the channel rougher - Time Time Spent with patient: 15-24 minutes Medications reviewed and adjusted accordingly: Yes Anticipated discharge: SNF Within: Other - Plan Summary Plan Summary: We will get the chest ultrasound to see whether patients need a thoracocentesis Continues to follow with the cardiology Discussed with the family patient's needs to go to the rehab facilities discharge plan is to be involved
[2019-03-13] MEDS: APIXABAN 2.5 MG TABLET PO SCH ×2 (09:56→18:05)
[2019-03-13] MEDS: ISOSORB DINIT/HYDRALAZINE HCL 20-37.5 MG TABLET PO SCH ×2 (10:01→22:59)
[2019-03-13] MEDS: DOCUSATE SODIUM 100 MG CAPSULE PO SCH ×2 (11:28→18:10)
[2019-03-13] MEDS: TAMSULOSIN HCL 0.4 MG CAP.SR.24H PO SCH (11:28)
[2019-03-13] MEDS: FAMOTIDINE 20 MG TABLET PO SCH ×2 (11:28→23:00)
[2019-03-13] MEDS: TORSEMIDE 20 MG TABLET PO SCH (11:28)
[2019-03-13] MEDS: SITAGLIPTIN PHOSPHATE 50 MG TABLET PO SCH (11:28)
[2019-03-13] MEDS: CARVEDILOL 3.125 MG TABLET PO SCH ×2 (11:29→23:00)
--- NOTE | 2019-03-13 13:55 | RADIOLOGY REPORT (SQ) ---
EXAM DESCRIPTION: U/S CHEST COMPLETED DATE/TIME: 03/13/2019 1:28 pm REASON FOR STUDY: left pleural effusion COMPARISON: None. TECHNIQUE: Dynamic and static grayscale images acquired of the localized site of clinical concern an d recorded on PACS. Additional selected color Doppler and spectral images recorded. SITE OF CONCERN: Ultrasound chest LIMITATIONS: None. FINDINGS: Bilateral pleural effusions are visualized, moderate on the left and small on the right. IMPRESSION: 1. Bilateral pleural effusions, left greater than right. TECHNICAL DOCUMENTATION: JOB ID: [id number] [employer]- All Rights Reserved Reading location - IP/workstation name: [email or web address]
[2019-03-13] MEDS: AZITHROMYCIN 500 MG in DEXTROSE 5%-WATER 250 ML IV SCH (18:09)
--- NOTE | 2019-03-13 18:11 | PDOC PROGRESS REPORT ---
Subjective Progress Note for:: 03/13/19 Subjective:: Patient has remained stable since admission without any significant events. Patient family has made a decision for patient not to wear his LifeVest. They have also made patient a DNR. Patient is noted to have moderate pleural effusion on the left side and a small effusion on the right side. Patient looks comfortable without any shortness of breath. His pedal edema has almost resolved. Reason For Visit: CHF, PNEUMONIA Physical Exam Vital Signs: Temp Pulse Resp BP Pulse Ox 97.6 F 76 16 102/63 98 03/13/19 07:50 03/13/19 08:21 03/13/19 08:21 03/13/19 07:50 03/13/19 16:05 Intake & Output 03/12/19 03/13/19 03/14/19 06:59 06:59 06:59 Intake Total 803 1020 Output Total 600 200 Balance 203 820 Weight 89.4 kg 91.4 kg Exam: GENERAL: well-nourished and in no acute distress. Alert and mentation not checked today. HEAD: Atraumatic, normocephalic. EYES: [place], sclera anicteric, conjunctiva are normal. ENT: Moist mucous membranes. No oral ulcerations or bleeding gums noted. No obvious ear, nose or throat abnormalities noted. NECK: supple without lymphadenopathy. Trachea is central. No cervical or axillary lymphadenopathy noted. Carotids are 2+, JVD WNL LUNGS: Diminished breath sounds both bases left more than right. Mild bilateral dullness noted on percussion. CHEST: Palpation of the chest wall shows no significant chest wall tenderness. HEART: Gail TITLE CURATOR, No PSH, 1/6 MATHEW aortic area, 1/6 trejo systolic murmur mitral area, no rubs, no gallops. ABDOMEN: Soft, no significant tenderness appreciated, normoactive bowel sounds. No guarding, no rebound. No rigidity noted . No masses appreciated. EXTREMITIES: Pedal pulses are 1-2+, no calf tenderness noted. No clubbing or cyanosis. Trace to 1+ pedal edema noted NEUROLOGICAL: Focused neurological exam showed no significant neurologic deficit. Normal speech, no focal weakness appreciated. PSYCH: Normal mood, normal affect. Judgment and insight within normal limits. SKIN: No significant ecchymosis, skin is noted to be warm. MUSCULOSKELETAL EXAM: No significant acute joint swelling noted. Results Laboratory Results: 03/13/19 06:15 03/13/19 06:15 03/13/19 03/13/19 06:15 06:15 WBC 3.0 L RBC 4.20 L Hgb 12.6 L Hct 38.7 MCV 92 MCH 30.0 MCHC 32.6 RDW 17.0 H Plt Count 165 Seg Neutrophils % 69.1 Lymphocytes % 17.8 Monocytes % 11.1 Eosinophils % 1.2 Basophils % 0.8 Absolute Neutrophils 2.1 Absolute Lymphocytes 0.5 Absolute Monocytes 0.3 Absolute Eosinophils 0.0 Absolute Basophils 0.0 Sodium 140.4 Potassium 3.9 Chloride 99 Carbon Dioxide 32 H Anion Gap 9 BUN 28 H Creatinine 1.68 H Est GFR ( Amer) 47 L Est GFR (Non-Af Amer) 39 L Glucose 95 Calcium 8.7 03/10/19 04:56 NT-Pro-B Natriuret Pep [id number] H EKG Comments: Showed AV paced rhythm. Impressions: Abdomen/Pelvis CT 03/09/19 00:00 IMPRESSION: 1. Small bilateral pleural effusions slightly larger on the left with associated mild bibasilar compressive atelectasis. 2. Since the prior study there has been development of a small left paracentral ventral umbilical hernia containing nondilated small bowel loops. There is no evidence of proximal small bowel obstruction. There is no evidence of strangulation or incarceration. There are postsurgical changes along the anterior abdominal wall in the midline and anterior peritoneal cavity. There are additional surgical clips scattered throughout the abdomen and retroperitoneum. 3. Remote left nephrectomy. 4. Nonobstructing right nephrolithiasis. 5. Remote cholecystectomy. 6. Cardiomegaly. 7. Mild subcutaneous edema. 8. Other chronic findings as described above. Chest X-Ray 03/12/19 00:00 IMPRESSION: No significant improvement in the effusions. Mild improvement in the vascular congestion. Chest Ultrasound 03/13/19 00:00 IMPRESSION: 1. Bilateral pleural effusions, left greater than right. Assessment & Plan - Diagnosis (1) Congestive heart failure Qualifiers: Heart failure type: unspecified Heart failure chronicity: acute on chronic Qualified Code(s): I50.9 - Heart failure, unspecified Is this a current diagnosis for this admission?: Yes Plan: This has improved. Continue management plans outlined yesterday. (2) Type 2 diabetes mellitus Qualifiers: Diabetes mellitus retirement insulin use: unspecified retirement insulin use status Diabetes mellitus complication status: with unspecified complications Qualified Code(s): E11.8 - Type 2 diabetes mellitus with unspecified complications Is this a current diagnosis for this admission?: Yes Plan: This is being well managed by the supervisor respiratory. (3) Bilateral pleural effusion Is this a current diagnosis for this admission?: Yes Plan: It might take a little bit almost about a month for pleural effusion to gr adually get reabsorbed. No plans for thoracentesis. Clinically, CHF related pleural effusion therefore no need for diagnostic thoracentesis. (4) Chronic kidney disease, stage III (moderate) Is this a current diagnosis for this admission?: Yes Plan: This has been stable. (5) Pacemaker Is this a current diagnosis for this admission?: Yes Plan: Shows normal functioning. - Notes Notes: Agree with rehab referral. Have written order for OT PT consult and Rx as needed. Patient will benefit from very close cardiology follow-up. Will be happy to provide this as an outpatient. - Time Time with patient: Greater than 35 minutes Medications reviewed and adjusted accordingly: Yes
[2019-03-13] MEDS: AZITHROMYCIN 250 MG TABLET PO SCH (23:00)
[2019-03-13] MEDS: CEFTRIAXONE SODIUM 1,000 MG in DEXTROSE 5%-WATER 50 ML IV SCH (23:00)
[2019-03-13] MEDS: ATORVASTATIN CALCIUM 40 MG TABLET PO SCH (23:00)
[2019-03-14 06:48] LABS: ABSOLUTE EOSINOPHILS # (AUTO) 0.1 10^3/uL (0.0-0.6); ABSOLUTE LYMPHOCYTES (AUTO) 0.7 10^3/uL (0.5-4.7); ABSOLUTE MONOCYTES (AUTO) 0.4 10^3/uL (0.1-1.4); ABSOLUTE NEUT (AUTO) 2.5 10^3/uL (1.7-8.2); BASOPHILS % (AUTO) 0.5 % (0-2); HEMATOCRIT 41.4 % (37.9-51.0); HEMOGLOBIN 13.3 g/dL (13.5-17.0); LYMPHOCYTES % (AUTO) 18.4 % (13-45); MEAN CORPUSCULAR HEMOGLOBIN 29.7 pg (27.0-33.4); MEAN CORPUSCULAR HGB CONC 32.1 g/dL (32.0-36.0); MEAN CORPUSCULAR VOLUME 93 fl (80-97); MONOCYTES % (AUTO) 10.9 % (3-13); PLATELET COUNT 134 10^3/uL (150-450); RED BLOOD COUNT 4.48 10^6/uL (4.35-5.55); RED CELL DISTRIBUTION WIDTH 17.3 % (11.5-14.0); SEGMENTED NEUTROPHILS % (AUTO) 68.2 % (42-78); TOTAL CELLS COUNTED % (AUTO) 100 %; WHITE BLOOD COUNT 3.7 10^3/uL (4.0-10.5)
[2019-03-14] MEDS: SACUBITRIL/VALSARTAN 24 MG/26 MG TABLET PO SCH ×2 (06:54→17:34)
[2019-03-14 08:20] LABS: ANION GAP 6 (5-19); BLOOD UREA NITROGEN 28 mg/dL (7-20); CALCIUM 8.8 mg/dL (8.4-10.2); CARBON DIOXIDE 36 mmol/L (22-30); CHLORIDE 98 mmol/L (98-107); GLUCOSE 86 mg/dL (75-110); POTASSIUM 4.1 mmol/L (3.6-5.0); SODIUM 140.2 mmol/L (137-145)
[2019-03-14] MEDS: INSULIN LISPRO 100 UNIT/ML 3 ML VIAL SUBCUT SCH ×4 (08:47→21:54)
--- NOTE | 2019-03-14 09:39 | PDOC PROGRESS REPORT ---
Subjective Progress Note for:: 03/14/19 Subjective:: Patient is currently doing well Patient is denied any chest pain to than any shortness of the breath Patient have a known obstructing hernia is present in abdomen wall Reason For Visit: CHF, PNEUMONIA Physical Exam Vital Signs: Temp Pulse Resp BP Pulse Ox 98.6 F 86 16 94/59 L 99 03/14/19 08:40 03/14/19 08:40 03/14/19 08:40 03/14/19 08:40 03/14/19 08:40 Intake & Output 03/13/19 03/14/19 03/15/19 06:59 06:59 06:59 Intake Total 1020 237 300 Output Total 200 Balance 820 237 300 Weight 91.4 kg General appearance: PRESENT: no acute distress, well-developed, well-nourished Head exam: PRESENT: atraumatic, normocephalic Eye exam: PRESENT: conjunctiva pink, EOMI, PERRLA. ABSENT: scleral icterus Ear exam: PRESENT: normal external ear exam Mouth exam: PRESENT: moist, tongue midline Neck exam: PRESENT: full ROM. ABSENT: carotid bruit, JVD, lymphadenopathy, thyromegaly Respiratory exam: PRESENT: clear to auscultation ana Cardiovascular exam: PRESENT: RRR. ABSENT: diastolic murmur, rubs, systolic murmur Vascular exam: PRESENT: normal capillary refill GI/Abdominal exam: PRESENT: hernia, normal bowel sounds, soft. ABSENT: distended, guarding, mass, organolmegaly, rebound, tenderness Rectal exam: PRESENT: deferred Extremities exam: ABSENT: pedal edema Neurological exam: PRESENT: alert, awake, oriented to person, oriented to place, oriented to time, oriented to situation, CN II-XII grossly intact. ABSENT: motor sensory deficit Psychiatric exam: PRESENT: appropriate affect, normal mood. ABSENT: homicidal ideation, suicidal ideation Skin exam: PRESENT: dry, intact, warm. ABSENT: cyanosis, rash Results Laboratory Results: 03/14/19 05:52 03/14/19 07:18 03/14/19 03/14/19 03/14/19 05:52 05:52 07:18 WBC 3.7 L RBC 4.48 Hgb 13.3 L Hct 41.4 MCV 93 MCH 29.7 MCHC 32.1 RDW 17.3 H Plt Count 134 L Seg Neutrophils % 68.2 Lymphocytes % 18.4 Monocytes % 10.9 Eosinophils % 2.0 Basophils % 0.5 Absolute Neutrophils 2.5 Absolute Lymphocytes 0.7 Absolute Monocytes 0.4 Absolute Eosinophils 0.1 Absolute Basophils 0.0 Sodium Cancelled 140.2 Potassium Cancelled 4.1 Chloride Cancelled 98 Carbon Dioxide Cancelled 36 H Anion Gap Cancelled 6 BUN Cancelled 28 H Creatinine Cancelled 1.87 H Est GFR ( Amer) Cancelled 42 L Est GFR (Non-Af Amer) Cancelled 34 L Glucose Cancelled 86 Calcium Cancelled 8.8 03/10/19 04:56 NT-Pro-B Natriuret Pep [id number] H Impressions: Abdomen/Pelvis CT 03/09/19 00:00 IMPRESSION: 1. Small bilateral pleural effusions slightly larger on the left with associated mild bibasilar compressive atelectasis. 2. Since the prior study there has been development of a small left paracentral ventral umbilical hernia containing nondilated small bowel loops. There is no evidence of proximal small bowel obstruction. There is no evidence of strangulation or incarceration. There are postsurgical changes along the anterior abdominal wall in the midline and anterior peritoneal cavity. There are additional surgical clips scattered throughout the abdomen and retroperitoneum. 3. Remote left nephrectomy. 4. Nonobstructing right nephrolithiasis. 5. Remote cholecystectomy. 6. Cardiomegaly. 7. Mild subcutaneous edema. 8. Other chronic findings as described above. Chest X-Ray 03/12/19 00:00 IMPRESSION: No significant improvement in the effusions. Mild improvement in the vascular congestion. Chest Ultrasound 03/13/19 00:00 IMPRESSION: 1. Bilateral pleural effusions, left greater than right. Assessment & Plan - Diagnosis (1) Congestive heart failure Qualifiers: Heart failure type: unspecified Heart failure chronicity: acute on chronic Qualified Code(s): I50.9 - Heart failure, unspecified Is this a current diagnosis for this admission?: Yes Plan: Continues to start torsemide as per cardiology (2) Pneumonia Qualifiers: Pneumonia type: due to unspecified organism Is this a current diagnosis for this admission?: Yes Plan: Repeat the chest x-ray (3) Hematuria Qualifiers: Hematuria type: unspecified type Qualified Code(s): R31.9 - Hematuria, unspecified Is this a current diagnosis for this admission?: Yes Plan: Due to most likely possible UTI and currently patient on anticoagulations Currently not actively bleeding Patient have outpatient appointment to see the urology (4) Coronary artery disease Qualifiers: Coronary Disease-Associated Artery/Lesion type: unspecified vessel or lesion type Is this a current diagnosis for this admission?: Yes Plan: Consult the cardiology (5) Acute renal failure Qualifiers: Acute renal failure type: unspecified Qualified Code(s): N17.9 - Acute kidney failure, unspecified Is this a current diagnosis for this admission?: Yes Plan: Likely due to the worsening the CHF Patient's baseline creatinine of 1.7 (6) Hypertension Qualifiers: Hypertension type: essential hypertension Qualified Code(s): I10 - Essential (primary) hypertension Is this a current diagnosis for this admission?: Yes (7) Pacemaker Is this a current diagnosis for this admission?: Yes (8) Type 2 diabetes mellitus Qualifiers: Diabetes mellitus prison insulin use: unspecified prison insulin use status Diabetes mellitus complication status: with unspecified complications Qualified Code(s): E11.8 - Type 2 diabetes mellitus with unspecified complications Is this a current diagnosis for this admission?: Yes (9) Pleural effusion Is this a current diagnosis for this admission?: Yes Plan: Discussed with the needle bar molder Continues to monitor is not in distress no need for any thoracocentesis (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) Qualifiers: DVT location: lower extremity Affected thrombotic vein of extremity: femoral Laterality: right Qualified Code(s): I82.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 Is this a current diagnosis for this admission?: Yes Plan: Currently taking chronic Eliquis see the restaurant maintenance technician (11) Abdominal wall hernia Is this a current diagnosis for this admission?: Yes Plan: Consult the general surgery for further any opinion - Time Time Spent with patient: 15-24 minutes Medications reviewed and adjusted accordingly: Yes Anticipated discharge: SNF Within: within 24 hours
[2019-03-14] MEDS: ISOSORB DINIT/HYDRALAZINE HCL 20-37.5 MG TABLET PO SCH (11:50)
[2019-03-14] MEDS: DOCUSATE SODIUM 100 MG CAPSULE PO SCH ×2 (11:50→17:31)
[2019-03-14] MEDS: CARVEDILOL 3.125 MG TABLET PO SCH ×2 (11:51→21:53)
[2019-03-14] MEDS: APIXABAN 2.5 MG TABLET PO SCH ×2 (11:54→17:34)
[2019-03-14] MEDS: TORSEMIDE 20 MG TABLET PO SCH ×2 (11:54→12:08)
[2019-03-14] MEDS: SITAGLIPTIN PHOSPHATE 50 MG TABLET PO SCH (11:55)
[2019-03-14] MEDS: TAMSULOSIN HCL 0.4 MG CAP.SR.24H PO SCH (11:55)
[2019-03-14] MEDS: FAMOTIDINE 20 MG TABLET PO SCH ×2 (11:55→21:54)
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
[2019-03-14] MEDS: AZITHROMYCIN 500 MG in DEXTROSE 5%-WATER 250 ML IV SCH ×2 (17:34→17:47)
[2019-03-14] MEDS: AZITHROMYCIN 250 MG TABLET PO SCH ×2 (21:53→21:54)
[2019-03-14] MEDS: ATORVASTATIN CALCIUM 40 MG TABLET PO SCH (21:54)
[2019-03-14] MEDS: CEFUROXIME 250 MG TABLET PO SCH (21:54)
[2019-03-14] MEDS: CEFTRIAXONE SODIUM 1,000 MG in DEXTROSE 5%-WATER 50 ML IV SCH (21:55)
[2019-03-15 05:30] LABS: CHLORIDE 97 mmol/L (98-107); POTASSIUM 3.8 mmol/L (3.6-5.0); SODIUM 139.9 mmol/L (137-145)
[2019-03-15] MEDS: SACUBITRIL/VALSARTAN 24 MG/26 MG TABLET PO SCH ×2 (06:08→17:58)
[2019-03-15 06:22] LABS: ANION GAP 9 (5-19); BLOOD UREA NITROGEN 28 mg/dL (7-20); CALCIUM 8.6 mg/dL (8.4-10.2); CARBON DIOXIDE 34 mmol/L (22-30); GLUCOSE 96 mg/dL (75-110)
[2019-03-15] MEDS: INSULIN LISPRO 100 UNIT/ML 3 ML VIAL SUBCUT SCH ×4 (08:27→23:22)
--- NOTE | 2019-03-15 09:06 | PDOC PROGRESS REPORT ---
Subjective Progress Note for:: 03/14/19 Subjective:: Patient has remained stable since admission without any significant events. Patient family has made a decision for patient not to wear his LifeVest. They have also made patient a DNR. Patient is noted to have moderate pleural effusion on the left side and a small effusion on the right side. Patient looks comfortable without any shortness of breath. His pedal edema has almost resolved. Patient was noted to have problems with low blood pressure but asymptomatic. Some cardiac medications were held. Diuretics dose will be reduced. Patient is denying any chest arm or leg discomfort. He is noted to lay flat in bed comfortable without any shortness of breath. OT PT orders were written in the chart. Reason For Visit: CHF, PNEUMONIA Physical Exam Vital Signs: Temp Pulse Resp BP Pulse Ox 98.1 F 73 16 106/63 95 03/15/19 04:12 03/15/19 04:12 03/14/19 15:48 03/15/19 04:12 03/15/19 04:12 Intake & Output 03/14/19 03/15/19 03/16/19 06:59 06:59 06:59 Intake Total 237 300 Balance 237 300 Weight 89.6 kg Exam: GENERAL: well-nourished and in no acute distress. Alert and oriented x3 with mild intermittent confusion. HEAD: Atraumatic, normocephalic. EYES: KAISER, sclera anicteric, conjunctiva are normal. ENT: Moist mucous membranes. No oral ulcerations or bleeding gums noted. No obvious ear, nose or throat abnormalities noted. NECK: supple without lymphadenopathy. Trachea is central. No cervical or axillary lymphadenopathy noted. Carotids are 2+, JVD WNL LUNGS: Mild bilateral basal left more than right dullness noted on percussion. Bibasilar fine crackles are noted. CHEST: Palpation of the chest wall shows no significant chest wall tenderness. 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 ABDOMEN: Soft, no significant tenderness appreciated, normoactive bowel sounds. No guarding, no rebound. No rigidity noted . No masses appreciated. EXTREMITIES: Pedal pulses are 1-2+, no calf tenderness noted. No clubbing or cya nosis. Trace pedal edema noted NEUROLOGICAL: Focused neurological exam showed no significant neurologic deficit. Normal speech, no focal weakness appreciated. PSYCH: Normal mood, normal affect. Judgment and insight within normal limits. SKIN: No significant ecchymosis, skin is noted to be warm. MUSCULOSKELETAL EXAM: No significant acute joint swelling noted. Results Laboratory Results: 03/14/19 05:52 03/15/19 04:48 03/15/19 04:48 Sodium 139.9 Potassium 3.8 Chloride 97 L Carbon Dioxide 34 H Anion Gap 9 BUN 28 H Creatinine 1.80 H Est GFR ( Amer) 43 L Est GFR (Non-Af Amer) 36 L Glucose 96 Calcium 8.6 03/09/19 19:49 Blood Blood Culture - Final NO GROWTH IN 5 DAYS 03/09/19 20:27 Blood Blood Culture - Final NO GROWTH IN 5 DAYS 03/10/19 04:56 NT-Pro-B Natriuret Pep [id number] H EKG Comments: Shows a sensed V paced and AV paced rhythm. Impressions: Abdomen/Pelvis CT 03/09/19 00:00 IMPRESSION: 1. Small bilateral pleural effusions slightly larger on the left with associated mild bibasilar compressive atelectasis. 2. Since the prior study there has been development of a small left paracentral ventral umbilical hernia containing nondilated small bowel loops. There is no evidence of proximal small bowel obstruction. There is no evidence of strangulation or incarceration. There are postsurgical changes along the anterior abdominal wall in the midline and anterior peritoneal cavity. There are additional surgical clips scattered throughout the abdomen and retroperitoneum. 3. Remote left nephrectomy. 4. Nonobstructing right nephrolithiasis. 5. Remote cholecystectomy. 6. Cardiomegaly. 7. Mild subcutaneous edema. 8. Other chronic findings as described above. Chest X-Ray 03/12/19 00:00 IMPRESSION: No significant improvement in the effusions. Mild improvement in the vascular congestion. Chest Ultrasound 03/13/19 00:00 IMPRESSION: 1. Bilateral pleural effusions, left greater than right. Assessment & Plan - Diagnosis (1) Congestive heart failure Qualifiers: Heart failure type: unspecified Heart failure chronicity: acute on chronic Qualified Code(s): I50.9 - Heart failure, unspecified Is this a current diagnosis for this admission?: Yes (2) Type 2 diabetes mellitus Qualifiers: Diabetes mellitus senior living insulin use: unspecified senior living insulin use status Diabetes mellitus complication status: with unspecified complications Qualified Code(s): E11.8 - Type 2 diabetes mellitus with unspecified comp lications Is this a current diagnosis for this admission?: Yes (3) Bilateral pleural effusion Is this a current diagnosis for this admission?: Yes (4) Chronic kidney disease, stage III (moderate) Is this a current diagnosis for this admission?: Yes (5) Pacemaker Is this a current diagnosis for this admission?: Yes - Notes Notes: Continue plans at outlined previously. Because of intermittent low blood pressure will reduce diuretics. Have discussed medications with Dr. Levy. Will stop BiDil. Patient will benefit from some general strengthening exercises. This was talked about with the nurses and family members. Hopefully OT PT will help. - Time Time with patient: 15-25 minutes Medications reviewed and adjusted accordingly: Yes
--- NOTE | 2019-03-15 09:08 | PDOC PROGRESS REPORT ---
Subjective Progress Note for:: 03/15/19 Subjective:: No changes. Patient actually looks better. Is smiling today. Patient's daughter at bedside. Patient has remained stable since admission without any significant events. Patient family has made a decision for patient not to wear his LifeVest. They have also made patient a DNR. Patient is noted to have moderate pleural effusion on the left side and a small effusion on the right side. Patient looks comfortable without any shortness of breath. His pedal edema has almost resolved. Patient was noted to have problems with low blood pressure but asymptomatic. So me cardiac medications were held. Diuretics dose will be reduced. Patient is denying any chest arm or leg discomfort. He is noted to lay flat in bed comfortable without any shortness of breath. OT PT orders were written in the chart. Reason For Visit: CHF, PNEUMONIA Physical Exam Vital Signs: Temp Pulse Resp BP Pulse Ox 98.1 F 73 16 106/63 95 03/15/19 04:12 03/15/19 04:12 03/14/19 15:48 03/15/19 04:12 03/15/19 04:12 Intake & Output 03/14/19 03/15/19 03/16/19 06:59 06:59 06:59 Intake Total 237 300 Balance 237 300 Weight 89.6 kg Exam: GENERAL: well-nourished and in no acute distress. Alert and oriented x3 HEAD: Atraumatic, normocephalic. EYES: KAISER, sclera anicteric, conjunctiva are normal. ENT: Moist mucous membranes. No oral ulcerations or bleeding gums noted. No obvious ear, nose or throat abnormalities noted. NECK: supple without lymphadenopathy. Trachea is central. No cervical or axillary lymphadenopathy noted. Carotids are 2+, JVD WNL LUNGS: Breath sounds clear bilaterally. Minimal dullness noted on percussion. CHEST: Palpation of the chest wall shows no significant chest wall tenderness. 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 ABDOMEN: Soft, no significant tenderness appreciated, normoactive bowel sounds. No guarding, no rebound. No rigidity noted . No masses appreciated. EXTREMITIES: Pedal pulses are 1-2+, no calf tenderness noted. No clubbing or cyanosis. negative pedal edema noted NEUROLOGICAL: Focused neurological exam showed no significant neurologic deficit. Normal speech, no focal weakness appreciated. PSYCH: Normal mood, normal affect. Judgment and insight within normal limits. SKIN: No significant ecchymosis, skin is noted to be warm. MUSCULOSKELETAL EXAM: No significant acute joint swelling noted. Results Laboratory Results: 03/14/19 05:52 03/15/19 04:48 03/15/19 04:48 Sodium 139.9 Potassium 3.8 Chloride 97 L Carbon Dioxide 34 H Anion Gap 9 BUN 28 H Creatinine 1.80 H Est GFR ( Amer) 43 L Est GFR (Non-Af Amer) 36 L Glucose 96 Calcium 8.6 03/09/19 19:49 Blood Blood Culture - Final NO GROWTH IN 5 DAYS 03/09/19 20:27 Blood Blood Culture - Final NO GROWTH IN 5 DAYS 03/10/19 04:56 NT-Pro-B Natriuret Pep [id number] H EKG Comments: A sensed V paced and AV paced rhythm. No significant arrhythmias noted. Impressions: Abdomen/Pelvis CT 03/09/19 00:00 IMPRESSION: 1. Small bilateral pleural effusions slightly larger on the left with associated mild bibasilar compressive atelectasis. 2. Since the prior study there has been development of a small left paracentral ventral umbilical hernia containing nondilated small bowel loops. There is no evidence of proximal small bowel obstruction. There is no evidence of strangulation or incarceration. There are postsurgical changes along the anterior abdominal wall in the midline and anterior peritoneal cavity. There are additional surgical clips scattered throughout the abdomen and retroperitoneum. 3. Remote left nephrectomy. 4. Nonobstructing right nephrolithiasis. 5. Remote cholecystectomy. 6. Cardiomegaly. 7. Mild subcutaneous edema. 8. Other chronic findings as described above. Chest X-Ray 03/12/19 00:00 IMPRESSION: No significant improvement in the effusions. Mild improvement in the vascular congestion. Chest Ultrasound 03/13/19 00:00 IMPRESSION: 1. Bilateral pleural effusions, left greater than right. 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 Recommend OT PT. Patient's family could walk with the patient with nurses permission. Reviewed surgeon's note. Agree that medical management and conservative management for reducible umbilical hernia for the time being. Will increase carvedilol to 6.25 p.o. twice daily. This was the minimum dose which was used in the carvedilol trial shown to improve EF and and improve overall prognosis. - Time Time with patient: 15-25 minutes
--- NOTE | 2019-03-15 10:16 | PDOC PROGRESS REPORT ---
Subjective Progress Note for:: 03/15/19 Subjective:: Patient is currently doing well Denied any chest pain to than any shortness of the breath Patient seen by general surgery is no need for do anything for the hernia Discussed with the cardiology and suggest to continues the small dose of Demadex and continues to current medications Reason For Visit: CHF, PNEUMONIA Physical Exam Vital Signs: Temp Pulse Resp BP Pulse Ox 98.1 F 73 16 106/63 95 03/15/19 04:12 03/15/19 04:12 03/14/19 15:48 03/15/19 04:12 03/15/19 04:12 Intake & Output 03/14/19 03/15/19 03/16/19 06:59 06:59 06:59 Intake Total 237 300 Balance 237 300 Weight 89.6 kg General appearance: PRESENT: no acute distress, well-developed, well-nourished Head exam: PRESENT: atraumatic, normocephalic Eye exam: PRESENT: conjunctiva pink, EOMI, PERRLA. ABSENT: scleral icterus Ear exam: PRESENT: normal external ear exam Mouth exam: PRESENT: moist, tongue midline Neck exam: PRESENT: full ROM. ABSENT: carotid bruit, JVD, lymphadenopathy, thyromegaly Respiratory exam: PRESENT: clear to auscultation ana Cardiovascular exam: PRESENT: RRR. ABSENT: diastolic murmur, rubs, systolic murmur Vascular exam: PRESENT: normal capillary refill GI/Abdominal exam: PRESENT: normal bowel sounds, soft. ABSENT: distended, guarding, mass, organolmegaly, rebound, tenderness Rectal exam: PRESENT: deferred Extremities exam: PRESENT: pedal edema Neurological exam: PRESENT: alert, awake, oriented to person, oriented to place, oriented to time, oriented to situation, CN II-XII grossly intact. ABSENT: motor sensory deficit Psychiatric exam: PRESENT: appropriate affect, normal mood. ABSENT: homicidal ideation, suicidal ideation Skin exam: PRESENT: dry, intact, warm. ABSENT: cyanosis, rash Results Laboratory Results: 03/14/19 05:52 03/15/19 04:48 03/15/19 04:48 Sodium 139.9 Potassium 3.8 Chloride 97 L Carbon Dioxide 34 H Anion Gap 9 BUN 28 H Creatinine 1.80 H Est GFR ( Amer) 43 L Est GFR (Non-Af Amer) 36 L Glucose 96 Calcium 8.6 03/09/19 19:49 Blood Blood Culture - Final NO GROWTH IN 5 DAYS 03/09/19 20:27 Blood Blood Culture - Final NO GROWTH IN 5 DAYS 03/10/19 04:56 NT-Pro-B Natriuret Pep [id number] H Impressions: Abdomen/Pelvis CT 03/09/19 00:00 IMPRESSION: 1. Small bilateral pleural effusions slightly larger on the left with associated mild bibasilar compressive atelectasis. 2. Since the prior study there has been development of a small left paracentral ventral umbilical hernia containing nondilated small bowel loops. There is no evidence of proximal small bowel obstruction. There is no evidence of strangulation or incarceration. There are postsurgical changes along the anterior abdominal wall in the midline and anterior peritoneal cavity. There are additional surgical clips scattered throughout the abdomen and retroperitoneum. 3. Remote left nephrectomy. 4. Nonobstructing right nephrolithiasis. 5. Remote cholecystectomy. 6. Cardiomegaly. 7. Mild subcutaneous edema. 8. Other chronic findings as described above. Chest X-Ray 03/12/19 00:00 IMPRESSION: No significant improvement in the effusions. Mild improvement in the vascular congestion. Chest Ultrasound 03/13/19 00:00 IMPRESSION: 1. Bilateral pleural effusions, left greater than right. Assessment & Plan - Diagnosis (1) Congestive heart failure Qualifiers: Heart failure type: unspecified Heart failure chronicity: acute on chronic Qualified Code(s): I50.9 - Heart failure, unspecified Is this a current diagnosis for this admission?: Yes Plan: Continues to start torsemide as per cardiology (2) Pneumonia Qualifiers: Pneumonia type: due to unspecified organism Is this a current diagnosis for this admission?: Yes Plan: Repeat the chest x-ray (3) Hematuria Qualifiers: Hematuria type: unspecified type Qualified Code(s): R31.9 - Hematuria, unspecified Is this a current diagnosis for this admission?: Yes Plan: Due to most likely possible UTI and currently patient on anticoagulations Currently not actively bleeding Patient have outpatient appointment to see the urology (4) Coronary artery disease Qualifiers: Coronary Disease-Associated Artery/Lesion type: unspecified vessel or lesion type Is this a current diagnosis for this admission?: Yes Plan: Consult the cardiology (5) Acute renal failure Qualifiers: Acute renal failure type: unspecified Qualified Code(s): N17.9 - Acute kidney failure, unspecified Is this a current diagnosis for this admission?: Yes Plan: Likely due to the worsening the CHF Patient's baseline creatinine of 1.7 (6) Hypertension Qualifiers: Hypertension type: essential hypertension Qualified Code(s): I10 - Essential (primary) hypertension Is this a current diagnosis for this admission?: Yes (7) Pacemaker Is this a current diagnosis for this admission?: Yes (8) Type 2 diabetes mellitus Qualifiers: Diabetes mellitus chcf insulin use: unspecified intermediate project manager insulin use status Diabetes mellitus complication status: with unspecified complications Qualified Code(s): E11.8 - Type 2 diabetes mellitus with unspecified complications Is this a current diagnosis for this admission?: Yes Plan: Scale (9) Pleural effusion Is this a current diagnosis for this admission?: Yes (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) Qualifiers: DVT location: lower extremity Affected thrombotic vein of extremity: femoral Laterality: right Qualified Code(s): I82.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 Is this a current diagnosis for this admission?: Yes (11) Abdominal wall hernia Is this a current diagnosis for this admission?: Yes - Time Time Spent with patient: 15-24 minutes Medications reviewed and adjusted accordingly: Yes Anticipated discharge: SNF Within: within 24 hours - Plan Summary Plan Summary: With the patient's daughter who has a power of real estate associate attorney regarding the patient's current conditions possible discharge to the rehab facility tomorrow patient is currently DNR/DNI
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
[2019-03-15] MEDS: CARVEDILOL 6.25 MG TABLET PO SCH ×2 (11:40→23:20)
[2019-03-15] MEDS: CEFUROXIME 250 MG TABLET PO SCH ×2 (11:40→23:21)
[2019-03-15] MEDS: SITAGLIPTIN PHOSPHATE 50 MG TABLET PO SCH (11:40)
[2019-03-15] MEDS: TAMSULOSIN HCL 0.4 MG CAP.SR.24H PO SCH (11:41)
[2019-03-15] MEDS: DOCUSATE SODIUM 100 MG CAPSULE PO SCH ×2 (11:41→17:58)
[2019-03-15] MEDS: APIXABAN 2.5 MG TABLET PO SCH ×2 (11:41→17:58)
[2019-03-15] MEDS: FAMOTIDINE 20 MG TABLET PO SCH ×2 (11:41→23:21)
[2019-03-15] MEDS: AZITHROMYCIN 250 MG TABLET PO SCH ×2 (18:00→23:21)
[2019-03-15] MEDS: ATORVASTATIN CALCIUM 40 MG TABLET PO SCH (23:20)
[2019-03-15] MEDS: CEFTRIAXONE SODIUM 1,000 MG in DEXTROSE 5%-WATER 50 ML IV SCH (23:22)
[2019-03-16] MEDS: SACUBITRIL/VALSARTAN 24 MG/26 MG TABLET PO SCH ×2 (05:58→17:40)
--- NOTE | 2019-03-16 09:37 | PDOC PROGRESS REPORT ---
Subjective Progress Note for:: 03/16/19 Subjective:: Patient is currently doing well Patient's blood pressure is running in the lower end but denied any symptoms Discussed with the cardiology and suggest that probably aspirin as patient asymptomatic's no need to be decreased the medicines Suggest the continues the diuretics every other day Discussed with the daughter on the bedside regarding the patient's current con ditions Reason For Visit: CHF, PNEUMONIA Physical Exam Vital Signs: Temp Pulse Resp BP Pulse Ox 98 F 68 16 100/57 L 92 03/16/19 05:09 03/16/19 05:09 03/16/19 05:09 03/16/19 05:09 03/16/19 05:09 Intake & Output 03/15/19 03/16/19 03/17/19 06:59 06:59 06:59 Intake Total 300 350 Output Total 100 Balance 300 250 Weight 89.6 kg 78.3 kg General appearance: PRESENT: no acute distress, well-developed, well-nourished Head exam: PRESENT: atraumatic, normocephalic Eye exam: PRESENT: conjunctiva pink, EOMI, PERRLA. ABSENT: scleral icterus Ear exam: PRESENT: normal external ear exam Mouth exam: PRESENT: moist, tongue midline Neck exam: PRESENT: full ROM. ABSENT: carotid bruit, JVD, lymphadenopathy, thyromegaly Respiratory exam: PRESENT: clear to auscultation ana Cardiovascular exam: PRESENT: RRR. ABSENT: diastolic murmur, rubs, systolic murmur Vascular exam: PRESENT: normal capillary refill GI/Abdominal exam: PRESENT: normal bowel sounds, soft. ABSENT: distended, guarding, mass, organolmegaly, rebound, tenderness Rectal exam: PRESENT: deferred Neurological exam: PRESENT: alert, awake, oriented to person, oriented to place, oriented to time, oriented to situation, CN II-XII grossly intact. ABSENT: motor sensory deficit Psychiatric exam: PRESENT: appropriate affect, normal mood. ABSENT: homicidal ideation, suicidal ideation Skin exam: PRESENT: dry, intact, warm. ABSENT: cyanosis, rash Results Laboratory Results: 03/14/19 05:52 03/15/19 04:48 03/10/19 04:56 NT-Pro-B Natriuret Pep [id number] H Impressions: Abdomen/Pelvis CT 03/09/19 00:00 IMPRESSION: 1. Small bilateral pleural effusions slightly larger on the left with associated mild bibasilar compressive atelectasis. 2. Since the prior study there has been development of a small left paracentral ventral umbilical hernia containing nondilated small bowel loops. There is no evidence of proximal small bowel obstruction. There is no evidence of strangulation or incarceration. There are postsurgical changes along the anterior abdominal wall in the midline and anterior peritoneal cavity. There are additional surgical clips scattered throughout the abdomen and retroperitoneum. 3. Remote left nephrectomy. 4. Nonobstructing right nephrolithiasis. 5. Remote cholecystectomy. 6. Cardiomegaly. 7. Mild subcutaneous edema. 8. Other chronic findings as described above. Chest X-Ray 03/12/19 00:00 IMPRESSION: No significant improvement in the effusions. Mild improvement in the vascular congestion. Chest Ultrasound 03/13/19 00:00 IMPRESSION: 1. Bilateral pleural effusions, left greater than right. Assessment & Plan - Diagnosis (1) Congestive heart failure Qualifiers: Heart failure type: unspecified Heart failure chronicity: acute on chronic Qualified Code(s): I50.9 - Heart failure, unspecified Is this a current diagnosis for this admission?: Yes (2) Pneumonia Qualifiers: Pneumonia type: due to unspecified organism Is this a current diagnosis for this admission?: Yes (3) Hematuria Qualifiers: Hematuria type: unspecified type Qualified Code(s): R31.9 - Hematuria, unspecified Is this a current diagnosis for this admission?: Yes (4) Coronary artery disease Qualifiers: Coronary Disease-Associated Artery/Lesion type: unspecified vessel or lesion type Is this a current diagnosis for this admission?: Yes (5) Acute renal failure Qualifiers: Acute renal failure type: unspecified Qualified Code(s): N17.9 - Acute kidney failure, unspecified Is this a current diagnosis for this admission?: Yes (6) Hypertension Qualifiers: Hypertension type: essential hypertension Qualified Code(s): I10 - Essential (primary) hypertension Is this a current diagnosis for this admission?: Yes (7) Pacemaker Is this a current diagnosis for this admission?: Yes (8) Type 2 diabetes mellitus Qualifiers: Diabetes mellitus penitentiary insulin use: unspecified penitentiary insulin use status Diabetes mellitus complication status: with unspecified complications Qualified Code(s): E11.8 - Type 2 diabetes mellitus with unspecified complications Is this a current diagnosis for this admission?: Yes (9) Pleural effusion Is this a current diagnosis for this admission?: Yes (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) Qualifiers: DVT location: lower extremity Affected thrombotic vein of extremity: femoral Laterality: right Qualified Code(s): I82.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 Is this a current diagnosis for this admission?: Yes (11) Abdominal wall hernia Is this a current diagnosis for this admission?: Yes - Time Time Spent with patient: 15-24 minutes Medications reviewed and adjusted accordingly: Yes Anticipated discharge: Other Within: Other - Plan Summary Plan Summary: Check the orthostatic blood pressures Continues to current medications
[2019-03-16] MEDS: INSULIN LISPRO 100 UNIT/ML 3 ML VIAL SUBCUT SCH ×4 (10:22→23:26)
[2019-03-16] MEDS: APIXABAN 2.5 MG TABLET PO SCH ×2 (11:44→17:39)
[2019-03-16] MEDS: CEFUROXIME 250 MG TABLET PO SCH ×2 (11:44→23:25)
[2019-03-16] MEDS: DOCUSATE SODIUM 100 MG CAPSULE PO SCH ×2 (11:44→17:39)
[2019-03-16] MEDS: SITAGLIPTIN PHOSPHATE 50 MG TABLET PO SCH (11:44)
[2019-03-16] MEDS: TAMSULOSIN HCL 0.4 MG CAP.SR.24H PO SCH (11:45)
[2019-03-16] MEDS: FAMOTIDINE 20 MG TABLET PO SCH ×2 (11:45→23:26)
[2019-03-16] MEDS: CARVEDILOL 6.25 MG TABLET PO SCH ×2 (11:45→23:25)
--- NOTE | 2019-03-16 14:00 | PDOC TRANSFER SUMMARY ---
General - Admit/Disc Date/PCP Admission Date/Primary Care Provider: 03/09/19 17:48 JEANNIE EISENBERG MD Discharge Date: 03/17/19 - Discharge Diagnosis (1) Congestive heart failure Is this a current diagnosis for this admission?: Yes Summary: Patient's EF is only 20%'s Follow with the cardiology Dr. Orellana Continues demadex 10 mg every other day (2) Pneumonia Is this a current diagnosis for this admission?: Yes Summary: P.o. antibiotic (3) Hematuria Is this a current diagnosis for this admission?: Yes Summary: All resolved (4) Coronary artery disease Is this a current diagnosis for this admission?: Yes Summary: Medical management (5) Acute renal failure Is this a current diagnosis for this admission?: Yes Summary: Follow with the outpatients with [facility] (6) Hypertension Is this a current diagnosis for this admission?: Yes Summary: Your stable (7) Pacemaker Is this a current diagnosis for this admission?: Yes (8) Type 2 diabetes mellitus Is this a current diagnosis for this admission?: Yes (9) Pleural effusion Is this a current diagnosis for this admission?: Yes Summary: Clear all stable (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) Is this a current diagnosis for this admission?: Yes Summary: Eliquis 2.5 mg twice a day (11) Abdominal wall hernia Is this a current diagnosis for this admission?: Yes Summary: Seen by the surgery no surgical indications - Additional Information Resuscitation Status: Do Not Resuscitate Discharge Diet: Diabetic Discharge Activity: Activity As Tolerated, Balance Activity w/Rest, Weigh Daily Prescriptions: Acetaminophen [Tylenol 325 mg Tablet] 650 mg PO Q4HP PRN #100 tablet PRN Reason: Carvedilol [Coreg 6.25 mg Tablet] 6.25 mg PO Q12 #60 tablet Cefuroxime Axetil [Ceftin 250 mg Tablet] 250 mg PO Q12 #14 tablet Famotidine [Pepcid 20 mg Tablet] 20 mg PO Q12 #60 tablet Insulin Lispro [Humalog Insulin (Lispro) 100 unit/mL] 0 - 12 unit SUBCUT ACHS #1 unit Ipratropium/Albuterol Sulfate [Duoneb 3 ml Ampul] 3 ml NEB RTQ6HP PRN #120 vial.neb PRN Reason: Sacubitril/Valsartan [Entresto 24 mg/26 mg Tablet] 1 tab PO Q12A #60 tablet Torsemide [Demadex 10 mg Tablet] 10 mg PO DAILY #30 tablet Home Medications: Calcium Carbonate/Vitamin D3 [Calcium 600 + Vit D Tablet] 1 tab PO Q12 06/24/17 Cyanocobalamin (Vitamin B-12) [Vitamin B-12 250 mcg Tablet] 250 mcg PO DAILY 06/24/17 Rosuvastatin Calcium [Crestor 20 mg Tablet] 20 mg PO QHS 06/24/17 Tamsulosin HCl [Flomax 0.4 mg Cap.sr] 0.4 mg PO DAILY 06/24/17 Apixaban [Eliquis 2.5 mg Tablet] 2.5 mg PO .STOPPED 03/07/19 03/09/19 Cholecalciferol (Vitamin D3) [Vitamin D3 1000 Unit Tablet] 1,000 unit PO DAILY 03/09/19 Ferrous Sulfate [Feosol 325 mg Tablet] 325 mg PO DAILY 03/09/19 Sitagliptin Phosphate [Januvia 50 mg Tablet] 100 mg PO DAILY 03/09/19 Acetaminophen [Tylenol 325 mg Tablet] 650 mg PO Q4HP PRN #100 tablet 03/16/19 Carvedilol [Coreg 6.25 mg Tablet] 6.25 mg PO Q12 #60 tablet 03/16/19 Cefuroxime Axetil [Ceftin 250 mg Tablet] 250 mg PO Q12 #14 tablet 03/16/19 Famotidine [Pepcid 20 mg Tablet] 20 mg PO Q12 #60 tablet 03/16/19 Insulin Lispro [Humalog Insulin (Lispro) 100 unit/mL] 0 - 12 unit SUBCUT ACHS #1 unit 03/16/19 Ipratropium/Albuterol Sulfate [Duoneb 3 ml Ampul] 3 ml NEB RTQ6HP PRN #120 vial.neb 03/16/19 Sacubitril/Valsartan [Entresto 24 mg/26 mg Tablet] 1 tab PO Q12A #60 tablet 03/16/19 Torsemide [Demadex 10 mg Tablet] 10 mg PO DAILY #30 tablet 03/16/19 History of Present Illness Admission Date/PCP: 03/09/19 17:48 JEANNIE EISENBERG MD History of Present Illness: PRASANNA NAVARRETE is a 89 year old male atient is here because of abnormal chest x-ray with suggest the left-sided p ossible pneumonia with massive cardiomegaly Patient is having no fever no chills Patient feels short of breath Patient also have a elevated BNP was 40,000 As per discussed with the patient's cardiology decided to admit in the hospital Patient have a pacemaker and currently see her Dr. Orellana for that Patient had a recent episode of hematuria have appointment to see the urology next week Patient have a chronic anticoagulations due to the chronic recurrent thrombosis and currently see driller machine and chronic Eliquis Patient is came office today for the follow for the lab and x-ray Patient is denied any complaint but according to the daughters patient still short of breath which consistent with the possible acute congestive heart failure with the possible pneumonia and pleural effusions At this point discussed with the daughter and the patient and decided to admit in the hospital for further evaluations Hospital Course Hospital Course: This is a 89-year-old male with the multiple medical problem as above came to my office with the complaining of a short of breath diagnosed with acute congestive heart failure and decided to admit to the hospitals Patient seen by the senior risk analyst Dr. Orellana and echocardiogram was done with the EF is less than 20%'s At this point patient was giving IV Lasix Patient also have underlying pneumonia treated with IV antibiotic This patient's response very well with the treatments Very extensive discussed with the patient's family also power of deputy attorney general daughter regarding the patient's current condition by myself from cardiology and patient is currently a DNR/DNI Cardiology offered a LifeVest monitor but family decided to not go for that At this point patients get a maximum management for the heart failure Patient's blood pressure is running in the lower end and this was discussed with the cardiology as per his the patient's blood pressure about 90 continues to current medications which helped the patient's heart failure The blood pressure is below 90 for the blood pressure medications Use the diuretics every other day and SSS with the increasingly short of breath or edema increase the Follow in cardiology office in 1 week Check a CBC and Chem-7 in 1 week Fall precaution while patient is taking the anticoagulations Physical therapy Physical Exam Vital Signs: Temp Pulse Resp BP Pulse Ox 97.5 F 80 16 113/54 L 97 03/16/19 11:24 03/16/19 11:24 03/16/19 11:24 03/16/19 11:24 03/16/19 11:24 Intake & Output 03/15/19 03/16/19 03/17/19 06:59 06:59 06:59 Intake Total 300 350 Output Total 100 Balance 300 250 Weight 89.6 kg 78.3 kg General appearance: PRESENT: no acute distress, well-developed, well-nourished Head exam: PRESENT: atraumatic, normocephalic Eye exam: PRESENT: conjunctiva pink, EOMI, PERRLA. ABSENT: scleral icterus Ear exam: PRESENT: normal external ear exam Mouth exam: PRESENT: moist, tongue midline Neck exam: ABSENT: carotid bruit, JVD, lymphadenopathy, thyromegaly Respiratory exam: PRESENT: clear to auscultation ana. ABSENT: rales, rhonchi, wheezes Cardiovascular exam: PRESENT: RRR. ABSENT: diastolic murmur, rubs, systolic murmur Pulses: PRESENT: normal dorsalis pedis pul Vascular exam: PRESENT: normal capillary refill GI/Abdominal exam: PRESENT: hernia, normal bowel sounds, soft. ABSENT: distended, guarding, mass, organolmegaly, rebound, tenderness Rectal exam: PRESENT: deferred Extremities exam: PRESENT: full ROM. ABSENT: calf tenderness, clubbing, pedal edema Neurological exam: PRESENT: alert, awake, oriented to person, oriented to place, oriented to time, oriented to situation, CN II-XII grossly intact. ABSENT: motor sensory deficit Psychiatric exam: PRESENT: appropriate affect, normal mood. ABSENT: homicidal ideation, suicidal ideation Skin exam: PRESENT: dry, intact, warm. ABSENT: cyanosis, rash Results Laboratory Results: 03/14/19 05:52 03/15/19 04:48 03/10/19 04:56 NT-Pro-B Natriuret Pep [id number] H Impressions: Abdomen/Pelvis CT 03/09/19 00:00 IMPRESSION: 1. Small bilateral pleural effusions slightly larger on the left with associated mild bibasilar compressive atelectasis. 2. Since the prior study there has been development of a small left paracentral ventral umbilical hernia containing nondilated small bowel loops. There is no evidence of proximal small bowel obstruction. There is no evidence of strangulation or incarceration. There are postsurgical changes along the anterior abdominal wall in the midline and anterior peritoneal cavity. There are additional surgical clips scattered throughout the abdomen and retroperitoneum. 3. Remote left nephrectomy. 4. Nonobstructing right nephrolithiasis. 5. Remote cholecystectomy. 6. Cardiomegaly. 7. Mild subcutaneous edema. 8. Other chronic findings as described above. Chest X-Ray 03/12/19 00:00 IMPRESSION: No significant improvement in the effusions. Mild improvement in the vascular congestion. Chest Ultrasound 03/13/19 00:00 IMPRESSION: 1. Bilateral pleural effusions, left greater than right. Transfer Plan - Time Spent with Patient Time spent with patient: Greater than 30 Minutes Qualifiers - * PATIENT BEING DISCHARGED WITH ANY OF THE FOLLOWING DIAGNOSIS: No VTE patient discharged on overlapping Therapy?: Yes Acute Heart Failure Is this a Heart Failure Patient?: Yes Documentation of LVEF assessment?: Yes a) Discharged on ACEI?: Yes b) Discharges on ARB?: Yes c) Discharged on ARNI?: Yes d) Discharged on evidence-based Beta jaclyn(carvedilol, sustained release metoprolol succinate, or bisoprolol)?: Yes e) For LVEF <35%, discharged on Aldosterone antagonist?: Yes 3. Anticoagulant therapy for permanect/persistent/paraoxysmal Afib or Aflutter: Yes Follow-up Appointment scheduled within 7 days?: Yes Plan Time Spent: Greater than 30 Minutes - For the cardiology office Check a CBC Chem-7 and chest x-ray in 1 week
--- NOTE | 2019-03-16 16:18 | PDOC PROGRESS REPORT ---
Subjective Progress Note for:: 03/16/19 Subjective:: No changes. Patient actually looks better. Patient has remained stable since admission without any significant events. Patient family has made a decision for patient not to wear his LifeVest. They have also made patient a DNR. Patient is noted to have moderate pleural effusion on the left side and a small effusion on the right side. Patient looks comfortable without any shortness of breath. His pedal edema has almost resolved. Patient was noted to have problems with low blood pressure but asymptomatic. Some cardiac medications were held. Diuretics dose will be reduced. Patient is denying any chest arm or leg discomfort. He is noted to lay flat in bed comfortable without any shortness of breath. OT PT orders were written in the chart. Today patient was seen at lunchtime. He was noted to be resting comfortably in bed. He denied any chest, arm or neck discomfort. Patient has trace pedal edema. Patient has not emulated much. His suspected to be discharged. Blood-pressure in the low 90s at times. However overall patient has been asymptomatic period Reason For Visit: CHF, PNEUMONIA Physical Exam Vital Signs: Temp Pulse Resp BP Pulse Ox 97.5 F 67 16 113/54 L 97 03/16/19 11:24 03/16/19 14:00 03/16/19 11:24 03/16/19 11:24 03/16/19 11:24 Intake & Output 03/15/19 03/16/19 03/17/19 06:59 06:59 06:59 Intake Total 300 350 Output Total 100 Balance 300 250 Weight 89.6 kg 78.3 kg Exam: GEN: NAD, patient alert oriented x3. Appearance and grooming WNL HEENT : Eyes: [place], Ears: No significant abnormalities, Nose: No significant abnormalities. normocephalic atraumatic. Flat midface (-), Receding chin (-) ORAL : Mallampati class IV, narrow arched palate (-) Tonsils: Not enlarged. NECK: no thyromegaly, no masses, trachea is central, JVD is not elevated, carotids 2+ with bruit (-) RESP: lungs clear, no rales, wheezes or rhonchi, nonlabored, accessory muscles of respiration use (-).Mild Dullness both bases. CV: NL S1 and S2. No significant murmurs noted, no gallop, no extra sounds, no clicks, no rub noted. GI: abd NT to palpation, no masses, bowel sounds present, no guarding or rigidity noted. EXT: no clubbing, (-) cyanosis, edema (-), perpheral pulses diminished (no) MUSC/SKEL: no acute joint swelling noted. Muscle strength is generally intact. NEURO: no significant focal neurological deficits are note, sensation grossly intact, AO x 3 PSYCH: NL mood and affect. judgment and insight noted to be intact. SKIN: (-) rash, (-)Signs of pruritus, (-) other significant abnormality Results Laboratory Results: 03/14/19 05:52 03/15/19 04:48 03/10/19 04:56 NT-Pro-B Natriuret Pep 24142 H Impressions: Abdomen/Pelvis CT 03/09/19 00:00 IMPRESSION: 1. Small bilateral pleural effusions slightly larger on the left with associated mild bibasilar compressive atelectasis. 2. Since the prior study there has been development of a small left paracentral ventral umbilical hernia containing nondilated small bowel loops. There is no evidence of proximal small bowel obstruction. There is no evidence of strangulation or incarceration. There are postsurgical changes along the anterior abdominal wall in the midline and anterior peritoneal cavity. There are additional surgical clips scattered throughout the abdomen and retroperitoneum. 3. Remote left nephrectomy. 4. Nonobstructing right nephrolithiasis. 5. Remote cholecystectomy. 6. Cardiomegaly. 7. Mild subcutaneous edema. 8. Other chronic findings as described above. Chest X-Ray 03/12/19 00:00 IMPRESSION: No significant improvement in the effusions. Mild improvement in the vascular congestion. Chest Ultrasound 03/13/19 00:00 IMPRESSION: 1. Bilateral pleural effusions, left greater than right. 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 Patient advised on salt and fluid restriction. Patient also advised on daily weighing. Patient to be watched for symptoms associated with worsening CHF. This include weight gain, worsening shortness of breath, fatigue, tiredness, worsening edema etc. Patient to be advised how to adjust diuretics depending on weight gain. Cardiomyopathy: patient has history of cardiomyopathy and depressed LVEF. Patient to be advised to notify any sustained palpitations, syncope, near syncope. Discussed case in detail with Dr Levy. Patient to continue on current medications which can be gradually escalated as an outpatient. Would recommend cutting back demadex to 10 mg PO every other day. - Time Time with patient: 15-25 minutes Medications reviewed and adjusted accordingly: Yes
[2019-03-16] MEDS: AZITHROMYCIN 250 MG TABLET PO SCH ×2 (17:39→23:26)
[2019-03-16] MEDS: ATORVASTATIN CALCIUM 40 MG TABLET PO SCH (23:26)
[2019-03-17] MEDS: SACUBITRIL/VALSARTAN 24 MG/26 MG TABLET PO SCH (05:49)
[2019-03-17] MEDS: INSULIN LISPRO 100 UNIT/ML 3 ML VIAL SUBCUT SCH (09:18)
[2019-03-17] MEDS: APIXABAN 2.5 MG TABLET PO SCH (09:27)
[2019-03-17] MEDS: TAMSULOSIN HCL 0.4 MG CAP.SR.24H PO SCH (09:27)
[2019-03-17] MEDS: DOCUSATE SODIUM 100 MG CAPSULE PO SCH (09:27)
[2019-03-17] MEDS: FAMOTIDINE 20 MG TABLET PO SCH (09:27)
[2019-03-17] MEDS: SITAGLIPTIN PHOSPHATE 50 MG TABLET PO SCH (09:27)
[2019-03-17] MEDS: CARVEDILOL 6.25 MG TABLET PO SCH (09:27)
[2019-03-17] MEDS: CEFUROXIME 250 MG TABLET PO SCH (09:27)
[2019-03-17 13:02] VITALS: BP 112/52
== END 2019-03-17 13:40 | DRG 291 ==
LOC: ER 15:41 → EH 17:48 → 5 22:33
PROVIDERS: ADMIT Family Medicine; ATTEND Family Medicine
DX: I13.0 Hypertensive heart and chronic kidney disease with heart failure and stage 1 through stage 4 chronic kidney disease, or unspecified chronic kidney disease (principal); J18.9 Pneumonia, unspecified organism; I50.43 Acute on chronic combined systolic (congestive) and diastolic (congestive) heart failure; N17.9 Acute kidney failure, unspecified; I82.511 Chronic embolism and thrombosis of right femoral vein; Q60.0 Renal agenesis, unilateral; E11.22 Type 2 diabetes mellitus with diabetic chronic kidney disease; I27.20 Pulmonary hypertension, unspecified; E11.51 Type 2 diabetes mellitus with diabetic peripheral angiopathy without gangrene; R31.9 Hematuria, unspecified; I36.1 Nonrheumatic tricuspid (valve) insufficiency; D63.1 Anemia in chronic kidney disease; Z79.01 Long term (current) use of anticoagulants; N18.3 Chronic kidney disease, stage 3 (moderate); I34.0 Nonrheumatic mitral (valve) insufficiency; I42.0 Dilated cardiomyopathy; E78.5 Hyperlipidemia, unspecified; K21.9 Gastro-esophageal reflux disease without esophagitis; M19.90 Unspecified osteoarthritis, unspecified site; J61 Pneumoconiosis due to asbestos and other mineral fibers; I25.10 Atherosclerotic heart disease of native coronary artery without angina pectoris; R03.1 Nonspecific low blood-pressure reading; Z66 Do not resuscitate; K43.2 Incisional hernia without obstruction or gangrene; Z95.0 Presence of cardiac pacemaker; Z95.5 Presence of coronary angioplasty implant and graft; Z79.84 Long term (current) use of oral hypoglycemic drugs; Z86.73 Personal history of transient ischemic attack (TIA), and cerebral infarction without residual deficits; Z87.891 Personal history of nicotine dependence
CPT/HCPCS: 36415; 71046; 74176; 76604; 80048; 80053; 82962; 83735; 83880; 85025; 87040; 93005; 93010; 93306; 99285; J0456; J0696; J1940; J3490; J7060

== ENCOUNTER 2019-04-07 09:42 | Inpatient (IN) | payer MEDICARE, MEDICAID ==
[2019-04-07 11:19] LABS: ALANINE AMINOTRANSFERASE 19 U/L (21-72); ALBUMIN 2.9 g/dL (3.5-5.0); ALKALINE PHOSPHATASE 75 U/L (38-126); ANION GAP 8 (5-19); ASPARTATE AMINO TRANSFERASE 24 U/L (17-59); BILIRUBIN,DIRECT 0.4 mg/dL (0.0-0.4); BILIRUBIN,TOTAL 0.8 mg/dL (0.2-1.3); BLOOD UREA NITROGEN 34 mg/dL (7-20); CARBON DIOXIDE 30 mmol/L (22-30); CHLORIDE 103 mmol/L (98-107); CREATINE KINASE 83 U/L (55-170); GLUCOSE 112 mg/dL (75-110); HEMATOCRIT 34.4 % (37.9-51.0); HEMOGLOBIN 11.3 g/dL (13.5-17.0); MEAN CORPUSCULAR HEMOGLOBIN 29.8 pg (27.0-33.4); MEAN CORPUSCULAR HGB CONC 32.8 g/dL (32.0-36.0); MEAN CORPUSCULAR VOLUME 91 fl (80-97); PLATELET COUNT 148 10^3/uL (150-450); POTASSIUM 3.9 mmol/L (3.6-5.0); RED BLOOD COUNT 3.79 10^6/uL (4.35-5.55); RED CELL DISTRIBUTION WIDTH 16.5 % (11.5-14.0); SODIUM 141.3 mmol/L (137-145); WHITE BLOOD COUNT 10.6 10^3/uL (4.0-10.5)
--- NOTE | 2019-04-07 11:29 | RADIOLOGY REPORT (SQ) ---
EXAM DESCRIPTION: CHEST SINGLE VIEW COMPLETED DATE/TIME: 04/07/2019 11:08 am REASON FOR STUDY: SOB, AMS COMPARISON: 03/12/2019 NUMBER OF VIEWS: One view. TECHNIQUE: Single frontal radiographic view of the chest acquired. LIMITATIONS: None. FINDINGS: LUNGS AND PLEURA: Unchanged pleural effusions, left greater than right. MEDIASTINUM AND HILAR STRUCTURES: No masses or contour abnormality. HEART AND VASCULATURE: Cardiac enlargement. Vascular congestion. BONES: No acute findings. HARDWARE: Stable position of pacemaker. OTHER: No other significant finding. IMPRESSION: CHF. Pleural effusions. No change. TECHNICAL DOCUMENTATION: JOB ID: [id number] [employer]- All Rights Reserved Reading location - IP/workstation name: [email or web address]
[2019-04-07] MEDS ORDERED: ACETAMINOPHEN 650 MG SUPP.RECT PR ONE (11:38)
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
[2019-04-07 11:39] LABS: CREATINE KINASE MB 1.58 ng/mL (<4.55)
[2019-04-07 11:41] LABS: TROPONIN I 0.761 ng/mL
[2019-04-07 11:43] LABS: ABSOLUTE LYMPHOCYTES# (MANUAL) 0.6 10^3/uL (0.5-4.7); ABSOLUTE MONOCYTES # (MANUAL) 0.1 10^3/uL (0.1-1.4); BAND NEUTROPHILS % (MANUAL) 18 % (3-5); BASOPHILS % (MANUAL) 0 % (0-2); EOSINOPHILS % (MANUAL) 1 % (0-6); LYMPHOCYTES % (MANUAL) 6 % (13-45); MONOCYTES % (MANUAL) 1 % (3-13); SEGMENTED NEUTROPHILS % (MAN) 74 % (42-78); TOTAL CELLS COUNTED 100
[2019-04-07 11:44] LABS: ANISOCYTOSIS 1+; PLATELET COMMENT DECREASED
[2019-04-07] MEDS ORDERED: LIDOCAINE 2% URO-JET 5 ML KIT MM ONE (11:51)
[2019-04-07] MEDS ORDERED: NORMAL SALINE 1000 ML 1,000 ML IV ONE ×2 (12:04→13:39)
[2019-04-07 14:29] LABS: APPEARANCE,URINE CLOUDY; BILIRUBIN,URINE NEGATIVE (NEGATIVE); GLUCOSE, URINE NEGATIVE (NEGATIVE); KETONES,URINE NEGATIVE (NEGATIVE); LEUKOCYTE ESTERASE,URINE LARGE (NEGATIVE); NITRITE,URINE NEGATIVE (NEGATIVE); PROTEIN,URINE 30 mg/dL (NEGATIVE); URINE SPECIFIC GRAVITY 1.008; UROBILINOGEN,URINE NEGATIVE mg/dL (<2.0)
[2019-04-07 14:38] LABS: COLOR,URINE PINK
[2019-04-07] MEDS ORDERED: LEVOFLOXACIN 500 MG/D5W RTU 500 MG/100 ML RTUPB IV ONE (14:41)
[2019-04-07] MEDS ORDERED: IPRATROPIUM/ALBUTEROL 0.5-2.5 MG/3 ML AMPUL NEB PRN (14:49)
[2019-04-07] MEDS ORDERED: ACETAMINOPHEN 325 MG TABLET PO PRN (14:49)
[2019-04-07] MEDS ORDERED: FUROSEMIDE INJ/PF 20 MG/2 ML SDV IV ONE (14:50)
[2019-04-07] MEDS ORDERED: DEXTROSE 40% GEL 15 GM TUBE PO PRN ×2 (14:54)
[2019-04-07] MEDS ORDERED: DEXTROSE 50%-WATER 25 GM/50 ML DISP.SYRIN IV PRN ×2 (14:54)
[2019-04-07] MEDS ORDERED: GLUCAGON,HUMAN RECOMB 1 MG INJ IM PRN (14:54)
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
[2019-04-07] MEDS ORDERED: CLOPIDOGREL BISULFATE 300 MG TABLET PO ONE (18:30)
[2019-04-07] MEDS: INSULIN LISPRO 100 UNIT/ML 3 ML VIAL SUBCUT SCH ×2 (18:49→21:25)
[2019-04-07] MEDS: FAMOTIDINE 20 MG TABLET PO SCH (19:28)
[2019-04-07] MEDS: DOCUSATE SODIUM 100 MG CAPSULE PO SCH (19:28)
--- NOTE | 2019-04-07 19:28 | EKG REPORT ---
SEVERITY:- ABNORMAL ECG - VENTRICULAR-PACED COMPLEXES : Confirmed by: Janie Nuñez MD 07-Apr-2019 19:27:53
[2019-04-07] MEDS: CEFEPIME 1 GM/D5W RTU 1 GM/50 ML RTUPB IV SCH (19:29)
[2019-04-07] MEDS ORDERED: NORMAL SALINE 1000 ML 720 ML IV PRN (20:17)
[2019-04-07] MEDS ORDERED: FAMOTIDINE 20 MG TABLET PO SCH (22:00)
[2019-04-07] MEDS ORDERED: CEFEPIME 1 GM/D5W RTU 1 GM/50 ML RTUPB IV SCH (22:00)
[2019-04-07] MEDS ORDERED: (PENDING PHARMACY ID) (Rosuvastatin Calcium [Crestor 20 Mg Tablet] 20 MG) PO SCH (22:00)
[2019-04-07] MEDS ORDERED: CARVEDILOL 6.25 MG TABLET PO SCH ×2 (22:00)
[2019-04-07] MEDS ORDERED: (PENDING PHARMACY ID) (Calcium Carbonate/Vitamin D3 [Calcium 600 + Vit D Tablet] 1 TAB) PO SCH (22:00)
[2019-04-07] MEDS: RANOLAZINE 500 MG TAB.SR.12H PO SCH (22:27)
[2019-04-07] MEDS: CALCIUM CARBONATE 250 MG/VITAMIN D3 125 UNIT TABLET PO SCH (22:27)
[2019-04-07] MEDS: APIXABAN 2.5 MG TABLET PO SCH (22:28)
[2019-04-07] MEDS: ATORVASTATIN CALCIUM 40 MG TABLET PO SCH (22:28)
[2019-04-07] MEDS: CARVEDILOL 3.125 MG TABLET PO SCH (22:28)
[2019-04-08 06:29] LABS: HEMATOCRIT 35.1 % (37.9-51.0); HEMOGLOBIN 11.3 g/dL (13.5-17.0); MEAN CORPUSCULAR HEMOGLOBIN 29.6 pg (27.0-33.4); MEAN CORPUSCULAR HGB CONC 32.2 g/dL (32.0-36.0); MEAN CORPUSCULAR VOLUME 92 fl (80-97); PLATELET COUNT 114 10^3/uL (150-450); RED BLOOD COUNT 3.82 10^6/uL (4.35-5.55); RED CELL DISTRIBUTION WIDTH 17.1 % (11.5-14.0); WHITE BLOOD COUNT 7.6 10^3/uL (4.0-10.5)
[2019-04-08] MEDS ORDERED: NORMAL SALINE 1000 ML 1,000 ML IV PRN (06:44)
[2019-04-08 07:02] LABS: ABSOLUTE LYMPHOCYTES# (MANUAL) 0.5 10^3/uL (0.5-4.7); ABSOLUTE MONOCYTES # (MANUAL) 0.2 10^3/uL (0.1-1.4); BAND NEUTROPHILS % (MANUAL) 6 % (3-5); BASOPHILS % (MANUAL) 0 % (0-2); EOSINOPHILS % (MANUAL) 0 % (0-6); LYMPHOCYTES % (MANUAL) 6 % (13-45); MONOCYTES % (MANUAL) 3 % (3-13); SEGMENTED NEUTROPHILS % (MAN) 85 % (42-78); TOTAL CELLS COUNTED 100
[2019-04-08 07:03] LABS: ANISOCYTOSIS 1+; BURR CELLS SLIGHT; OVALOCYTES SLIGHT; PLATELET COMMENT DECREASED; POIKILOCYTOSIS SLIGHT; TEAR DROP CELLS SLIGHT; TOXIC VACUOLATION PRESENT
[2019-04-08] MEDS ORDERED: FUROSEMIDE INJ/PF 20 MG/2 ML SDV IV SCH (10:00)
[2019-04-08] MEDS ORDERED: SITAGLIPTIN PHOSPHATE 50 MG TABLET PO SCH (10:00)
[2019-04-08] MEDS ORDERED: CYANOCOBALAMIN 250 MCG PO SCH (10:00)
--- NOTE | 2019-04-08 10:31 | PDOC PROGRESS REPORT ---
Subjective Progress Note for:: 04/08/19 Subjective:: Patient is currently doing fair Patient unable to make any urine since last night Patient is giving the IV fluids Patient is alert awake underlying significant dementia's but pretty much back to the baseline's Patient's overall EF is very poor with worsening the kidney functions with the infections Discussed with the daughter Ashley power of manager play regarding the patient's poor conditions discussed about the hospice care with the multiple comorbidity Discussed with the patient's cardiology Dr. Orellana and suggest that continues to current medication at the [facility] Reason For Visit: UROSEPSIS,ACUTE CHF Physical Exam Vital Signs: Temp Pulse Resp BP Pulse Ox 97.6 F 84 24 H 103/53 L 95 04/08/19 03:06 04/08/19 07:00 04/08/19 03:06 04/08/19 03:06 04/08/19 03:06 Intake & Output 04/07/19 04/08/19 04/09/19 06:59 06:59 06:59 Intake Total 1100 Output Total 0 Balance 1100 Weight 91.2 kg General appearance: PRESENT: no acute distress, well-developed, well-nourished Head exam: PRESENT: atraumatic, normocephalic Eye exam: PRESENT: conjunctiva pink, EOMI, PERRLA. ABSENT: scleral icterus Ear exam: PRESENT: normal external ear exam Mouth exam: PRESENT: moist, tongue midline Neck exam: PRESENT: full ROM. ABSENT: carotid bruit, JVD, lymphadenopathy, thyromegaly Respiratory exam: PRESENT: clear to auscultation ana Cardiovascular exam: PRESENT: RRR. ABSENT: diastolic murmur, rubs, systolic murmur Pulses: PRESENT: normal dorsalis pedis pul, +2 pedal pulses bilateral Vascular exam: PRESENT: normal capillary refill GI/Abdominal exam: PRESENT: normal bowel sounds, soft. ABSENT: distended, guarding, mass, organolmegaly, rebound, tenderness Rectal exam: PRESENT: deferred Extremities exam: PRESENT: pedal edema Neurological exam: PRESENT: alert, altered, awake, oriented to person. ABSENT: motor sensory deficit Psychiatric exam: PRESENT: appropriate affect, normal mood. ABSENT: homicidal ideation, suicidal ideation Skin exam: PRESENT: dry, intact, warm. ABSENT: cyanosis, rash Results Laboratory Results: 04/08/19 05:07 04/07/19 04/07/19 04/07/19 10:41 10:41 13:17 WBC 10.6 H RBC 3.79 L Hgb 11.3 L Hct 34.4 L MCV 91 MCH 29.8 MCHC 32.8 RDW 16.5 H Plt Count 148 L Seg Neutrophils % Not Reportable Lymphocytes % Not Reportable Monocytes % Not Reportable Eosinophils % Not Reportable Basophils % Not Reportable Absolute Neutrophils Not Reportable Absolute Lymphocytes Not Reportable Absolute Monocytes Not Reportable Absolute Eosinophils Not Reportable Absolute Basophils Not Reportable Sodium 141.3 Potassium 3.9 Chloride 103 Carbon Dioxide 30 Anion Gap 8 BUN 34 H Creatinine 3.29 H Est GFR ( Amer) 22 L Est GFR (Non-Af Amer) 18 L Glucose 112 H Lactic Acid 1.4 Calcium 9.0 Magnesium 1.7 Total Bilirubin 0.8 AST 24 ALT 19 L Alkaline Phosphatase 75 Total Protein 6.0 L Albumin 2.9 L Urine Color Urine Appearance Urine pH Ur Specific [place] Urine Protein Urine Glucose (UA) Urine Ketones Urine Blood Urine Nitrite Ur Leukocyte Esterase Urine WBC (Auto) Urine RBC (Auto) 04/07/19 04/07/19 04/08/19 13:48 14:05 05:07 WBC 7.6 RBC 3.82 L Hgb 11.3 L Hct 35.1 L MCV 92 MCH 29.6 MCHC 32.2 RDW 17.1 H Plt Count 114 L Seg Neutrophils % Not Reportable Lymphocytes % Not Reportable Monocytes % Not Reportable Eosinophils % Not Reportable Basophils % Not Reportable Absolute Neutrophils Not Reportable Absolute Lymphocytes Not Reportable Absolute Monocytes Not Reportable Absolute Eosinophils Not Reportable Absolute Basophils Not Reportable Sodium Potassium Chloride Carbon Dioxide Anion Gap BUN Creatinine Est GFR ( Amer) Est GFR (Non-Af Amer) Glucose Lactic Acid Calcium Magnesium 1.7 Total Bilirubin AST ALT Alkaline Phosphatase Total Protein Albumin Urine Color PINK Urine Appearance CLOUDY Urine pH 6.0 Ur Specific [place] 1.008 Urine Protein 30 H Urine Glucose (UA) NEGATIVE Urine Ketones NEGATIVE Urine Blood LARGE H Urine Nitrite NEGATIVE Ur Leukocyte Esterase LARGE H Urine WBC (Auto) >182 Urine RBC (Auto) >182 04/08/19 05:07 WBC RBC Hgb Hct MCV MCH MCHC RDW Plt Count Seg Neutrophils % Lymphocytes % Monocytes % Eosinophils % Basophils % Absolute Neutrophils Absolute Lymphocytes Absolute Monocytes Absolute Eosinophils Absolute Basophils Sodium Potassium Chloride Carbon Dioxide Anion Gap BUN Creatinine Est GFR ( Amer) Est GFR (Non-Af Amer) Glucose Lactic Acid Calcium Magnesium 1.8 Total Bilirubin AST ALT Alkaline Phosphatase Total Protein Albumin Urine Color Urine Appearance Urine pH Ur Specific [place] Urine Protein Urine Glucose (UA) Urine Ketones Urine Blood Urine Nitrite Ur Leukocyte Esterase Urine WBC (Auto) Urine RBC (Auto) 04/07/19 04/07/19 04/07/19 10:41 10:41 13:48 Creatine Kinase 83 CK-MB (CK-2) 1.58 Troponin I 0.761 1.050 NT-Pro-B Natriuret Pep 04/08/19 05:07 Creatine Kinase CK-MB (CK-2) Troponin I NT-Pro-B Natriuret Pep 12357 H Impressions: Chest X-Ray 04/07/19 10:53 IMPRESSION: CHF. Pleural effusions. No change. 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 Is this a current diagnosis for this admission?: Yes Plan: Is a combined systolic and diastolic heart failure with the EF is 20% Discussed with the cardiology medical management (4) Hypoxemia Is this a current diagnosis for this admission?: Yes Plan: Continues to oxygen's (5) Pacemaker Is this a current diagnosis for this admission?: Yes (6) Chronic deep vein thrombosis (DVT) Qualifiers: DVT location: lower extremity Affected thrombotic vein of extremity: femoral Laterality: right Qualified Code(s): I82.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 Is this a current diagnosis for this admission?: Yes Plan: Continue to Eliquis (7) Coronary artery disease Qualifiers: Coronary Disease-Associated Artery/Lesion type: unspecified vessel or lesion type Is this a current diagnosis for this admission?: Yes Plan: Elevated troponins mostly a non-ST NC due to the most likely underlying congestive heart failure patient is not a candidate for any interventions as per discussed with the cardiology continues to medical management (8) Type 2 diabetes mellitus Qualifiers: Diabetes mellitus half-way insulin use: unspecified half-way insulin use status Diabetes mellitus complication status: with unspecified complications Qualified Code(s): E11.8 - Type 2 diabetes mellitus with unspecified complications Is this a current diagnosis for this admission?: Yes Plan: Continues a sliding scale (9) Urinary tract bacterial infections Is this a current diagnosis for this admission?: Yes Plan: The patient on IV antibiotic - Time Time Spent with patient: 15-24 minutes Medications reviewed and adjusted accordingly: Yes Anticipated discharge: SNF Within: Other - Plan Summary Plan Summary: Continues to current IV antibiotic Very extensive discussed with the patient's family including the daughter Ashley regarding the patient's poor conditions poor prognosis Discussed with the patient's cardiology Pretty much at this point patients probably appropriate for the hospice care or comfort care Family will discuss and decide Patient is currently DNR/DNI
[2019-04-08 10:52] LABS: ANION GAP 11 (5-19); BLOOD UREA NITROGEN 43 mg/dL (7-20); CALCIUM 8.5 mg/dL (8.4-10.2); CARBON DIOXIDE 26 mmol/L (22-30); CHLORIDE 105 mmol/L (98-107); GLUCOSE 85 mg/dL (75-110); POTASSIUM 4.3 mmol/L (3.6-5.0); SODIUM 142.4 mmol/L (137-145)
[2019-04-08] MEDS: INSULIN LISPRO 100 UNIT/ML 3 ML VIAL SUBCUT SCH ×4 (11:03→21:31)
[2019-04-08] MEDS: CALCIUM CARBONATE 250 MG/VITAMIN D3 125 UNIT TABLET PO SCH ×2 (11:10→21:31)
[2019-04-08] MEDS: TAMSULOSIN HCL 0.4 MG CAP.SR.24H PO SCH (11:11)
[2019-04-08] MEDS: RANOLAZINE 500 MG TAB.SR.12H PO SCH ×2 (11:11→21:31)
[2019-04-08] MEDS: APIXABAN 2.5 MG TABLET PO SCH ×2 (11:11→21:31)
[2019-04-08] MEDS: DOCUSATE SODIUM 100 MG CAPSULE PO SCH ×2 (11:11→18:10)
[2019-04-08] MEDS: CARVEDILOL 3.125 MG TABLET PO SCH ×2 (11:11→21:30)
[2019-04-08] MEDS: SITAGLIPTIN PHOSPHATE 25 MG TABLET PO SCH (11:16)
[2019-04-08] MEDS: CEFEPIME 1 GM/D5W RTU 1 GM/50 ML RTUPB IV SCH (17:48)
[2019-04-08] MEDS: FAMOTIDINE 20 MG TABLET PO SCH (18:10)
[2019-04-08] MEDS: ATORVASTATIN CALCIUM 40 MG TABLET PO SCH (21:31)
[2019-04-09 05:15] LABS: ABSOLUTE LYMPHOCYTES (AUTO) 0.4 10^3/uL (0.5-4.7); ABSOLUTE MONOCYTES (AUTO) 0.6 10^3/uL (0.1-1.4); ABSOLUTE NEUT (AUTO) 5.4 10^3/uL (1.7-8.2); BASOPHILS % (AUTO) 0.2 % (0-2); EOSINOPHILS % (AUTO) 0.3 % (0-6); HEMATOCRIT 34.7 % (37.9-51.0); HEMOGLOBIN 11.3 g/dL (13.5-17.0); LYMPHOCYTES % (AUTO) 6.3 % (13-45); MEAN CORPUSCULAR HEMOGLOBIN 29.9 pg (27.0-33.4); MEAN CORPUSCULAR HGB CONC 32.6 g/dL (32.0-36.0); MEAN CORPUSCULAR VOLUME 92 fl (80-97); MONOCYTES % (AUTO) 8.7 % (3-13); PLATELET COUNT 118 10^3/uL (150-450); RED BLOOD COUNT 3.78 10^6/uL (4.35-5.55); RED CELL DISTRIBUTION WIDTH 17.6 % (11.5-14.0); SEGMENTED NEUTROPHILS % (AUTO) 84.5 % (42-78); TOTAL CELLS COUNTED % (AUTO) 100 %; WHITE BLOOD COUNT 6.4 10^3/uL (4.0-10.5)
[2019-04-09 05:39] LABS: ANION GAP 14 (5-19); BLOOD UREA NITROGEN 57 mg/dL (7-20); CALCIUM 8.1 mg/dL (8.4-10.2); CARBON DIOXIDE 23 mmol/L (22-30); CHLORIDE 106 mmol/L (98-107); GLUCOSE 93 mg/dL (75-110); POTASSIUM 4.8 mmol/L (3.6-5.0); SODIUM 142.8 mmol/L (137-145)
[2019-04-09] MEDS: INSULIN LISPRO 100 UNIT/ML 3 ML VIAL SUBCUT SCH ×4 (08:17→21:28)
--- NOTE | 2019-04-09 09:31 | PDOC PROGRESS REPORT ---
Subjective Progress Note for:: 04/09/19 Subjective:: Patient is currently doing same Patient's kidney function is all worsening Patient's otherwise alert awake significant underlying dementia's with altered mental status but answer the questions Discussed with the daughter and the bedside regarding the hospice care We will talk to the exercise planner in the morning regarding going to the inpatient hospice versus going to the [place] nursing facility Family already discussed about not going for any dialysis Reason For Visit: UROSEPSIS,ACUTE CHF Physical Exam Vital Signs: Temp Pulse Resp BP Pulse Ox 98.1 F 74 20 100/66 95 04/09/19 04:33 04/09/19 08:00 04/09/19 08:00 04/09/19 04:33 04/09/19 08:00 Intake & Output 04/08/19 04/09/19 04/10/19 06:59 06:59 06:59 Intake Total 1150 510 Output Total 0 0 Balance 1150 510 Weight 91.2 kg 91.8 kg General appearance: PRESENT: no acute distress, well-developed, well-nourished Head exam: PRESENT: atraumatic, normocephalic Eye exam: PRESENT: conjunctiva pink, EOMI, PERRLA. ABSENT: scleral icterus Ear exam: PRESENT: normal external ear exam Mouth exam: PRESENT: moist, tongue midline Neck exam: PRESENT: full ROM. ABSENT: carotid bruit, JVD, lymphadenopathy, thyromegaly Respiratory exam: PRESENT: clear to auscultation ana Cardiovascular exam: PRESENT: RRR. ABSENT: diastolic murmur, rubs, systolic murmur Pulses: PRESENT: normal dorsalis pedis pul, +2 pedal pulses bilateral Vascular exam: PRESENT: normal capillary refill GI/Abdominal exam: PRESENT: normal bowel sounds, soft. ABSENT: distended, guarding, mass, organolmegaly, rebound, tenderness Rectal exam: PRESENT: deferred Neurological exam: PRESENT: alert, awake. ABSENT: motor sensory deficit Psychiatric exam: PRESENT: appropriate affect, normal mood. ABSENT: homicidal ideation, suicidal ideation Skin exam: PRESENT: dry, intact, warm. ABSENT: cyanosis, rash Results Laboratory Results: 04/09/19 04:39 04/09/19 04:39 04/08/19 04/09/19 04/09/19 05:07 04:39 04:39 WBC 6.4 RBC 3.78 L Hgb 11.3 L Hct 34.7 L MCV 92 MCH 29.9 MCHC 32.6 RDW 17.6 H Plt Count 118 L Seg Neutrophils % 84.5 H Lymphocytes % 6.3 L Monocytes % 8.7 Eosinophils % 0.3 Basophils % 0.2 Absolute Neutrophils 5.4 Absolute Lymphocytes 0.4 L Absolute Monocytes 0.6 Absolute Eosinophils 0.0 Absolute Basophils 0.0 Sodium 142.4 142.8 Potassium 4.3 4.8 Chloride 105 106 Carbon Dioxide 26 23 Anion Gap 11 14 BUN 43 H 57 H Creatinine 4.69 H 5.35 H Est GFR ( Amer) 14 L 12 L Est GFR (Non-Af Amer) 12 L 10 L Glucose 85 93 Calcium 8.5 8.1 L Magnesium 1.8 04/07/19 04/07/19 04/07/19 10:41 10:41 13:48 Creatine Kinase 83 CK-MB (CK-2) 1.58 Troponin I 0.761 1.050 NT-Pro-B Natriuret Pep 04/08/19 05:07 Creatine Kinase CK-MB (CK-2) Troponin I NT-Pro-B Natriuret Pep [id number] H Impressions: Chest X-Ray 04/07/19 10:53 IMPRESSION: CHF. Pleural effusions. No change. 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 Is this a current diagnosis for this admission?: Yes Plan: Is a combined systolic and diastolic heart failure with the EF is 20% Discussed with the cardiology medical management (4) Hypoxemia Is this a current diagnosis for this admission?: Yes Plan: Continues to oxygen's (5) Pacemaker Is this a current diagnosis for this admission?: Yes (6) Chronic deep vein thrombosis (DVT) Qualifiers: DVT location: lower extremity Affected thrombotic vein of extremity: femoral Laterality: right Qualified Code(s): I82.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 Is this a current diagnosis for this admission?: Yes Plan: Continue to Eliquis (7) Coronary artery disease Qualifiers: Coronary Disease-Associated Artery/Lesion type: unspecified vessel or lesion type Is this a current diagnosis for this admission?: Yes Plan: Elevated troponins mostly a non-ST OR due to the most likely underlying congestive heart failure patient is not a candidate for any interventions as per discussed with the cardiology continues to medical management (8) Type 2 diabetes mellitus Qualifiers: Diabetes mellitus termite control service representative insulin use: unspecified intermediate insulin use status Diabetes mellitus complication status: with unspecified complications Qualified Code(s): E11.8 - Type 2 diabetes mellitus with unspecified complications Is this a current diagnosis for this admission?: Yes Plan: Continues a sliding scale (9) Urinary tract bacterial infections Is this a current diagnosis for this admission?: Yes Plan: The patient on IV antibiotic - Time Time Spent with patient: 15-24 minutes Medications reviewed and adjusted accordingly: Yes Anticipated discharge: Other Within: Other - Plan Summary Plan Summary: Continues to IV Lasix Continues to current medications Will discuss the exercise planner but inpatient hospice versus [facility]
[2019-04-09] MEDS: APIXABAN 2.5 MG TABLET PO SCH ×2 (13:21→21:29)
[2019-04-09] MEDS: CARVEDILOL 3.125 MG TABLET PO SCH ×2 (13:21→21:28)
[2019-04-09] MEDS: DOCUSATE SODIUM 100 MG CAPSULE PO SCH ×2 (13:21→17:31)
[2019-04-09] MEDS: RANOLAZINE 500 MG TAB.SR.12H PO SCH (13:22)
[2019-04-09] MEDS: TAMSULOSIN HCL 0.4 MG CAP.SR.24H PO SCH (13:22)
[2019-04-09] MEDS: CALCIUM CARBONATE 250 MG/VITAMIN D3 125 UNIT TABLET PO SCH ×2 (13:22→21:28)
[2019-04-09] MEDS: SITAGLIPTIN PHOSPHATE 25 MG TABLET PO SCH (13:22)
[2019-04-09] MEDS: CEFEPIME 1 GM/D5W RTU 1 GM/50 ML RTUPB IV SCH (17:19)
[2019-04-09] MEDS: FAMOTIDINE 20 MG TABLET PO SCH (17:31)
--- NOTE | 2019-04-09 20:40 | PDOC PROGRESS REPORT ---
Subjective Progress Note for:: 04/09/19 Subjective:: Patient seems to be stable with stable pulse and blood pressure but has very little urine output. Creatinine has gone up. Pt is denying any chest arm or neck discomfort. Patient denying any PND, orthopnea. Patient denied any sustained palpitations, dizziness, syncope, near syncope. Patient denying any fever chills. Patient denying any other significant discomfort. Patient is ventricular paced rhythm with underlying atrial fibrillation. Review of systems: Rest review of systems negative. Medications: Medications have been reviewed. Reason For Visit: UROSEPSIS,ACUTE CHF Physical Exam Vital Signs: Temp Pulse Resp BP Pulse Ox 97.4 F 79 20 147/72 H 97 04/09/19 19:35 04/09/19 19:35 04/09/19 19:35 04/09/19 19:35 04/09/19 19:35 Intake & Output 04/08/19 04/09/19 04/10/19 06:59 06:59 06:59 Intake Total 1150 510 150 Output Total 0 0 0 Balance 1150 510 150 Weight 91.2 kg 91.8 kg Exam: GENERAL: well-nourished and in no acute distress. Alert but mildly confused. Patient's family in the room. HEAD: Atraumatic, normocephalic. EYES: [place], sclera anicteric, conjunctiva are normal. ENT: Moist mucous membranes. No oral ulcerations or bleeding gums noted. No obvious ear, nose or throat abnormalities noted. NECK: supple without lymphadenopathy. Trachea is central. No cervical or axillary lymphadenopathy noted. Carotids are 2+, JVD WNL LUNGS: Breath sounds equal with few bibasilar crackles. No significant dullness noted on percussion. CHEST: Palpation of the chest wall shows no significant chest wall tenderness. 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 ABDOMEN: Soft, no significant tenderness appreciated, normoactive bowel sounds. No guarding, no rebound. No rigidity noted . No masses appreciated. EXTREMITIES: Pedal pulses are 1-2+, no calf tenderness noted. No clubbing or cyanosis. 1+ pedal edema noted NEUROLOGICAL: Focused neurological exam showed no significant neurologic deficit. Normal speech, no focal weakness appreciated. PSYCH: Normal mood, normal affect. Judgment and insight within normal limits. SKIN: No significant ecchymosis, skin is noted to be warm. MUSCULOSKELETAL EXAM: No significant acute joint swelling noted. Results Laboratory Results: 04/09/19 04:39 04/09/19 04:39 04/09/19 04/09/19 04:39 04:39 WBC 6.4 RBC 3.78 L Hgb 11.3 L Hct 34.7 L MCV 92 MCH 29.9 MCHC 32.6 RDW 17.6 H Plt Count 118 L Seg Neutrophils % 84.5 H Lymphocytes % 6.3 L Monocytes % 8.7 Eosinophils % 0.3 Basophils % 0.2 Absolute Neutrophils 5.4 Absolute Lymphocytes 0.4 L Absolute Monocytes 0.6 Absolute Eosinophils 0.0 Absolute Basophils 0.0 Sodium 142.8 Potassium 4.8 Chloride 106 Carbon Dioxide 23 Anion Gap 14 BUN 57 H Creatinine 5.35 H Est GFR ( Amer) 12 L Est GFR (Non-Af Amer) 10 L Glucose 93 Calcium 8.1 L Magnesium 1.8 04/07/19 04/07/19 04/07/19 10:41 10:41 13:48 Creatine Kinase 83 CK-MB (CK-2) 1.58 Troponin I 0.761 1.050 NT-Pro-B Natriuret Pep 04/08/19 05:07 Creatine Kinase CK-MB (CK-2) Troponin I NT-Pro-B Natriuret Pep [id number] H EKG Comments: Telemetry shows ventricular paced rhythm. Impressions: Chest X-Ray 04/07/19 10:53 IMPRESSION: CHF. Pleural effusions. No change. 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 He has worsening renal function, most likely related to ATN secondary to low blood pressure. At this point agree with holding all blood pressure medications, diuretics. Cautious fluid challenge could be performed. As regards non-STEMI, patient and family do not want any intervention. Medical management with conservative support. This was discussed with patient's family and caretakers. We will continue to follow patient. - Time Time with patient: Greater than 35 minutes - Long discussion entered with patient's family member, daughter who is the medical decision maker for the patient.
[2019-04-09] MEDS: ATORVASTATIN CALCIUM 40 MG TABLET PO SCH (21:28)
[2019-04-10 07:03] LABS: ABSOLUTE LYMPHOCYTES (AUTO) 0.5 10^3/uL (0.5-4.7); ABSOLUTE MONOCYTES (AUTO) 0.5 10^3/uL (0.1-1.4); EOSINOPHILS % (AUTO) 0.9 % (0-6); HEMATOCRIT 37.1 % (37.9-51.0); HEMOGLOBIN 11.9 g/dL (13.5-17.0); LYMPHOCYTES % (AUTO) 9.5 % (13-45); MEAN CORPUSCULAR HEMOGLOBIN 29.3 pg (27.0-33.4); MEAN CORPUSCULAR HGB CONC 32.1 g/dL (32.0-36.0); MEAN CORPUSCULAR VOLUME 91 fl (80-97); MONOCYTES % (AUTO) 10.2 % (3-13); PLATELET COUNT 138 10^3/uL (150-450); RED BLOOD COUNT 4.07 10^6/uL (4.35-5.55); RED CELL DISTRIBUTION WIDTH 17.5 % (11.5-14.0); SEGMENTED NEUTROPHILS % (AUTO) 79.4 % (42-78); TOTAL CELLS COUNTED % (AUTO) 100 %
[2019-04-10 07:24] LABS: ANION GAP 14 (5-19); BLOOD UREA NITROGEN 69 mg/dL (7-20); CALCIUM 8.1 mg/dL (8.4-10.2); CARBON DIOXIDE 23 mmol/L (22-30); CHLORIDE 104 mmol/L (98-107); GLUCOSE 83 mg/dL (75-110); SODIUM 141.3 mmol/L (137-145)
[2019-04-10] MEDS ORDERED: ACETAMINOPHEN 325 MG TABLET PO PRN (07:30)
--- NOTE | 2019-04-10 09:00 | PDOC PROGRESS REPORT ---
Subjective Progress Note for:: 04/10/19 Subjective:: Patient is currently doing fair Patient is more alert awake Patient kidney function is worsening Electrolytes is all stable Seen by the cardiology no interventions require Patient's not candidate for renal replacement therapy and family did not want any go for renal replacement therapy Reason For Visit: UROSEPSIS,ACUTE CHF Physical Exam Vital Signs: Temp Pulse Resp BP Pulse Ox 98.3 F 69 18 110/68 94 04/10/19 07:38 04/10/19 07:38 04/10/19 07:38 04/10/19 07:38 04/10/19 07:38 Intake & Output 04/09/19 04/10/19 04/11/19 06:59 06:59 06:59 Intake Total 510 150 Output Total 0 20 Balance 510 130 Weight 91.8 kg 94.8 kg General appearance: PRESENT: no acute distress, well-developed, well-nourished Head exam: PRESENT: atraumatic, normocephalic Eye exam: PRESENT: conjunctiva pink, EOMI, PERRLA. ABSENT: scleral icterus Ear exam: PRESENT: normal external ear exam Mouth exam: PRESENT: moist, tongue midline Neck exam: PRESENT: full ROM. ABSENT: carotid bruit, JVD, lymphadenopathy, thyromegaly Respiratory exam: PRESENT: clear to auscultation ana Cardiovascular exam: PRESENT: RRR. ABSENT: diastolic murmur, rubs, systolic [place] Pulses: PRESENT: normal dorsalis pedis pul, +2 pedal pulses bilateral Vascular exam: PRESENT: normal capillary refill GI/Abdominal exam: PRESENT: normal bowel sounds, soft. ABSENT: distended, guarding, mass, organolmegaly, rebound, tenderness Rectal exam: PRESENT: deferred Neurological exam: PRESENT: alert, awake, oriented to person. ABSENT: motor sensory deficit Psychiatric exam: PRESENT: appropriate affect, normal mood. ABSENT: homicidal ideation, suicidal ideation Skin exam: PRESENT: dry, intact, warm. ABSENT: cyanosis, rash Results Laboratory Results: 04/10/19 06:55 04/10/19 06:55 04/10/19 04/10/19 06:55 06:55 WBC 5.0 RBC 4.07 L Hgb 11.9 L Hct 37.1 L MCV 91 MCH 29.3 MCHC 32.1 RDW 17.5 H Plt Count 138 L Seg Neutrophils % 79.4 H Lymphocytes % 9.5 L Monocytes % 10.2 Eosinophils % 0.9 Basophils % 0.0 Absolute Neutrophils 4.0 Absolute Lymphocytes 0.5 Absolute Monocytes 0.5 Absolute Eosinophils 0.0 Absolute Basophils 0.0 Sodium 141.3 Potassium 5.0 Chloride 104 Carbon Dioxide 23 Anion Gap 14 BUN 69 H Creatinine 7.23 H Est GFR ( Amer) 9 L Est GFR (Non-Af Amer) 7 L Glucose 83 Calcium 8.1 L Magnesium 1.9 04/07/19 14:05 Catheterized Urine Urine Culture - Final Enterococcus Faecalis(Group D) 04/07/19 04/07/19 04/07/19 10:41 10:41 13:48 Creatine Kinase 83 CK-MB (CK-2) 1.58 Troponin I 0.761 1.050 NT-Pro-B Natriuret Pep 04/08/19 05:07 Creatine Kinase CK-MB (CK-2) Troponin I NT-Pro-B Natriuret Pep [id number] H Impressions: Chest X-Ray 04/07/19 10:53 IMPRESSION: CHF. Pleural effusions. No change. 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 Is this a current diagnosis for this admission?: Yes Plan: Currently all stable (4) Hypoxemia Is this a current diagnosis for this admission?: Yes Plan: Continues to oxygen's (5) Pacemaker Is this a current diagnosis for this admission?: Yes (6) Chronic deep vein thrombosis (DVT) Qualifiers: DVT location: lower extremity Affected thrombotic vein of extremity: fem oral Laterality: right Qualified Code(s): I82.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 Is this a current diagnosis for this admission?: Yes Plan: Continue to Eliquis (7) Coronary artery disease Qualifiers: Coronary Disease-Associated Artery/Lesion type: unspecified vessel or lesion type Is this a current diagnosis for this admission?: Yes Plan: Elevated troponins mostly a non-ST NM due to the most likely underlying congestive heart failure patient is not a candidate for any interventions as per discussed with the cardiology continues to medical management (8) Type 2 diabetes mellitus Qualifiers: Diabetes mellitus mcc insulin use: unspecified terminal supervisor insulin use status Diabetes mellitus complication status: with unspecified complications Qualified Code(s): E11.8 - Type 2 diabetes mellitus with unspecified complications Is this a current diagnosis for this admission?: Yes Plan: Continues a sliding scale (9) Urinary tract bacterial infections Is this a current diagnosis for this admission?: Yes Plan: The patient on IV antibiotic - Time Time Spent with patient: 15-24 minutes Medications reviewed and adjusted accordingly: Yes Anticipated discharge: Other Within: Other - Plan Summary Plan Summary: Discussed with patient family reconsult the digital media planner for hospice arrangement
[2019-04-10] MEDS: INSULIN LISPRO 100 UNIT/ML 3 ML VIAL SUBCUT SCH ×4 (09:05→21:13)
[2019-04-10] MEDS: DOCUSATE SODIUM 100 MG CAPSULE PO SCH ×2 (09:10→17:05)
[2019-04-10] MEDS: CARVEDILOL 3.125 MG TABLET PO SCH ×2 (09:10→21:13)
[2019-04-10] MEDS: SITAGLIPTIN PHOSPHATE 25 MG TABLET PO SCH (09:10)
[2019-04-10] MEDS: APIXABAN 2.5 MG TABLET PO SCH (09:11)
[2019-04-10] MEDS: TAMSULOSIN HCL 0.4 MG CAP.SR.24H PO SCH (09:11)
[2019-04-10] MEDS: CALCIUM CARBONATE 250 MG/VITAMIN D3 125 UNIT TABLET PO SCH ×2 (09:11→21:13)
[2019-04-10] MEDS: CEFEPIME 1 GM/D5W RTU 1 GM/50 ML RTUPB IV SCH (17:13)
[2019-04-10] MEDS: FAMOTIDINE 20 MG TABLET PO SCH (17:16)
--- NOTE | 2019-04-10 21:04 | PDOC PROGRESS REPORT ---
Subjective Progress Note for:: 04/10/19 Subjective:: I saw the patient by the bedside today, he was admitted over the weekend, I had a long discussion with patient's family about his prognosis, he has cardiomyopathy with cardiorenal syndrome there is worsening acute kidney injury, of oliguric type, patient made only 24 cc of urine /24 hours, is a DNR, patient not expected to do well, the option of hospice was also discussed with patient's family Reason For Visit: UROSEPSIS,ACUTE CHF Physical Exam Vital Signs: Temp Pulse Resp BP Pulse Ox 98.1 F 77 20 113/70 98 04/10/19 19:23 04/10/19 19:23 04/10/19 19:23 04/10/19 19:23 04/10/19 19:23 Intake & Output 04/09/19 04/10/19 04/11/19 06:59 06:59 06:59 Intake Total 510 150 340 Output Total 0 20 0 Balance 510 130 340 Weight 91.8 kg 94.8 kg General appearance: PRESENT: no acute distress Eye exam: PRESENT: PERRLA Respiratory exam: PRESENT: clear to auscultation ana Cardiovascular exam: PRESENT: +S1, +S2 Neurological exam: PRESENT: alert Results Laboratory Results: 04/10/19 06:55 04/10/19 06:55 04/10/19 04/10/19 06:55 06:55 WBC 5.0 RBC 4.07 L Hgb 11.9 L Hct 37.1 L MCV 91 MCH 29.3 MCHC 32.1 RDW 17.5 H Plt Count 138 L Seg Neutrophils % 79.4 H Lymphocytes % 9.5 L Monocytes % 10.2 Eosinophils % 0.9 Basophils % 0.0 Absolute Neutrophils 4.0 Absolute Lymphocytes 0.5 Absolute Monocytes 0.5 Absolute Eosinophils 0.0 Absolute Basophils 0.0 Sodium 141.3 Potassium 5.0 Chloride 104 Carbon Dioxide 23 Anion Gap 14 BUN 69 H Creatinine 7.23 H Est GFR ( Amer) 9 L Est GFR (Non-Af Amer) 7 L Glucose 83 Calcium 8.1 L Magnesium 1.9 04/07/19 14:05 Catheterized Urine Urine Culture - Final Enterococcus Faecalis(Group D) 04/07/19 04/07/19 04/07/19 10:41 10:41 13:48 Creatine Kinase 83 CK-MB (CK-2) 1.58 Troponin I 0.761 1.050 NT-Pro-B Natriuret Pep 04/08/19 05:07 Creatine Kinase CK-MB (CK-2) Troponin I NT-Pro-B Natriuret Pep [id number] H Impressions: Chest X-Ray 04/07/19 10:53 IMPRESSION: CHF. Pleural effusions. No change. Assessment & Plan - Diagnosis (1) Acute kidney injury Is this a current diagnosis for this admission?: Yes Plan: He has oliguric acute kidney injury, patient made only 24 cc of urine in 24 hours, patient is not a candidate for dialysis (2) Non-STEMI (non-ST elevated myocardial infarction) Is this a current diagnosis for this admission?: Yes (3) Cardiorenal syndrome with renal failure Is this a current diagnosis for this admission?: Yes Plan: He has cardiorenal syndrome ,prognosis is very poor
[2019-04-10] MEDS: ATORVASTATIN CALCIUM 40 MG TABLET PO SCH (21:13)
[2019-04-11 06:49] LABS: ANION GAP 11 (5-19); BLOOD UREA NITROGEN 82 mg/dL (7-20); CALCIUM 8.3 mg/dL (8.4-10.2); CARBON DIOXIDE 25 mmol/L (22-30); CHLORIDE 103 mmol/L (98-107); GLUCOSE 91 mg/dL (75-110); POTASSIUM 5.4 mmol/L (3.6-5.0); SODIUM 138.8 mmol/L (137-145)
[2019-04-11] MEDS: INSULIN LISPRO 100 UNIT/ML 3 ML VIAL SUBCUT SCH ×3 (07:46→21:16)
--- NOTE | 2019-04-11 09:24 | PDOC PROGRESS REPORT ---
Subjective Progress Note for:: 04/11/19 Subjective:: Patient is currently doing fair Patient is more alert awake Patient kidney function is worsening Electrolytes is all stable Seen by the cardiology no interventions require Patient's not candidate for renal replacement therapy and family did not want any go for renal replacement therapy Reason For Visit: UROSEPSIS,ACUTE CHF Physical Exam Vital Signs: Temp Pulse Resp BP Pulse Ox 97.8 F 65 17 129/83 H 100 04/11/19 03:24 04/11/19 07:43 04/11/19 07:43 04/11/19 07:43 04/11/19 07:43 Intake & Output 04/10/19 04/11/19 04/12/19 06:59 06:59 06:59 Intake Total 150 340 Output Total 20 0 Balance 130 340 Weight 94.8 kg 92.2 kg General appearance: PRESENT: no acute distress Head exam: PRESENT: atraumatic, normocephalic Eye exam: PRESENT: conjunctiva pink, EOMI, PERRLA. ABSENT: scleral icterus Ear exam: PRESENT: normal external ear exam Mouth exam: PRESENT: moist, tongue midline Neck exam: PRESENT: full ROM. ABSENT: carotid bruit, JVD, lymphadenopathy, thyromegaly Respiratory exam: PRESENT: decreased breath sounds Cardiovascular exam: PRESENT: RRR. ABSENT: diastolic murmur, rubs, systolic murmur Vascular exam: PRESENT: normal capillary refill GI/Abdominal exam: PRESENT: normal bowel sounds, soft. ABSENT: distended, guarding, mass, organolmegaly, rebound, tenderness Rectal exam: PRESENT: deferred Neurological exam: PRESENT: alert, awake, oriented to person, oriented to place, oriented to time, oriented to situation, CN II-XII grossly intact. ABSENT: motor sensory deficit Psychiatric exam: PRESENT: appropriate affect, normal mood. ABSENT: homicidal ideation, suicidal ideation Skin exam: PRESENT: dry, intact, warm. ABSENT: cyanosis, rash Results Laboratory Results: 04/10/19 06:55 04/11/19 05:40 04/11/19 05:40 Sodium 138.8 Potassium 5.4 H Chloride 103 Carbon Dioxide 25 Anion Gap 11 BUN 82 H Creatinine 8.17 H Est GFR ( Amer) 8 L Est GFR (Non-Af Amer) 6 L Glucose 91 Calcium 8.3 L 04/07/19 14:05 Catheterized Urine Urine Culture - Final Enterococcus Faecalis(Group D) 04/07/19 04/07/19 04/07/19 10:41 10:41 13:48 Creatine Kinase 83 CK-MB (CK-2) 1.58 Troponin I 0.761 1.050 NT-Pro-B Natriuret Pep 04/08/19 05:07 Creatine Kinase CK-MB (CK-2) Troponin I NT-Pro-B Natriuret Pep [id number] H Impressions: Chest X-Ray 04/07/19 10:53 IMPRESSION: CHF. Pleural effusions. No change. 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 Is this a current diagnosis for this admission?: Yes Plan: Currently all stable (4) Hypoxemia Is this a current diagnosis for this admission?: Yes Plan: Continues to oxygen's (5) Pacemaker Is this a current diagnosis for this admission?: Yes (6) Chronic deep vein thrombosis (DVT) Qualifiers: DVT location: lower extremity Affected thrombotic vein of extremity: femoral Laterality: right Qualified Code(s): I82.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 Is this a current diagnosis for this admission?: Yes Plan: Continue to Eliquis (7) Coronary artery disease Qualifiers: Coronary Disease-Associated Artery/Lesion type: unspecified vessel or lesion type Is this a current diagnosis for this admission?: Yes Plan: Elevated troponins mostly a non-ST MA due to the most likely underlying congestive heart failure patient is not a candidate for any interventions as per discussed with the cardiology continues to medical management (8) Type 2 diabetes mellitus Qualifiers: Diabetes mellitus instructional technology specialist insulin use: unspecified assisted insulin use status Diabetes mellitus complication status: with unspecified complications Qualified Code(s): E11.8 - Type 2 diabetes mellitus with unspecified complications Is this a current diagnosis for this admission?: Yes Plan: Continues a sliding scale (9) Urinary tract bacterial infections Is this a current diagnosis for this admission?: Yes - Time Time Spent with patient: 15-24 minutes Medications reviewed and adjusted accordingly: Yes Anticipated discharge: Other Within: Other - Plan Summary Plan Summary: Discussed with the patient's family Ashley the daughter who has a power of commercial real estate attorney regarding the patient's current conditions Patient's family did not want any renal replacement therapy Discussed with the cardiology and nephrology and suggest pretty much hospice care Patient at this point going to the [facility] for hospice care Consult the planner internship for that hospice care and comfort care management
[2019-04-11] MEDS: DOCUSATE SODIUM 100 MG CAPSULE PO SCH ×2 (10:20→18:21)
[2019-04-11] MEDS: TAMSULOSIN HCL 0.4 MG CAP.SR.24H PO SCH (10:20)
[2019-04-11] MEDS: CARVEDILOL 3.125 MG TABLET PO SCH ×2 (10:20→21:16)
[2019-04-11] MEDS: CALCIUM CARBONATE 250 MG/VITAMIN D3 125 UNIT TABLET PO SCH ×2 (10:21→21:16)
[2019-04-11] MEDS: FAMOTIDINE 20 MG TABLET PO SCH (18:21)
[2019-04-11] MEDS: ATORVASTATIN CALCIUM 40 MG TABLET PO SCH (21:16)
--- NOTE | 2019-04-12 09:41 | PDOC PROGRESS REPORT ---
Subjective Progress Note for:: 04/12/19 Subjective:: Patient is currently doing fair Patient is more alert awake Patient kidney function is worsening Electrolytes is all stable Seen by the cardiology no interventions require Patient's not candidate for renal replacement therapy and family did not want any go for renal replacement therapy Reason For Visit: UROSEPSIS,ACUTE CHF Physical Exam Vital Signs: Temp Pulse Resp BP Pulse Ox 97.5 F 62 18 122/64 92 04/12/19 07:44 04/12/19 07:44 04/12/19 07:44 04/12/19 07:44 04/12/19 07:44 Intake & Output 04/11/19 04/12/19 04/13/19 06:59 06:59 06:59 Intake Total 340 268 Output Total 0 200 Balance 340 68 Weight 92.2 kg 90.8 kg General appearance: PRESENT: no acute distress, well-developed, well-nourished Head exam: PRESENT: atraumatic, normocephalic Eye exam: PRESENT: conjunctiva pink, EOMI, PERRLA. ABSENT: scleral icterus Ear exam: PRESENT: normal external ear exam Mouth exam: PRESENT: moist, tongue midline Neck exam: PRESENT: full ROM. ABSENT: carotid bruit, JVD, lymphadenopathy, thyromegaly Respiratory exam: PRESENT: clear to auscultation ana Cardiovascular exam: PRESENT: RRR. ABSENT: diastolic murmur, rubs, systolic mur mur Pulses: PRESENT: normal dorsalis pedis pul, +2 pedal pulses bilateral Vascular exam: PRESENT: normal capillary refill GI/Abdominal exam: PRESENT: normal bowel sounds, soft. ABSENT: distended, guarding, mass, organolmegaly, rebound, tenderness Rectal exam: PRESENT: deferred Neurological exam: PRESENT: alert, awake, oriented to person, oriented to place, oriented to time, oriented to situation, CN II-XII grossly intact. ABSENT: motor sensory deficit Psychiatric exam: PRESENT: appropriate affect, normal mood. ABSENT: homicidal ideation, suicidal ideation Skin exam: PRESENT: dry, intact, warm. ABSENT: cyanosis, rash Results Laboratory Results: 04/10/19 06:55 04/11/19 05:40 04/07/19 04/07/19 04/07/19 10:41 10:41 13:48 Creatine Kinase 83 CK-MB (CK-2) 1.58 Troponin I 0.761 1.050 NT-Pro-B Natriuret Pep 04/08/19 05:07 Creatine Kinase CK-MB (CK-2) Troponin I NT-Pro-B Natriuret Pep [id number] H Impressions: Chest X-Ray 04/07/19 10:53 IMPRESSION: CHF. Pleural effusions. No change. 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 Is this a current diagnosis for this admission?: Yes (4) Hypoxemia Is this a current diagnosis for this admission?: Yes (5) Pacemaker Is this a current diagnosis for this admission?: Yes (6) Chronic deep vein thrombosis (DVT) Qualifiers: DVT location: lower extremity Affected thrombotic vein of extremity: femoral Laterality: right Qualified Code(s): I82.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 Is this a current diagnosis for this admission?: Yes (7) Coronary artery disease Qualifiers: Coronary Disease-Associated Artery/Lesion type: unspecified vessel or lesion type Is this a current diagnosis for this admission?: Yes (8) Type 2 diabetes mellitus Qualifiers: Diabetes mellitus half-way insulin use: unspecified half-way insulin use status Diabetes mellitus complication status: with unspecified complications Qualified Code(s): E11.8 - Type 2 diabetes mellitus with unspecified complications Is this a current diagnosis for this admission?: Yes (9) Urinary tract bacterial infections Is this a current diagnosis for this admission?: Yes - Time Time Spent with patient: 15-24 minutes Medications reviewed and adjusted accordingly: Yes Anticipated discharge: Other Within: Other - Plan Summary Plan Summary: We will waiting for the insurance to approve for the hospice care
[2019-04-12] MEDS: INSULIN LISPRO 100 UNIT/ML 3 ML VIAL SUBCUT SCH (09:50)
[2019-04-12] MEDS: DOCUSATE SODIUM 100 MG CAPSULE PO SCH ×2 (13:31→18:37)
[2019-04-12] MEDS: CARVEDILOL 3.125 MG TABLET PO SCH ×2 (13:32→22:08)
[2019-04-12] MEDS: TAMSULOSIN HCL 0.4 MG CAP.SR.24H PO SCH (13:33)
[2019-04-12] MEDS: CALCIUM CARBONATE 250 MG/VITAMIN D3 125 UNIT TABLET PO SCH ×2 (13:36→22:08)
--- NOTE | 2019-04-12 17:17 | PDOC TRANSFER SUMMARY ---
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 Is this a current diagnosis for this admission?: Yes (4) Hypoxemia Is this a current diagnosis for this admission?: Yes (5) Pacemaker Is this a current diagnosis for this admission?: Yes (6) Chronic deep vein thrombosis (DVT) Is this a current diagnosis for this admission?: Yes (7) Coronary artery disease Is this a current diagnosis for this admission?: Yes (8) Type 2 diabetes mellitus Is this a current diagnosis for this admission?: Yes (9) Urinary tract bacterial infections Is this a current diagnosis for this admission?: Yes - Additional Information Resuscitation Status: Do Not Resuscitate Discharge Diet: Regular Discharge Activity: Activity As Tolerated Prescriptions: Morphine Sulfate [Roxanol] 20 mg PO Q3HP PRN #20 ml PRN Reason: Home Medications: Calcium Carbonate/Vitamin D3 [Calcium 600 + Vit D Tablet] 1 tab PO Q12 06/24/17 Cyanocobalamin (Vitamin B-12) [Vitamin B-12 250 mcg Tablet] 250 mcg PO DAILY 06/24/17 Tamsulosin HCl [Flomax 0.4 mg Cap.sr] 0.4 mg PO DAILY 06/24/17 Sitagliptin Phosphate [Januvia 50 mg Tablet] 100 mg PO DAILY 03/09/19 Carvedilol [Coreg 6.25 mg Tablet] 6.25 mg PO Q12 #60 tablet 03/16/19 Famotidine [Pepcid 20 mg Tablet] 20 mg PO Q12 #60 tablet 03/16/19 Atorvastatin Calcium [Lipitor 80 mg Tablet] 80 mg PO QHS 04/07/19 Torsemide [Demadex 10 mg Tablet] 10 mg PO DAILY 04/07/19 Morphine Sulfate [Roxanol] 20 mg PO Q3HP PRN #20 ml 04/12/19 History of Present Illness Admission Date/PCP: 04/07/19 15:15 JEANNIE EISENBERG MD History of Present Illness: PRASANNA NAVARRETE is a 89 year old male This is a 89-year-old male with a history of the congestive heart failure with EF is 20% patient's not candidate for any interventions and as per cardiology and the patient family refused for the [employer] with history of the chronic embolic phenomena currently on a chronic anticoagulations history of the underlying dementia type 2 diabetes hypertension's and chronic kidney disease. Patient is recently admitting in the hospital for the congestive heart failure and acute renal failure and the patient was seen by the cardiology and nephrology. Patient's was discharged with the medical management to the nursing facility As per discussed with the patient's daughter Ashley who has a power of commercial real estate attorney patient is a DNR/DNI Patient is brought to the emergency department with a complaining of shortness of the breath and a fever and the patient's underwent further testing in the ER with source of possible urosepsis with elevated white count and a positive urine Patient also dehydrated and acute renal failure top of the acute congestive heart failure Several issue with the low blood pressure given the last admissions At this point decided to admit the patient's in IMCU for further evaluations Patient is denied any chest pain denied any shortness of the breath in the ER Patient is back to the baseline Patient is received IV antibiotic IV Lasix and IV fluid in the ER Discussed with the daughter on the bedside regarding the patient's current conditions still agree with the DNR/DNI with the not a very good long-term prognosis Hospital Course Hospital Course: This is a 89-year-old male with a significant history of the coronary artery disease congestive heart failure with EF is less than 20%'s with a chronic kidney disease chronic DVT and chronic multiple other comorbidity including the dementia's came to the emergency department with a complaining of a short of breath sepsis and UTI and pneumonia Patient was treated with IV antibiotics patient also have a issue with the worsening the kidney function with a creatinine go to 7.5 and patient unable to make any urine Patient at this point very low EF not a candidate for any cardiac interventions and the cardiology was consulted Discussed with the family do not want to go for any hemodialysis and discussed with the nephrology Dr. Ordaz and suggest nothing they can offer at this point With the worsening the kidney function is worsening the heart failure with the worsening the dementia's at this point person pretty much very poor prognosis and discussed with the family about going to the hospice care Very extensive discussions with the patient's family and agree with the hospice care patient is discharged with the hospice and comfort care To the nursing facility with a life expectancy is less than 6-month Physical Exam Vital Signs: Temp Pulse Resp BP Pulse Ox 97.2 F 69 18 121/69 96 04/12/19 11:32 04/12/19 14:00 04/12/19 11:32 04/12/19 11:32 04/12/19 11:32 Intake & Output 04/11/19 04/12/19 04/13/19 06:59 06:59 06:59 Intake Total 340 268 Output Total 0 200 Balance 340 68 Weight 92.2 kg 90.8 kg General appearance: PRESENT: no acute distress, well-developed, well-nourished Head exam: PRESENT: atraumatic, normocephalic Eye exam: PRESENT: conjunctiva pink, EOMI, PERRLA. ABSENT: scleral icterus Ear exam: PRESENT: normal external ear exam Mouth exam: PRESENT: moist, tongue midline Neck exam: ABSENT: carotid bruit, JVD, lymphadenopathy, thyromegaly Respiratory exam: PRESENT: clear to auscultation ana. ABSENT: rales, rhonchi, wheezes Cardiovascular exam: PRESENT: RRR. ABSENT: diastolic murmur, rubs, systolic murmur Pulses: PRESENT: normal dorsalis pedis pul Vascular exam: PRESENT: normal capillary refill GI/Abdominal exam: PRESENT: normal bowel sounds, soft. ABSENT: distended, guarding, mass, organolmegaly, rebound, tenderness Rectal exam: PRESENT: deferred Extremities exam: PRESENT: full ROM. ABSENT: calf tenderness, clubbing, pedal edema Neurological exam: PRESENT: alert, awake, oriented to person. ABSENT: motor sensory deficit Psychiatric exam: PRESENT: appropriate affect, normal mood. ABSENT: homicidal ideation, suicidal ideation Skin exam: PRESENT: dry, intact, warm. ABSENT: cyanosis, rash Results Laboratory Results: 04/10/19 06:55 04/11/19 05:40 04/07/19 13:17 Blood Blood Culture - Final NO GROWTH IN 5 DAYS 04/07/19 12:21 Blood Blood Culture - Final NO GROWTH IN 5 DAYS 04/07/19 04/07/19 04/07/19 10:41 10:41 13:48 Creatine Kinase 83 CK-MB (CK-2) 1.58 Troponin I 0.761 1.050 NT-Pro-B Natriuret Pep 04/08/19 05:07 Creatine Kinase CK-MB (CK-2) Troponin I NT-Pro-B Natriuret Pep [id number] H Impressions: Chest X-Ray 04/07/19 10:53 IMPRESSION: CHF. Pleural effusions. No change. Transfer Plan - Time Spent with Patient Time spent with patient: Greater than 30 Minutes Qualifiers - * PATIENT BEING DISCHARGED WITH ANY OF THE FOLLOWING DIAGNOSIS: No VTE patient discharged on overlapping Therapy?: Yes Acute Heart Failure Is this a Heart Failure Patient?: No Documentation of LVEF assessment?: Yes a) Discharged on ACEI?: N/A Discharged on ARNI b) Discharges on ARB?: No-document contraindications d) Discharged on evidence-based Beta jaclyn(carvedilol, sustained release metoprolol succinate, or bisoprolol)?: No, document contraindications e) For LVEF <35%, discharged on Aldosterone antagonist?: No-document contraincations 3. Anticoagulant therapy for permanect/persistent/paraoxysmal Afib or Aflutter: No, document contraindications Plan Time Spent: Greater than 30 Minutes - he is discharged with comfort care the multiple comorbidity with a life expectancy is less than 6-month
[2019-04-12] MEDS: FAMOTIDINE 20 MG TABLET PO SCH (17:23)
[2019-04-12] MEDS: ATORVASTATIN CALCIUM 40 MG TABLET PO SCH (22:08)
--- NOTE | 2019-04-13 09:22 | PDOC PROGRESS REPORT ---
Subjective Progress Note for:: 04/10/19 Subjective:: No significant changes from yesterday. Patient seems to be stable with stable pulse and blood pressure but has very little urine output. Creatinine has gone up. Pt is denying any chest arm or neck discomfort. Patient denying any PND, orthopnea. Patient denied any sustained palpitations, dizziness, syncope, near syncope. Patient denying any fever chills. Patient denying any other significant discomfort. Patient is ventricular paced rhythm with underlying atrial fibrillation. Review of systems: Rest review of systems negative. Medications: Medications have been reviewed. Reason For Visit: UROSEPSIS,ACUTE CHF Physical Exam Vital Signs: Temp Pulse Resp BP Pulse Ox 98.1 F 77 20 113/70 98 04/10/19 19:23 04/10/19 19:23 04/10/19 19:23 04/10/19 19:23 04/10/19 19:23 Intake & Output 04/09/19 04/10/19 04/11/19 06:59 06:59 06:59 Intake Total 510 150 340 Output Total 0 20 0 Balance 510 130 340 Weight 91.8 kg 94.8 kg Results Laboratory Results: 04/10/19 06:55 04/10/19 06:55 04/10/19 04/10/19 06:55 06:55 WBC 5.0 RBC 4.07 L Hgb 11.9 L Hct 37.1 L MCV 91 MCH 29.3 MCHC 32.1 RDW 17.5 H Plt Count 138 L Seg Neutrophils % 79.4 H Lymphocytes % 9.5 L Monocytes % 10.2 Eosinophils % 0.9 Basophils % 0.0 Absolute Neutrophils 4.0 Absolute Lymphocytes 0.5 Absolute Monocytes 0.5 Absolute Eosinophils 0.0 Absolute Basophils 0.0 Sodium 141.3 Potassium 5.0 Chloride 104 Carbon Dioxide 23 Anion Gap 14 BUN 69 H Creatinine 7.23 H Est GFR ( Amer) 9 L Est GFR (Non-Af Amer) 7 L Glucose 83 Calcium 8.1 L Magnesium 1.9 04/07/19 14:05 Catheterized Urine Urine Culture - Final Enterococcus Faecalis(Group D) 04/07/19 04/07/19 04/07/19 10:41 10:41 13:48 Creatine Kinase 83 CK-MB (CK-2) 1.58 Troponin I 0.761 1.050 NT-Pro-B Natriuret Pep 04/08/19 05:07 Creatine Kinase CK-MB (CK-2) Troponin I NT-Pro-B Natriuret Pep [id number] H Impressions: Chest X-Ray 04/07/19 10:53 IMPRESSION: CHF. Pleural effusions. No change. 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 Discussed with Dr. Lvey and family members, they want patient to be now comfort care. He is going under hospice care at [facility]. Will sign off. Should you need any further help please let me know. - Time Time with patient: 15-25 minutes Medications reviewed and adjusted accordingly: Yes
[2019-04-13] MEDS: CARVEDILOL 3.125 MG TABLET PO SCH (09:46)
[2019-04-13] MEDS: CALCIUM CARBONATE 250 MG/VITAMIN D3 125 UNIT TABLET PO SCH (09:46)
[2019-04-13] MEDS: TAMSULOSIN HCL 0.4 MG CAP.SR.24H PO SCH (09:46)
[2019-04-13] MEDS: DOCUSATE SODIUM 100 MG CAPSULE PO SCH (09:46)
[2019-04-13 09:57] LABS: ABSOLUTE EOSINOPHILS # (AUTO) 0.1 10^3/uL (0.0-0.6); ABSOLUTE LYMPHOCYTES (AUTO) 0.7 10^3/uL (0.5-4.7); ABSOLUTE MONOCYTES (AUTO) 0.5 10^3/uL (0.1-1.4); ABSOLUTE NEUT (AUTO) 2.2 10^3/uL (1.7-8.2); BASOPHILS % (AUTO) 0.4 % (0-2); EOSINOPHILS % (AUTO) 2.9 % (0-6); HEMATOCRIT 37.7 % (37.9-51.0); HEMOGLOBIN 12.2 g/dL (13.5-17.0); LYMPHOCYTES % (AUTO) 19.4 % (13-45); MEAN CORPUSCULAR HEMOGLOBIN 29.6 pg (27.0-33.4); MEAN CORPUSCULAR HGB CONC 32.4 g/dL (32.0-36.0); MEAN CORPUSCULAR VOLUME 91 fl (80-97); MONOCYTES % (AUTO) 15.6 % (3-13); PLATELET COUNT 161 10^3/uL (150-450); RED BLOOD COUNT 4.13 10^6/uL (4.35-5.55); RED CELL DISTRIBUTION WIDTH 17.5 % (11.5-14.0); SEGMENTED NEUTROPHILS % (AUTO) 61.7 % (42-78); TOTAL CELLS COUNTED % (AUTO) 100 %; WHITE BLOOD COUNT 3.5 10^3/uL (4.0-10.5)
[2019-04-13 10:17] LABS: ANION GAP 6 (5-19); BLOOD UREA NITROGEN 40 mg/dL (7-20); CALCIUM 8.8 mg/dL (8.4-10.2); CARBON DIOXIDE 30 mmol/L (22-30); CHLORIDE 106 mmol/L (98-107); GLUCOSE 132 mg/dL (75-110); POTASSIUM 4.7 mmol/L (3.6-5.0); SODIUM 141.9 mmol/L (137-145)
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
[2019-04-13 12:39] VITALS: BP 112/69
--- NOTE | 2019-04-13 13:50 | PDOC DISCHARGE SUMMARY ---
General - Admit/Disc Date/PCP Admission Date/Primary Care Provider: 04/07/19 15:15 JEANNIE EISENBERG MD Discharge Date: 04/13/19 - Discharge Diagnosis (1) MADIE (acute kidney injury) Is this a current diagnosis for this admission?: Yes Summary: Currently all improving (2) Anemia in chronic kidney disease (CKD) Is this a current diagnosis for this admission?: Yes Summary: Clear all stable (3) 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 Is this a current diagnosis for this admission?: Yes Summary: It is not a candidate for any interventions per cardiology (4) Hypoxemia Is this a current diagnosis for this admission?: Yes (5) Pacemaker Is this a current diagnosis for this admission?: Yes (6) Chronic deep vein thrombosis (DVT) Is this a current diagnosis for this admission?: Yes Summary: Continues to Eliquis (7) Coronary artery disease Is this a current diagnosis for this admission?: Yes (8) Type 2 diabetes mellitus Is this a current diagnosis for this admission?: Yes (9) Urinary tract bacterial infections Is this a current diagnosis for this admission?: Yes Summary: Clear all resolved - Additional Information Resuscitation Status: Do Not Resuscitate Discharge Diet: Regular Discharge Activity: Activity As Tolerated Prescriptions: Apixaban [Eliquis 2.5 mg Tablet] 2.5 mg PO BID #60 tablet Carvedilol [Coreg 3.125 mg Tablet] 3.125 mg PO Q12 #60 tablet Famotidine [Pepcid 20 mg Tablet] 20 mg PO QPM #30 tablet Home Medications: Calcium Carbonate/Vitamin D3 [Calcium 600 + Vit D Tablet] 1 tab PO Q12 06/24/17 Cyanocobalamin (Vitamin B-12) [Vitamin B-12 250 mcg Tablet] 250 mcg PO DAILY 06/24/17 Tamsulosin HCl [Flomax 0.4 mg Cap.sr] 0.4 mg PO DAILY 06/24/17 Famotidine [Pepcid 20 mg Tablet] 20 mg PO Q12 #60 tablet 03/16/19 Atorvastatin Calcium [Lipitor 80 mg Tablet] 80 mg PO QHS 04/07/19 Apixaban [Eliquis 2.5 mg Tablet] 2.5 mg PO BID #60 tablet 04/13/19 Carvedilol [Coreg 3.125 mg Tablet] 3.125 mg PO Q12 #60 tablet 04/13/19 Famotidine [Pepcid 20 mg Tablet] 20 mg PO QPM #30 tablet 04/13/19 Sitagliptin Phosphate [Januvia 50 mg Tablet] 50 mg PO DAILY #0 04/13/19 Torsemide [Demadex 10 mg Tablet] 10 mg PO DAILY #0 04/13/19 History of Present Illness History of Present Illness: PRASANNA NAVARRETE is a 89 year old male This is a 89-year-old male with a history of the congestive heart failure with EF is 20% patient's not candidate for any interventions and as per cardiology and the patient family refused for the LifeVest with history of the chronic embolic phenomena currently on a chronic anticoagulations history of the underlying dementia type 2 diabetes hypertension's and chronic kidney disease. Patient is recently admitting in the hospital for the congestive heart failure and acute renal failure and the patient was seen by the cardiology and nephrology. Patient's was discharged with the medical management to the nursing facility As per discussed with the patient's daughter Ashley who has a power of deputy commonwealth's attorney patient is a DNR/DNI Patient is brought to the emergency department with a complaining of shortness of the breath and a fever and the patient's underwent further testing in the ER with source of possible urosepsis with elevated white count and a positive urine Patient also dehydrated and acute renal failure top of the acute congestive heart failure Several issue with the low blood pressure given the last admissions At this point decided to admit the patient's in [facility] for further evaluations Patient is denied any chest pain denied any shortness of the breath in the ER Patient is back to the baseline Patient is received IV antibiotic IV Lasix and IV fluid in the ER Discussed with the daughter on the bedside regarding the patient's current conditions still agree with the DNR/DNI with the not a very good long-term prognosis Hospital Course Hospital Course: This is a 89-year-old male with the multiple medical problem as about came to the emergency department with the hypoxia is sepsis and patient was treated with IV antibiotics Patient's initially was not responds very well and patient's kidney function is more worsening. Patient seen by the cardiology with the EF is very low not a candidate for any cardiac interventions and patient's family do not want to do it. Patients at this point pretty much discussed with the family to go to hospice and comfort care because of the multiple comorbidity. Patient's initially not responding but after that patient responds very well patient is back to the baseline's with a kidney function is also improving Patient's family do not want to go for renal replacement therapy and nephrology was consulted at this point and suggest to continues to medical management . Patient still have a multiple other comorbidity with the in and out this conditions with the very low EF with potentially also developed renal insufficiency and at this point worsening the conditions with the decline in the patient's overall health with underlying dementia's I think patients at this point family decided to more put on a comfort care but continues to current medications Patient is currently DNR/DNI We will discharge the patient to the nursing facility as the patient able to do over the and pretty much keep it over there for comfort care if is getting worse conditions Again very extensive discussions with the patient's family and initially unable to afford to go to the hospice care because of the financial issues but I think patients currently doing okay but overall prognosis is still poor due to the multiple comorbidity and patients get a benefit to the nursing facility facility and possible comfort care over there Physical Exam Vital Signs: Temp Pulse Resp BP Pulse Ox 98.0 F 65 18 112/69 100 04/13/19 11:18 04/13/19 11:18 04/13/19 11:18 04/13/19 11:18 04/13/19 11:18 Intake & Output 04/12/19 04/13/19 04/14/19 06:59 06:59 06:59 Intake Total 268 500 Output Total 200 945 Balance 68 -445 Weight 90.8 kg 88.5 kg General appearance: PRESENT: no acute distress, well-developed, well-nourished Head exam: PRESENT: atraumatic, normocephalic Eye exam: PRESENT: conjunctiva pink, EOMI, PERRLA. ABSENT: scleral icterus Ear exam: PRESENT: normal external ear exam Mouth exam: PRESENT: moist, tongue midline Neck exam: PRESENT: full ROM. ABSENT: carotid bruit, JVD, lymphadenopathy, thyromegaly Respiratory exam: PRESENT: clear to auscultation ana Cardiovascular exam: PRESENT: +S1, +S2. ABSENT: diastolic murmur, rubs, systolic murmur Vascular exam: PRESENT: normal capillary refill GI/Abdominal exam: PRESENT: normal bowel sounds, soft. ABSENT: distended, guarding, mass, organolmegaly, rebound, tenderness Rectal exam: PRESENT: deferred Extremities exam: PRESENT: pedal edema Neurological exam: PRESENT: alert, awake, oriented to person, oriented to place, oriented to time, oriented to situation, CN II-XII grossly intact. ABSENT: motor sensory deficit Psychiatric exam: PRESENT: appropriate affect, normal mood. ABSENT: homicidal ideation, suicidal ideation Skin exam: PRESENT: dry, intact, warm. ABSENT: cyanosis, rash Results Laboratory Results: 04/13/19 09:07 04/13/19 09:07 04/13/19 04/13/19 09:07 09:07 WBC 3.5 L RBC 4.13 L Hgb 12.2 L Hct 37.7 L MCV 91 MCH 29.6 MCHC 32.4 RDW 17.5 H Plt Count 161 Seg Neutrophils % 61.7 Lymphocytes % 19.4 Monocytes % 15.6 H Eosinophils % 2.9 Basophils % 0.4 Absolute Neutrophils 2.2 Absolute Lymphocytes 0.7 Absolute Monocytes 0.5 Absolute Eosinophils 0.1 Absolute Basophils 0.0 Sodium 141.9 Potassium 4.7 Chloride 106 Carbon Dioxide 30 Anion Gap 6 BUN 40 H Creatinine 1.83 H Est GFR ( Amer) 43 L Est GFR (Non-Af Amer) 35 L Glucose 132 H Calcium 8.8 04/07/19 13:17 Blood Blood Culture - Final NO GROWTH IN 5 DAYS 04/07/19 12:21 Blood Blood Culture - Final NO GROWTH IN 5 DAYS 04/07/19 04/07/19 04/07/19 10:41 10:41 13:48 Creatine Kinase 83 CK-MB (CK-2) 1.58 Troponin I 0.761 1.050 NT-Pro-B Natriuret Pep 04/08/19 05:07 Creatine Kinase CK-MB (CK-2) Troponin I NT-Pro-B Natriuret Pep [id number] H Impressions: Chest X-Ray 04/07/19 10:53 IMPRESSION: CHF. Pleural effusions. No change. Qualifiers - * PATIENT BEING DISCHARGED WITH ANY OF THE FOLLOWING DIAGNOSIS: No VTE patient discharged on overlapping Therapy?: Yes Acute Heart Failure Is this a Heart Failure Patient?: No Plan Time Spent: Greater than 30 Minutes - Discharge to the nursing facilities Continues to current medications Activity as tolerated The patient's condition worsening is making more comfortable over the
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
== END 2019-04-13 16:17 | DRG 682 ==
LOC: ER 09:42 → EH 15:15 → 3S 18:01
PROVIDERS: ADMIT Family Medicine; ATTEND Family Medicine
DX: N17.9 Acute kidney failure, unspecified (principal); I50.43 Acute on chronic combined systolic (congestive) and diastolic (congestive) heart failure; I13.0 Hypertensive heart and chronic kidney disease with heart failure and stage 1 through stage 4 chronic kidney disease, or unspecified chronic kidney disease; N39.0 Urinary tract infection, site not specified; I82.511 Chronic embolism and thrombosis of right femoral vein; Q60.0 Renal agenesis, unilateral; I42.9 Cardiomyopathy, unspecified; E86.0 Dehydration; Z95.0 Presence of cardiac pacemaker; F03.90 Unspecified dementia, unspecified severity, without behavioral disturbance, psychotic disturbance, mood disturbance, and anxiety; D63.1 Anemia in chronic kidney disease; Z79.01 Long term (current) use of anticoagulants; E11.22 Type 2 diabetes mellitus with diabetic chronic kidney disease; Z66 Do not resuscitate; I25.10 Atherosclerotic heart disease of native coronary artery without angina pectoris; N18.3 Chronic kidney disease, stage 3 (moderate); E78.5 Hyperlipidemia, unspecified; K21.9 Gastro-esophageal reflux disease without esophagitis; M19.90 Unspecified osteoarthritis, unspecified site; N40.0 Benign prostatic hyperplasia without lower urinary tract symptoms; B95.2 Enterococcus as the cause of diseases classified elsewhere; Z51.5 Encounter for palliative care; Z95.5 Presence of coronary angioplasty implant and graft; Z87.891 Personal history of nicotine dependence; Z79.4 Long term (current) use of insulin; Z79.899 Other long term (current) drug therapy; Z91.81 History of falling; Z86.73 Personal history of transient ischemic attack (TIA), and cerebral infarction without residual deficits; Z87.828 Personal history of other (healed) physical injury and trauma
CPT/HCPCS: 36415; 71045; 80048; 80053; 81001; 82550; 82553; 82962; 83605; 83735; 83880; 84484; 85025; 87040; 87086; 87088; 87186; 93005; 93010; 96361; 96374; 96375; 99291; C1758; J0692; J1940; J1956; J3490; J7030